=== PATIENT | male | born 1950 | race African-American/Black ===

== ENCOUNTER 2020-03-07 13:09 | Outpatient (REF) | payer MEDICARE, MEDICAID, SELFPAY ==
--- NOTE | 2020-03-07 | US_ITS ---
EXAMINATION: US SCROTUM CLINICAL INFORMATION: Scrotal swelling. COMPARISON: None TECHNIQUE: A sonogram of the scrotum was performed assessing willoughby-scale appearance and color Doppler flow. Spectral Doppler analysis of the arterial and venous flow were performed in the testes bilaterally. FINDINGS: RIGHT: Right testicle measures 3.6 x 2.6 x 2.1 cm, volume 10.3 mL. No focal testicular parenchymal lesions are visualized. Incidental findings of the right appendix testes is noted measuring 0.2 x 0.3 x 0.2 cm. A calcified lesion is seen likely a scrotal pole measuring 0.2 cm. Spectral Doppler analysis of the arterial and venous flow is normal in the right testis. Right epididymal head is normal in size. A small anechoic cyst in the epididymal tail versus a septation in a hydrocele. No right varicocele is seen. There is small right hydrocele. Right epididymal Doppler flow is normal. LEFT: Left testicle measures 3.2 x 2.0 x 2.5 cm, volume 9.6 mL. No focal testicular parenchymal lesions are visualized. Spectral Doppler analysis of the arterial and venous flow is normal in the left testis. Left epididymal head is normal in size. There are small anechoic cysts in the epididymis with largest measuring 0.5 x 0.5 x 0.5 cm. There is a small complex left hydrocele with septations. No left varicocele is seen. Left epididymal Doppler flow is normal. IMPRESSION: Bilateral hydroceles. No varicocele. Right epididymal tail cyst versus septated hydrocele. Right scrotal lucy and right appendix testes Left complex hydrocele and epididymal cyst x2
== END 2020-03-07 13:10 | disposition home or self-care (01) ==
LOC: HO.US 13:09
PROVIDERS: PCP Internal Medicine Geriatric Medicine; Visit Provider Internal Medicine Geriatric Medicine
DX: N50.89 Other specified disorders of the male genital organs (principal)
CPT/HCPCS: 76870

== ENCOUNTER → 2020-04-05 14:33 | Outpatient (BNVA) | payer MEDICARE, SELFPAY | PROVIDERS: PCP Internal Medicine Geriatric Medicine; Referring Provider Internal Medicine Geriatric Medicine; Visit Provider Urology | DX: Z76.89 Persons encountering health services in other specified circumstances (principal) | CPT/HCPCS: 99202 ==

== ENCOUNTER → 2020-12-21 11:46 | Outpatient (BNVA) | payer MEDICARE, SELFPAY | PROVIDERS: PCP Internal Medicine Geriatric Medicine; Referring Provider Internal Medicine Geriatric Medicine; Visit Provider Nurse Practitioner Family | DX: K92.1 Melena (principal) | CPT/HCPCS: 99202 ==

== ENCOUNTER 2021-01-04 13:24 | Outpatient (REF) | payer MEDICARE, SELFPAY ==
[2021-01-04 13:55] LABS: OBS1 POSITIVE (NEGATIVE)
[2021-01-04 13:56] LABS: OBS Int Ctl Valid YES; OBS2 NEGATIVE (NEGATIVE); OBS3 NEGATIVE (NEGATIVE)
== END 2021-01-04 13:25 | disposition home or self-care (01) ==
LOC: HO.LNP 13:24
PROVIDERS: Visit Provider Nurse Practitioner Family
DX: K92.1 Melena (principal)
CPT/HCPCS: 82270

== ENCOUNTER 2021-01-25 12:06 | Outpatient (REF) | payer MEDICARE, SELFPAY ==
[2021-01-25 14:23] LABS: Hematocrit 36.4 % (42-52); Hemoglobin 11.8 g/dl (14.0-18.0); Mean Corpuscular HGB Conc 32.4 g/dl (31.0-36.0); Mean Corpuscular Hemoglobin 29.1 pg (27.0-33.0); Mean Corpuscular Volume 89.7 fL (80-98); Mean Platelet Volume 9.8 fL (9.4-12.4); Platelet Count 190 X10*3/uL (160-400); Red Blood Count 4.06 X10*6/uL (4.60-5.80); Red Cell Distribution Width 13.8 % (11.0-16.0); White Blood Count 7.2 X10*3/uL (4.8-10.8)
[2021-01-25 14:45] LABS: Alanine Aminotransferase 38 U/L (0-40); Alkaline Phosphatase 121 U/L (39-117); Anion Gap 12 (12-20); Aspartate Amino Transferase 37 U/L (5-37); Bilirubin Total 0.8 mg/dL (0.0-1.0); Blood Urea Nitrogen 17 mg/dL (9-16); Calcium 9.5 mg/dL (8.4-10.2); Carbon Dioxide 29 mmol/L (22-29); Chloride 105 mmol/L (96-108); Estimated Glomerular Filt Rate > 60; Glucose Random 94 mg/dL (60-115); Potassium 4.4 mmol/L (3.3-5.1); Sodium 142 mmol/L (135-145); Total Protein 6.8 g/dL (6.5-8.0)
== END 2021-01-25 12:07 | disposition home or self-care (01) ==
LOC: CF 12:06
PROVIDERS: PCP Internal Medicine Geriatric Medicine; Referring Provider Internal Medicine Geriatric Medicine; Visit Provider Nurse Practitioner Family
DX: Z01.818 Encounter for other preprocedural examination (principal); K62.5 Hemorrhage of anus and rectum
CPT/HCPCS: 36415; 80053; 85027; 99212

== ENCOUNTER 2021-03-22 08:05 | Day surgery (SDC) | payer MEDICARE, SELFPAY ==
[2021-03-22 08:42] VITALS: BP 177/99; PULSE 59; RESP 16; TEMP 36.4; O2SAT 99; BMI 22.7
--- NOTE | 2021-03-22 08:58 | P.CONAN_ITS ---
[facility] Active Problems Active Problems: All Active Problems (Updated 03/16/21 @ 09:44 by Viridiana garcia, RN) Nocturia associated with benign prostatic hyperplasia (Acute) Bladder outlet obstruction (Acute) Past Medical History Medical History Cellulitis of right leg COPD (chronic obstructive pulmonary disease) History of CVA (cerebrovascular accident) History of opioid abuse HTN (hypertension) Hx of hepatitis C On beta bebeto at home Surgical History History of Problems with Anesthesia: No Social History Social History Patient Tobacco Use Status: Never used Tobacco Substance Use Type Other:: On suboxone Are you DNR?: No Advance Directives: No Advance Directives Information Provided: Yes Meds Allergies Allergy/AdvReac Type Severity Reaction Status Date / Time shrimp Allergy mild Verified 03/16/21 09:44 Home Medications Medication Instructions Recorded Confirmed Last Taken Type amlodipine 10 mg tablet 10 mg PO DAILY 04/05/20 03/16/21 Unknown History atorvastatin 40 mg tablet 40 mg PO DAILY 04/05/20 03/16/21 Unknown History buprenorphine 2 mg-naloxone 0.5 mg 2 mg SUBLINGUAL DAILY 04/05/20 03/22/21 03/22/21 04:00 History sublingual film albuterol sulfate 90 mcg/actuation 0 mcg INHALATION 12/21/20 Unknown History aerosol inhaler apixaban 5 mg tablet (Eliquis) 5 mg PO BID 12/21/20 03/22/21 03/08/21 History blood pressure test kit-large #1 ea 12/21/20 Unknown History melatonin 3 mg tablet (Melatin) 3 mg PO BEDTIME PRN 12/21/20 03/16/21 Unknown History metoprolol succinate 25 mg 25 mg PO DAILY 12/21/20 03/22/21 03/22/21 06:30 History tablet,extended release 24 hr tiotropium bromide 18 mcg capsule 1 cap INHALATION DAILY 12/21/20 03/16/21 Unknown History with inhalation device (Spiriva with HandiHaler) pantoprazole 40 mg tablet,delayed 1 tab PO DAILY 03/16/21 03/16/21 Unknown History release Exam Exam Date and Time: March 22, 2021 0858 Height,Weight and Vital Signs: Height 5 ft 9 in Weight 69.853 kg Last Vital Signs Temp 97.6 F 03/22/21 08:42 Pulse 59 03/22/21 08:42 Resp 16 03/22/21 08:42 BP 177/99 H 03/22/21 08:42 Pulse Ox 99 03/22/21 08:42 Airway Mallampati Class: II (Edentulous) TM Dist: >3cm Neck ROM: Full Denture: Upper and Lower Loose/Missing/Broken Teeth: Yes, Upper and Lower Heart: RRR Lungs: CTA Assessment and Plan Assessment Anesthesia Assessment: Anesthesia Plan Discussed and Chart Reviewed Final Anesthetic Review History of Problems with Anesthesia: No NPO: Yes ASA Class: III Final Preanesthetic Review: Meds/Allgs Chart Reviewed, Consent Obtained/Reviewed and Anes Risks/Benef Reviewed Patient Risk: Intermediate Procedure Risk: Low Anesthetic Plan Anesthetic Plan: MAC: Disposition: Standard PACU
[2021-03-22] MEDS: Lactated Ringers 1,000 ML 50 ML IVCONT (09:07)
--- NOTE | 2021-03-22 09:12 | P.HPSUR_ITS ---
Pre-Procedural Eval Section A Date of Service: 03/22/21 Section B Chief Complaint: Screening Relevant Family History (Specify if Yes): No Relevant Social History: None Present Medications: see Short Stay Collaborative assessment Medical History: Significant History (Cellulitis of right leg COPD (chronic obstructive pulmonary disease) History of CVA (cerebrovascular accident) History of opioid abuse HTN (hypertension) Hx of hepatitis C On beta bebeto at home) History of Previous Operations: Relevant previous surgery/procedure and date(s) (brain surgery) Allergies: Allergies Allergy/AdvReac Type Severity Reaction Status Date / Time shrimp Allergy mild Verified 03/16/21 09:44 Review of Systems Sugical H&P ROS: Negative: Constitution, Cardiovascular, Respiratory, Neurological, Psychiatric, Hem-Onc, Allergic/Immunologic, Gastrointestinal, Genitourinary, Musculoskeletal, Integumentary, Endocrine and Eyes/Ears/Nose/Throat Exam Surgical H&P Exam: Normal: HEENT, Normal: Heart, Normal: Lungs, Normal: Extre mities, Normal: Abdomen, Normal: Skin and Normal: Neurological Plan Diagnosis/Plan: Unchanged I have reviewed the history and physical and performed a pertinent physical examination on my patient. No changes have occurred unless specified.
--- NOTE | 2021-03-22 09:15 | P.BOP_ITS ---
Brief Operative Note Date of Service: 03/22/21 Pre-op diagnosis: colon screening Surgeon: Jordyn Cortez MD Was an Ship'S Carpenter used for this Procedure?: No Estimated blood loss (mL): 0
--- NOTE | 2021-03-22 09:15 | PM.OP ---
Brief Operative Note Date of Service: 03/22/21 Pre-op diagnosis: colon screening Surgeon: Jordyn Cortez MD Was an Grant Specialist used for this Procedure?: No Estimated blood loss (mL): 0
--- NOTE | 2021-03-22 09:38 | P.OP_ITS ---
Operative Note Operative Note Date of Service: 03/22/21 Narrative: Operative Information Procedure Description: Colonoscopy COLONOSCOPY Instrument: Olympus variable stiffness pediatric scope 190L Colonoscopy Monitoring: Vital signs and clinical assessment, continuous EKG monitoring, Pulse oximetry, Carbon Dioxide monitoring and blood pressure monitoring were done throughout the procedure. Colon withdrawal time was 9 minutes. Procedure: The patient was placed in the left lateral decubitis position and pre-procedure medications were administered. After a digital rectal examination of the ano-rectum, the video colonoscope was inserted into the rectum and advanced through the colon to the cecum/TI. The colonoscope was slowly withdrawn in a retrograde panoramic fashion and the colon mucosa was carefully examined including a retroflexed view of the rectum. Findings and interventions are described below. Procedure Difficulty:moderate, looping, pressure applied to get to cecum Findings: Terminal Ileum-normal Cecum:normal Ascending Colon: normal Transverse Colon -normal Descending Colon:normal Sigmoid Colon: normal Rectum: Retroflexion with small internal hemorrhoids, grade I, patchy erythema with few erosions noted, bx taken Anorectum - normal Colon preparation: Marlette Bowel Preparation Scale Right colon; 2 Transverse colon: 2 Left colon; 2 (0 = Unprepared colon segment with mucosa not seen due to solid stool that cannot be cleared. 1 = Portion of mucosa of the colon segment seen, but other areas of the colon segment not well seen due to staining, residual stool and/or opaque liquid. 2 = Minor amount of residual staining, small fragments of stool and/or opaque liquid, but mucosa of colon segment seen well. 3 = Entire mucosa of colon segment seen well with no residual staining, small fragments of stool or opaque liquid) Impression and Post Procedure Diagnosis: internal hemorrhoids mild proctitis Plan: High fiber diet leaflet Avoid straining at stool, epsom salts and sitz bath, anusol supps or cream Repeat Colonoscopy in 10 years or earlier if clinically indicated if symptomatic from proctitis then can treat with steroid or mesalamine supps Above findings were reviewed with the patient and relevant handouts were provided if indicated.
[2021-03-22 09:46] VITALS: BP 113/66; PULSE 60; RESP 16; TEMP 36.4; O2SAT 99
[2021-03-22 10:01] VITALS: BP 141/74; PULSE 55; RESP 17; TEMP 36.4; O2SAT 98
== END 2021-03-22 11:32 | disposition home or self-care (01) ==
PROVIDERS: PCP Internal Medicine Geriatric Medicine; Visit Provider Internal Medicine Gastroenterology
PROC: 0DJD8ZZ Inspection of Lower Intestinal Tract, Via Natural or Artificial Opening Endoscopic (ICD-10-PCS; CPT 45378; principal; 2021-03-22 09:20)
DX: Z12.11 Encounter for screening for malignant neoplasm of colon (principal); K64.0 First degree hemorrhoids; K62.89 Other specified diseases of anus and rectum; I10 Essential (primary) hypertension; J44.9 Chronic obstructive pulmonary disease, unspecified; I82.409 Acute embolism and thrombosis of unspecified deep veins of unspecified lower extremity; Z86.73 Personal history of transient ischemic attack (TIA), and cerebral infarction without residual deficits; Z79.01 Long term (current) use of anticoagulants; F11.20 Opioid dependence, uncomplicated; Z86.19 Personal history of other infectious and parasitic diseases; Z79.899 Other long term (current) drug therapy
CPT/HCPCS: 45380; 88305

== ENCOUNTER 2024-11-10 09:57 | Inpatient (IN) | payer MEDICARE, SELFPAY ==
[2024-11-10] VITALS (8 sets, daily range): BP systolic 116–141; BP diastolic 76–83; PULSE 83–100; RESP 12–100; TEMP 36.4–37; O2SAT 83–99; BMI 24.0; BMI 24.3; BMI 24.4
--- NOTE | ~2024-11-10 | US_ITS ---
EXAMINATION: US TRIPLEX LOWER EXTREMITY, BILATERAL CLINICAL INFORMATION: Pulmonary embolus COMPARISON: None available. TECHNIQUE: Color-flow triplex imaging with spectral analysis and compression Doppler were performed on the bilateral lower extremities. FINDINGS: Respiratory variation, normal compression and augmented flow are noted throughout the bilateral lower extremities. The visualized common femoral vein, superficial femoral vein, profunda femoral vein, popliteal vein and midcalf peroneal and posterior tibial venous segments show no evidence of deep venous thrombosis bilaterally. There is no Marcum's cyst. The left greater saphenous vein demonstrates noncompressible thrombus. US/US venous duplex LE BI IMPRESSION: 1. No evidence of deep venous thrombosis involving the bilateral lower extremities. 2. There is superficial thrombosis involving the LEFT greater saphenous vein. Electronically signed by: Brian Medina MD 11/10/2024 03:51 PM EDT
--- NOTE | ~2024-11-10 | CT_ITS ---
EXAMINATION: CT ANGIOGRAM CHEST CLINICAL INFORMATION: Elevated d-dimer. Pleuritic chest pain. History of DVT. COMPARISON: None available. TECHNIQUE: Multiple axial images were obtained through the chest after the administration of 65 mL of Omnipaque 350 intravenous contrast. Extensive vascular post-processing including two-dimensional and three-dimensional reformatted images were created and reviewed on an independent workstation. SmartPrep technique. This CT examination was performed using dose optimization techniques as appropriate, variously including the following: *Automated exposure control *Adjustment of mA and/or kV according to patient size (this includes techniques or standardized protocols for targeted exams where dose is matched to indication/reason for exam; i.e. extremities or head) *Use of iterative reconstruction technique DLP: 291 mGy centimeter. FINDINGS: Intraluminal filling defects extending from the distal right main pulmonary artery and to the subsegmental pulmonary branches to the right lung and subsegmental pulmonary branches to the left upper and left lower lung lobe. No aneurysm or dissection, thoracic aorta. Calcified plaque thoracic aortic wall and the origin of its main branches. The intervertebral septum is midline. Small volume, pericardial effusion Bilateral pleural effusions, moderate volume. No lymphadenopathy, mediastinum or perihilar. Calcified plaques in the coronary arteries. Centrilobular emphysematous changes both lungs. Linear attenuation abnormalities in the periphery of the lower lung lobes. No pneumothorax. No gross consolidation. 2 mm calcified pulmonary nodule, left lung base likely granuloma. Small volume hiatal hernia. Multilevel spondylosis without acute fracture or listhesis. S-shaped curvature of the thoracic spine. No lytic or blastic lesions.. CT/CT angio chest PE protocol IMPRESSION: Acute pulmonary artery emboli, bilaterally and subsegmental. Bilateral pleural effusions, moderate volume. Small volume pericardial effusion. Coronary artery disease and atherosclerosis disease. Scoliosis and multilevel spondylosis. COPD emphysematous type changes. Findings communicated to the emergency physician patient services assistant, Hue Fay thom at 1:38 PM on November 10/2025. Fleischner guidelines were followed. Electronically signed by: Manuel Reeves MD 11/10/2024 01:44 PM EDT
--- NOTE | ~2024-11-10 | XR_ITS ---
EXAMINATION: XR CHEST CLINICAL INFORMATION: CP, cough COMPARISON: 05/19/2019. TECHNIQUE: 2 views of the chest were obtained. FINDINGS: The cardiac, hilar, and mediastinal contours are normal. Aortic mural calcification and mild tortuosity. The lungs are diffusely hyperaerated suggesting COPD. There are tiny bilateral pleural effusions suspected, not previously present. There is no pneumothorax or pleural effusion. There is no focal osseous or soft tissue abnormality. XR/XR chest 2V IMPRESSION: 1. COPD. 2. Suspect tiny bilateral pleural effusions. 3. Lungs otherwise clear. Electronically signed by: Brian Medina MD 11/10/2024 10:43 AM EDT
--- NOTE | 2024-11-10 10:17 | ECG_ITS ---
Test Reason : chest pain Blood Pressure : */* mmHG Vent. Rate : 98 BPM Atrial Rate : 98 BPM P-R Int : 192 ms QRS Dur : 80 ms QT Int : 312 ms P-R-T Axes : 47 0 44 degrees QTcB Int : 398 ms Normal sinus rhythm Normal ECG No previous ECGs available Referred By: Generic ED Physician Electronically Signed By: BERNIE ESTRADA
[2024-11-10 10:39] LABS: MANUAL DIFF FLAG NO
[2024-11-10 10:41] LABS: Basophils Absolute Auto 0.1 X10*3/uL (0.0-0.2); Basophils Percent Auto 0.4 % (0-2); Eosinophils Absolute Auto 0.1 X10*3/uL (0.0-0.4); Eosinophils Percent Auto 0.6 % (0-4); Hematocrit 35.9 % (42.0-52.0); Hemoglobin 11.9 g/dl (14.0-18.0); Imm Gran Abs Auto 0.07 X10*3/uL (0.00-0.03); Imm Gran Pct Auto 0.6 % (0.0-0.4); Lymphocytes Absolute Auto 0.9 X10*3/uL (1.2-4.9); Lymphocytes Percent Auto 7.6 % (20-40); Mean Corpuscular HGB Conc 33.1 g/dl (31.0-36.0); Mean Corpuscular Hemoglobin 28.6 pg (27.0-33.0); Mean Corpuscular Volume 86.3 fL (80.0-98.0); Mean Platelet Volume 8.9 fL (9.4-12.4); Monocytes Absolute Auto 1.3 X10*3/uL (0.1-1.2); Monocytes Percent Auto 10.9 % (2-11); Neutrophils Absolute Auto 9.9 x10*3/uL (2.0-8.3); Neutrophils Percent Auto 79.9 % (45-73); Platelet Count 247 X10*3/uL (160-400); Red Blood Count 4.16 X10*6/uL (4.60-5.80); Red Cell Distribution Width 13.2 % (11.0-16.0); White Blood Count 12.3 X10*3/uL (4.8-10.8)
[2024-11-10 10:46] LABS: INTERNATIONAL NORM RATIO 1.2 (0.9-1.1); Prothrombin Time 13.4 SEC (10.9-12.4)
[2024-11-10 10:49] LABS: Partial Thromboplastin Time 28.9 SEC (26.0-36.8)
[2024-11-10 10:55] LABS: Alanine Aminotransferase 10 U/L (0-40); Albumin Level 3.7 g/dL (3.5-5.0); Alkaline Phosphatase 102 U/L (39-117); Anion Gap 11 (12-20); Aspartate Amino Transferase 25 U/L (5-37); Bilirubin Direct 0.4 mg/dL (0.0-0.5); Blood Urea Nitrogen 17 mg/dL (9-16); Calcium 9.4 mg/dL (8.4-10.2); Carbon Dioxide 29 mmol/L (22-29); Chloride 103 mmol/L (96-108); Creatinine Clr Calc Pharmacy 74.8; Estimated Glomerular Filt Rate > 60; Glucose Random 109 mg/dL (60-115); Lipase 11 U/L (8-78); Magnesium 1.7 mg/dL (1.6-2.6); Potassium 4.1 mmol/L (3.3-5.1); Sodium 139 mmol/L (135-145); Total Protein 6.5 g/dL (6.5-8.0)
[2024-11-10 11:00] LABS: B Type Natriuretic Peptide 31 pg/mL (<100)
[2024-11-10 11:02] LABS: Troponin-I High Sensitivity 4.8 ng/L (<3.5-35.0)
--- NOTE | 2024-11-10 11:11 | ED.SOB ---
HPI - SOB/Dyspnea General Chief Complaint: Dyspnea Stated Complaint: pain on left side, hurts to breathe Time Seen by Provider: 11/10/24 11:09 Source: patient and family (Daughter) Mode of arrival: ambulatory Limitations: no limitations History of Present Illness ED Provider: HUE GAY PA-C HPI Narrative: 74-year-old male with past medical history significant for asthma/COPD, hypertension, hypercholesterolemia, BPH, DVT (not on anticoagulation) presents to the ED today for evaluation of pleuritic chest pain x2 days. Patient reports a sharp pain in his left lung that occurs with deep inspiration. Endorses associated dry cough and shortness of breath. Denies any lower extremity pain. Denies hemoptysis. No blunt injury/ trauma/ falls. His daughter at bedside states that she recently just flew patient over from [place] at the end of September (3 weeks ago). She states that he was not getting appropriate medical care over there and was on the wait list to see specialists. This flight was approximately 3 hours. He was wearing compression stockings during the flight. His daughter states that he brought all of his medications with him from [place] however there was no anticoagulant included. States he was on apixaban for some time. Patient does not recall when or if this was discontinued. Denies fever, chills, sore throat, palpitations, N/V/D, abd pain. Related Data Home Medications ?Medication ?Instructions ?Recorded ?Confirmed amlodipine 10 mg tablet 10 mg PO DAILY 04/05/20 03/16/21 atorvastatin 40 mg tablet 40 mg PO DAILY 04/05/20 03/16/21 buprenorphine 2 mg-naloxone 0.5 mg 2 mg sublingual DAILY 04/05/20 03/22/21 sublingual film albuterol sulfate 90 mcg/actuation 0 mcg inhalation 12/21/20 aerosol inhaler apixaban 5 mg tablet (Eliquis) 5 mg PO BID 12/21/20 03/22/21 blood pressure test kit-large #1 ea 12/21/20 melatonin 3 mg tablet (Melatin) 3 mg PO BEDTIME PRN Sleep 12/21/20 03/16/21 metoprolol succinate 25 mg 25 mg PO DAILY 12/21/20 03/22/21 tablet,extended release 24 hr tiotropium bromide 18 mcg capsule 1 cap inhalation DAILY 12/21/20 03/16/21 with inhalation device (Spiriva with HandiHaler) pantoprazole 40 mg tablet,delayed 1 tab PO DAILY 03/16/21 03/16/21 release Previous Rx's ?Medication ?Instructions ?Recorded bisacodyl 5 mg tablet,delayed 10 mg (2 x 5 mg) PO ONCE 1 day #2 01/25/21 release (Dulcolax (bisacodyl)) tabs docusate sodium 100 mg capsule 100 mg PO BEDTIME #30 caps 01/25/21 polyethylene glycol 3350 17 238 g PO ONCE #238 grams 01/25/21 gram/dose oral powder (Miralax) Allergies Allergy/AdvReac Type Severity Reaction Status Date / Time shrimp Allergy mild Verified 11/10/24 10:16 Review of Systems Review of Systems: Constitutional: No fever, chills, fatigue, night sweats, weight changes ENT/Mouth: No ear pain, hearing loss, nasal congestion, sinus pain, rhinorrhea, sore throat Eyes: No eye pain, swelling, redness, vision changes, discharge Cardio: No chest pain, palpitations, AVINA, orthopnea, peripheral edema, + pleuritic chest pain Pulm: No sputum, wheezing, dyspnea, hemoptysis, +dry cough, +shortness of breath GI: No nausea, vomiting, hematemesis, abdominal pain, diarrhea, constipation, hematochezia, melena : No irregular bleeding, dysuria, frequency, urgency, hesitancy, hematuria, flank pain, urinary flow changes, urinary incontinence or retention MSK: No back pain, neck pain, joint pain, myalgias Skin: No lesions, rashes Neuro: No weakness, numbness, paresthesias, LOC, dizziness, headache Psych: No anxiety/panic, depression, SI/HI, AH/VH All other systems reviewed and are negative. [facility] Past Medical History Attestation statement: The following information was validated with the patient. Source: old records reviewed and nursing notes reviewed Medical History Hx of hepatitis C History of opioid abuse On beta bebeto at home History of CVA (cerebrovascular accident) COPD (chronic obstructive pulmonary disease) Cellulitis of right leg HTN (hypertension) Social History Social History (Reviewed 11/10/24 @ 11:52 by ANTHONY Fontanez Patient Tobacco Use Status: Never used Tobacco Smoked in Last 30 Days: No Use of substances other than those prescribed or required for medical reasons: No Advance Directives: No Advance Directives Information Provided: Yes Physical Exam Vital Signs: Vital Signs: Last Vital Signs Temp 98.6 F 11/10/24 11:56 Pulse 97 11/10/24 11:56 Resp 18 11/10/24 11:56 BP 128/79 11/10/24 11:56 Pulse Ox 83 L 11/10/24 13:38 O2 Del Method Room Air 11/10/24 11:56 BMI result Body Mass Index 24.3 Vital signs stable, satting 93% on room air, not tachycardic General: Well appearing, in no acute distress. Skin: Warm, dry, intact. No rashes or lesions. Head: Normocephalic, atraumatic. EENT: Hearing is intact b/l. Conjunctiva clear. PERRLA. EOM intact. Moist mucous membranes.? Neck: Supple without LAD Cardiac: Chest wall symmetric. RRR. No reproducible chest wall tenderness. No deformity. No crepitus. Lungs: Normal respiratory effort, no accessory muscle use, no tripoding, clutching left side of chest, appears uncomfortable with deep inspiration, lungs are CTA throughout without adventitious breath sounds. Abdomen: Soft, non-tender, non-distended. No rebound tenderness or guarding. Positive BS x4. Back: No midline spinous or paraspinal tenderness. No step off deformity. Ext: Upper and lower extremities atraumatic, without tenderness, deformity, swelling or erythema. No pitting edema. No calf tenderness. Neuro: AOx3. Normal speech. Ambulating with steady gait. Course Course Course Narrative: 1114 -- CBC showing leukocytosis to 12.3. Normocytic anemia, H and H appears stable when compared to priors. Chemistry without acute electrolyte abnormality requiring intervention. Renal function at baseline. Liver function WNL. Troponin WNL at 4.8. BNP WNL at 31. Chest x-ray showing findings consistent with COPD, tiny bilateral pleural effusions suspected, not previously seen on prior scans. negative covid, fu, rsv. EKG showing normal sinus rhythm, rate of 98 beats per minute, no acute ischemic changes or ST elevations. > viral swabs pending > ddimer, lactic, blood cultures ordered > ceftriaxone and IV tylenol ordered for coverage. patient does not meet SIRs criteria for sepsis at this time. 1159 -- ddimer elevated to 2090 -- concern for PE. CTA chest ordered. 1345 -- RN attempted ambulatory O2 trial with patient. Patient has sustained 95% on room air while ambulating however felt short of breath. Once he sat back down on the bed, O2 saturation dropped to 83%. Patient immediately placed on 2 L nasal cannula with improvement to mid 90s. > received message from radiologist, Dr. Reeves regarding findings from chest CTA. CTA showing acute pulmonary artery emboli, bilaterally and subsegmental with bilateral pleural effusions, small volume pericardial effusion. > discussed findings with my attending dr. dobson. Heparin protocol ordered. Patient has not been on his Eliquis for at least 3 weeks since returning from [place]. Will reach out to hospitalist. Venous duplex of bilateral lower extremities ordered for further evaluation. > discussed findings with patient and his daughter you are agreeable to admission Medications Administered Discontinued Medications Generic Name Dose Route Start Last Admin Trade Name Freq PRN Reason Stop Dose Admin Ceftriaxone Sodium 1 gm 11/10/24 11:24 11/10/24 11:56 Ceftriaxone Sodium 1 Gm Vial IVPUSH 11/10/24 11:25 1 gm ONCE ONE Administration Acetaminophen 1,000 mg in 100 mls @ 400 mls/hr 11/10/24 11:23 11/10/24 12:15 Ofirmev IV 11/10/24 11:37 Infused ONCE ONE Infusion Iohexol 100 ml 11/10/24 13:23 11/10/24 13:24 Iohexol 350 Mg/Ml 100 Ml Infus..Btl IV 11/10/24 13:24 65 ml ONCE ONE Administration Medical Decision Making Medical Decision Making MDM Narrative: 74-year-old male with past medical history significant for asthma/COPD, hypertension, hypercholesterolemia, BPH, DVT (not on anticoagulation) presents to the ED today for evaluation of pleuritic chest pain x2 days. Vital signs stable. He is not tachycardic, satting 93% on room air. Will obtain ambulatory O2. There is no noted respiratory distress however he appears uncomfortable, holding the left side of his chest. Lungs are CTA bilaterally without adventitious breath sounds. Appears uncomfortable with deep inspiration. No reproducible chest wall tenderness to palpation, no crepitus, no deformity. No pitting edema or calf tenderness bilaterally. Differential diagnosis includes anemia, electrolyte abnormality, bronchitis, pneumonia, COPD exacerbation, pleural effusion, PE, CHF, ACS, arrhythmia Plan for labs, EKG, chest x-ray, viral swabs, re-evaluation. Differential Diagnosis Differential Diagnoses: The differential diagnosis associated with the presentation includes As above Admission/Observation Consideration of admission/observation: Escalation of care including admission/observation considered Patient admitted to medicine for management of bilateral pulmonary emboli Consult Healthcare Provider Management of the patient was discussed with: Hospitalist (bouchra Parada) Lab Data MDM Lab Attestation statement: I reviewed the patient's lab results. As above 11/10/24 14:00 11/10/24 10:34 Labs: Lab Results 11/10/24 11/10/24 11/10/24 Range/Units 10:34 11:41 14:00 WBC 12.3 H 12.2 H (4.8-10.8) X10*3/uL RBC 4.16 L 3.94 L (4.60-5.80) X10*6/uL Hgb 11.9 L 11.4 L (14.0-18.0) g/dl Hct 35.9 L 33.4 L (42.0-52.0) % MCV 86.3 84.8 (80.0-98.0) fL MCH 28.6 28.9 (27.0-33.0) pg MCHC 33.1 34.1 (31.0-36.0) g/dl RDW 13.2 13.2 (11.0-16.0) % Plt Count 247 227 (160-400) X10*3/uL MPV 8.9 L 8.9 L (9.4-12.4) fL Immature Gran % (Auto) 0.6 H (0.0-0.4) % Neut % (Auto) 79.9 H (45-73) % Lymph % (Auto) 7.6 L (20-40) % [place] % (Auto) 10.9 (2-11) % Eos % (Auto) 0.6 (0-4) % Baso % (Auto) 0.4 (0-2) % Lymph # (Auto) 0.9 L (1.2-4.9) X10*3/uL [place] # (Auto) 1.3 H (0.1-1.2) X10*3/uL Eos # (Auto) 0.1 (0.0-0.4) X10*3/uL Baso # (Auto) 0.1 (0.0-0.2) X10*3/uL Abs Immat Gran (auto) 0.07 H (0.00-0.03) X10*3/uL Absolute Neuts (auto) 9.9 H (2.0-8.3) x10*3/uL Absolute Nucleated RBC 0.000 0.000 (0.0-0.012) X10*3/uL Nucleated RBC % (auto) 0.0 0.0 (0.0-0.2) /100WBC PT 13.4 H (10.9-12.4) SEC INR 1.2 H (0.9-1.1) APTT 28.9 (26.0-36.8) SEC D-Dimer High Sensitivty 2090 NG/ML Sodium 139 (135-145) mmol/L Potassium 4.1 (3.3-5.1) mmol/L Chloride 103 (96-108) mmol/L Carbon Dioxide 29 (22-29) mmol/L Anion Gap 11 L (12-20) BUN 17 H (9-16) mg/dL Creatinine 0.84 (0.5-1.4) mg/dL Estim Creat Clear Calc 74.8 Estimated GFR > 60 Random Glucose 109 (60-115) mg/dL Lactic Acid 1.0 (0.5-2.0) mmol/L Calcium 9.4 (8.4-10.2) mg/dL Magnesium 1.7 (1.6-2.6) mg/dL Total Bilirubin 1.0 (0.0-1.0) mg/dL Direct Bilirubin 0.4 (0.0-0.5) mg/dL AST 25 (5-37) U/L ALT 10 (0-40) U/L Alkaline Phosphatase 102 (39-117) U/L Troponin I High Sens 4.8 (<3.5-35.0) ng/L B-Natriuretic Peptide 31 (<100) pg/mL Total Protein 6.5 (6.5-8.0) g/dL Albumin 3.7 (3.5-5.0) g/dL Lipase 11 (8-78) U/L Influenza Type A (PCR) NEGATIVE (Negative) Influenza Type B (PCR) NEGATIVE (Negative) RSV RNA Qual (PCR) NEGATIVE (Negative) SARS-CoV-2 RNA (RT-PCR) NEGATIVE (Negative) Independent Interpretation I performed an independent interpretation of an: EKG and Plain X-Ray Interpretation: EKG showing normal sinus rhythm, rate of 98 beats per minute, QT 312, QTC 398, no acute ischemic changes or ST elevations Chest x-ray showing bilateral small pleural effusion cta chest showing bilateral pulmonary emboli Radiology Impression Discussion of test interpretation with radiology: I have reviewed the radiologist's reading. Radiologist Impression: Date of Service: 11/10/24 Procedure(s): XR chest 2V Accession Number(s): [id number] cc: Generic ED Physician; Physician,None ~ EXAMINATION: XR CHEST CLINICAL INFORMATION: CP, cough COMPARISON: 05/19/2019. TECHNIQUE: 2 views of the chest were obtained. FINDINGS: The cardiac, hilar, and mediastinal contours are normal. Aortic mural calcification and mild tortuosity. The lungs are diffusely hyperaerated suggesting COPD. There are tiny bilateral pleural effusions suspected, not previously present. There is no pneumothorax or pleural effusion. There is no focal osseous or soft tissue abnormality. XR/XR chest 2V IMPRESSION: 1. COPD. 2. Suspect tiny bilateral pleural effusions. 3. Lungs otherwise clear. Electronically signed by: Brian Medina MD 11/10/2024 10:43 AM EDT Date of Service: 11/10/24 Procedure(s): CT angio chest PE protocol Accession Number(s): [id number] cc: Physician,None ; Hue Gay~ Report Number: [id number]: Total DLP = 291.00 mGy-cm EXAMINATION: CT ANGIOGRAM CHEST CLINICAL INFORMATION: Elevated d-dimer. Pleuritic chest pain. History of DVT. COMPARISON: None available. TECHNIQUE: Multiple axial images were obtained through the chest after the administration of 65 mL of Omnipaque 350 intravenous contrast. Extensive vascular post-processing including two-dimensional and three-dimensional reformatted images were created and reviewed on an independent workstation. SmartPrep technique. This CT examination was performed using dose optimization techniques as appropriate, variously including the following: *Automated exposure control *Adjustment of mA and/or kV according to patient size (this includes techniques or standardized protocols for targeted exams where dose is matched to indication/reason for exam; i.e. extremities or head) *Use of iterative reconstruction technique DLP: 291 mGy centimeter. FINDINGS: Intraluminal filling defects extending from the distal right main pulmonary artery and to the subsegmental pulmonary branches to the right lung and subsegmental pulmonary branches to the left upper and left lower lung lobe. No aneurysm or dissection, thoracic aorta. Calcified plaque thoracic aortic wall and the origin of its main branches. The intervertebral septum is midline. Small volume, pericardial effusion Bilateral pleural effusions, moderate volume. No lymphadenopathy, mediastinum or perihilar. Calcified plaques in the coronary arteries. Centrilobular emphysematous changes both lungs. Linear attenuation abnormalities in the periphery of the lower lung lobes. No pneumothorax. No gross consolidation. 2 mm calcified pulmonary nodule, left lung base likely granuloma. Small volume hiatal hernia. Multilevel spondylosis without acute fracture or listhesis. S-shaped curvature of the thoracic spine. No lytic or blastic lesions.. CT/CT angio chest PE protocol IMPRESSION: Acute pulmonary artery emboli, bilaterally and subsegmental. Bilateral pleural effusions, moderate volume. Small volume pericardial effusion. Coronary artery disease and atherosclerosis disease. Scoliosis and multilevel spondylosis. COPD emphysematous type changes. Findings communicated to the emergency physician clinical project assistant, Hue Sanz [facility] at 1:38 PM on November 10/2025. Fleischner guidelines were followed. Electronically signed by: Manuel Reeves MD 11/10/2024 01:44 PM EDT Independent Historian Clinical information obtained from an independent historian. History obtained from or confirmed by: Other (daughter) External Record Review External record reviewed: Inpatient record Prescription Management I considered prescription management with: Other (Anticoagulation) Chronic Conditions Patient?s care impacted by: Hypertension and Other (COPD, DVT) Social Determinants Patient?s care significantly limited by Social Determinants of Health including: Other Social Determinant of Health Critical Care Time Critical Care Time Critical Care Time: Yes Total Critical Care Time: 45 Attestation: Critical care time in the amount of 45 minutes has been provided to the patient in terms of direct patient care, frequent reevaluation, consultation with hospitalist, review and interpretation of medical data and results, and management of potentially life-threatening conditions. This is all outside of any medical procedures. Discharge Plan Discharge Clinical Impression: Bilateral pulmonary embolism, Acute hypoxemic respiratory failure Patient Disposition: Admitted As Inpatient
[2024-11-10 11:19] LABS: Influenza A PCR NEGATIVE (Negative); Influenza B PCR NEGATIVE (Negative); Resp Syncy Virus RNA Qual PCR NEGATIVE (Negative); SARS COV2 PCR INHOUSE NEGATIVE (Negative)
--- OUTSIDE RECORDS SUMMARY | 2024-11-10 11:47 | XMS_ITS | Clinical Summary ---
Author Organization [employer] Address [address] [place] [address] Care Team Providers Care Biotechnologist Name Role Phone Unavailable Primary Care Provider Unavailabl e Encounters Date Type Department Care Team Description 11/02/2024 Telephone [facility] [address] [place] [id number] Harry Cooper MD New PT Appt from Last 3 Months Social History Tobacco Use Types Packs/Day Years Used Date Smoking Tobacco: Never Assessed Sex and Gender Information Value Date Recorded Sex Assigned at Male 03/19/2022 10:34 AM EDT Legal Sex Male 10:34 AM EDT Gender Identity Male 03/19/2022 10:34 AM EDT Sexual Orientation Straight 03/19/2022 10 :34 AM EDT Last Filed Vital Signs Vital Sign Reading Time Taken Comments Blood Pressure 151/90 11/08/2021 12:06 AM EDT Pulse 79 11/08/2021 12:06 AM EDT Temperature - - Respiratory Rate - - Oxygen Saturation - - Inhaled Oxygen Concentration - - Weight 68.4 kg (150 lb 12.8 oz) 022 12:06 AM EDT Height 172.7 cm (5' 8 ) 11/08/2021 12:0 6 AM EDT Body Mass Index 22.93 11/08/2021 12:06 AM EDT Plan of Treatment Health Maintenance Due Date Last Done Comments Depression Screening 1950 Alcohol/Substance Use Screening 1960 Tobacco Screening 1962 Zoster Vaccines (1 of 2) 01/20/1998 DTaP/Tdap/Td Vaccines (2 - T d or Tdap) 10/07/2018 10/07/2008 Pneumococcal Vaccine: 50+ Years (2 of 2 - PPSV23) 02/23/2021 02/24/2020 RSV Patients and Patients Aged 60 years or older (1 - 1-dose 75+ series) 01/20/2023 COVID-19 Vaccine (2023-2 5 season) 2024 03/07/2021, 08/10/2020, 07/20/2020 Influenza Vaccine (Season Ended) 2025 12/22/2021, 03/07/2021, 02/06/2020 Lipid Panel 12/19/2025 12/19/2020 Colonoscopy Discontinued 03/22/2021 Colorectal Cancer Screening Discontinued CT Colonography Discontinued FIT DNA/Cologuard Discontinued FIT Discontinued FOBT Discontinued HIB Vaccines Aged Out No longer eligi ble based on patient's age to complete this topic HPV Vaccines Aged Out No longer eligi ble based on patient's age to complete this topic Hepatitis A Vaccines Aged Out No long er eligible based on patient's age to complete this topic Hepatitis B Vaccines Aged Out No long er eligible based on patient's age to complete this topic IPV Vaccines Aged Out No longer eligi ble based on patient's age to complete this topic Meningococcal B Vaccine Aged Out No l onger eligible based on patient's age to complete this topic Meningococcal Vaccine Aged Out No raciel barbie eligible based on patient's age to complete this topic RSV under 20 months Aged Out No longe r eligible based on patient's age to complete this topic Rotavirus Vaccines Aged Out No longer eligible based on patient's age to complete this topic Sigmoidoscopy Discontinued Procedures Procedure Name Priority Date/Time Associated Diagnosis Comments COLONOSCOPY Routine 03/22/2021 LIPID PANEL, STANDARD Routine 12/19/2020 10:45 AM EDT from Last 3 Months or Most Recently Relevant to Health Maintenance Results * Hm Colonoscopy (03/22/2021) Colonoscopy Normal Normal 03/22/2021 Janis Adorno - 03/22/2021 12:55 PM EDT Recommended 10 year follow up us Historical Provider MD HEALTH MAINTENANCE Final Result * LIPID PANEL, STANDARD (12/19/2020 10:45 AM EDT) Chol/HDLC Ratio 1.9 <5.0 (calc) [facility] Cholesterol, Total 91 <200 mg/dL [facility] HDL Cholesterol 47 > OR = 40 mg/dL [facility] LDL Cholesterol 35 mg/dL (calc) [facility] Comment: Reference range: <100 Desirable range <100 mg/dL for primary prevention; <70 mg/dL for patients with CHD or diabetic patients with > or = 2 CHD risk factors. LDL-C is now calculated using the Jesús calculation, which is a validated novel method providing better accuracy than the Friedewald equation in the estimation of LDL-C. Dillon SS et al. SHEILA. 2013;310(19): 4677-4009 (http://education.[employer]/faq/TAO624) Non-HDL Cholesterol 44 <130 mg/dL (calc) [facility] Comment: For patients with diabetes plus 1 major ASCVD risk factor, treating to a non-HDL-C goal of <100 mg/dL (LDL-C of <70 mg/dL) is considered a therapeutic option. Triglycerides 33 <150 mg/dL [facility] 12/19/2020 10:4 5 AM EDT us Kerry MCHUGHP LAB BLOOD ORDERABLES Final Res ult [facility] [address] from Last 3 Months or Most Recently Relevant to Health Maintenance
[2024-11-10] MEDS: Acetaminophen 1,000 MG/100 ML PIGGYBACK 400 MG IV (11:55)
[2024-11-10 11:56] LABS: D Dimer High Sensitivity 2090 NG/ML
[2024-11-10] MEDS: cefTRIAXone sodium 1 GM VIAL IVPUSH (11:56)
[2024-11-10] MEDS: iohexoL 350 MG/ML 100 ML INFUS..BTL IV (13:24)
[2024-11-10 14:06] LABS: Hematocrit 33.4 % (42.0-52.0); Hemoglobin 11.4 g/dl (14.0-18.0); Mean Corpuscular HGB Conc 34.1 g/dl (31.0-36.0); Mean Corpuscular Hemoglobin 28.9 pg (27.0-33.0); Mean Corpuscular Volume 84.8 fL (80.0-98.0); Mean Platelet Volume 8.9 fL (9.4-12.4); Platelet Count 227 X10*3/uL (160-400); Red Blood Count 3.94 X10*6/uL (4.60-5.80); Red Cell Distribution Width 13.2 % (11.0-16.0); White Blood Count 12.2 X10*3/uL (4.8-10.8)
[2024-11-10 14:11] LABS: Venous Blood Gas Refer to POC result
[2024-11-10 14:12] LABS: VBG Base Excess 8.5 mmol/L; VBG HCO3 32 mmol/L (22-26); VBG pCO2 44 mmHg; VBG pH 7.48 (7.32-7.43); VBG pO2 57 mmHg
[2024-11-10 14:16] LABS: INTERNATIONAL NORM RATIO 1.3 (0.9-1.1); Prothrombin Time 14.4 SEC (10.9-12.4)
[2024-11-10 14:18] LABS: PTT Heparin Drip 26.9 SEC (53-77.9)
--- NOTE | 2024-11-10 14:19 | PC.NURSE ---
Ambulating O2 trial done by this RN- pt O2 sat remained >92% on RA while ambulating. When placed back into bed, pt O2 sat decreased to 83% on RA with a significant increase in SOB/WOB. Placed on 2L O2 NC with good recovery- O2 sats high 90s, SOB/WOB decreased, RR 18-22. Documented in worklist, Hue VILLALPANDO made aware.
[2024-11-10] MEDS: Heparin Sodium,Porcine 5,000 UNIT/ML VIAL 5900 UNIT IVPUSH (14:50)
[2024-11-10] MEDS: Heparin Sodium,Porcine/1/2NS 25,000 UNIT/250 ML IV.SOLN 10.33 UNIT IVCONT (14:51)
--- NOTE | 2024-11-10 15:12 | PHA.MEDREC ---
Pharmacy Consult ? Medication Reconciliation Pharmacy has completed the medication reconciliation. Spoke to patient through industrial trainer service to confirm med list. Patients daughter had all of patient rx bottle with her. daughter confirmed Amlodipine is 5 mg daily, HCTZ 25 mg QOD. Patient states he takes Suboxone 8/2 daily, however claims has Suboxone 8mg/2mg TID. Patient states he stopped Ferrous sulfate 325 mg for a few days because he had constipation.
--- NOTE | 2024-11-10 15:21 | PHA.MEDREC ---
Addendum entered by Sj Gonzalez [facility] 11/10/24 15:25: MED REC CHECKED BY [facility] Original Note: Pharmacy Consult ? Medication Reconciliation Pharmacy has completed the medication reconciliation. Spoke to patient through bilingual interpreter service to confirm med list. Patients daughter had all of patient rx bottle with her. daughter confirmed Amlodipine is 5 mg daily, HCTZ 25 mg QOD. Patient states he takes Suboxone 8/2 daily, however claims has Suboxone 8mg/2mg TID. Patient states he stopped Ferrous sulfate 325 mg for a few days because he had constipation. Daughter states patient was on Eliquis , however it has been a long time since he was on and there are no claim history.
--- NOTE | 2024-11-10 16:00 | P.HPHOSP_ITS ---
History of Present Illness Date of Service: 11/10/24 Attending physician on admission: [facility] Chief Complaint: chest pain Patient is a 74-year-old male with a past medical history significant for COPD/asthma overlap, history DVT no longer on Eliquis, HTN, HLD, substance use disorder on Suboxone, GERD, and BPH, who presented to the ED due to pleuritic chest pain for the past 2 days in the left lower chest with a cough. He reports the cough is dry denies any hemoptysis. He was saturating at 92% on room air but desaturated down to 83% requiring oxygen supplementation. Patient reports he has been using his home inhalers but they have not been helpful for his cough, which have not been helpful. He is unsure why he had a DVT in the past he reports that he was previously in [place] and moved here at the end of September as he was not getting appropriate care and was on the wait list to see a specialist there. The daughter reported that when the patient came to [facility] from [place] there was no anticoagulant included in his medications. Review of Systems 2 Constitutional: Constitutional: Denies body ache(s), Denies chills, Denies fatigue, Denies fever(s) and Denies headache(s) Eyes: Eyes: Denies change in vision and Denies loss of vision ENT: Denies headache(s), Denies nasal congestion and Denies sore throat Cardiovascular: Cardiovascular: Reports as per HPI Respiratory: Respiratory: Reports as per HPI and Denies wheezing Gastrointestinal: Gastrointestinal: Denies abdominal pain, Denies diarrhea, Denies nausea and Denies vomiting Genitourinary: Genitourinary: Denies dysuria Musculoskeletal: Musculoskeletal: Denies back pain and Denies myalgias Integumentary/Breasts: Skin/Breast: Denies rash Neurologic: Denies confusion, Denies headache(s) and Denies loss of vision Psychiatric: Psychiatric: Denies confusion Endocrine: Endocrine: Denies fatigue Hematologic/Lymphatic: Hematologic/Lymphatic: Denies easy bleeding and Denies easy bruising Allergic/Immunologic: Allergic/Immunologic: Denies wheezing [facility] Medical History Hx of hepatitis C History of opioid abuse On beta bebeto at home History of CVA (cerebrovascular accident) COPD (chronic obstructive pulmonary disease) Cellulitis of right leg HTN (hypertension) Functional capacity: independent ambulation Social History Household Members: Children Housing: House Patient Tobacco Use Status: Never used Tobacco Smoked in Last 30 Days: No e-Cigarette/Vaping Use: Former Use Patient Interested in Nicotine Replacement: No Patient Given Instructions on How to Stop Smoking: No Use of substances other than those prescribed or required for medical reasons: No Currently Displaying Signs/Symptoms of Drug Intoxication Withdrawal: No Have you been hit, kicked, punched, or otherwise hurt by someone within the past year? If so, by whom?: No Do you feel safe in your current relationship?: No Is there a partner from a previous relationship who is making you feel unsafe now?: No Are you made to feel afraid or neglected: No Advance Directives: No Advance Directives Information Provided: Yes Do you have a plan to hurt others: No Plan Recently lost weight without trying: No Eating poorly because of decreased appetite: No Nutrition Risks: No Nutritional Risk Poor oral hygiene: No Narrative: No smoking, alcohol or drug use Meds Allergies Allergy/AdvReac Type Severity Reaction Status Date / Time shrimp Allergy mild Verified 11/10/24 10:16 Active Medications: Current Medications Heparin Sodium (Porcine) (Heparin Sodium,Porcine 5,000 Unit/Ml Vial) 3,000 unit 40 unit/kg (3000 unit) IVPUSH PROTOCOL BOLUS PRN; Protocol PRN Reason: 40 unit/kg - Heparin Protocol Heparin Sodium (Porcine) (Heparin Sodium,Porcine 5,000 Unit/Ml Vial) 5,900 unit 80 unit/kg (5900 unit) IVPUSH PROTOCOL BOLUS PRN; Protocol PRN Reason: 80 unit/kg - Heparin Protocol Heparin Sodium/Sodium Chloride (Heparin Sodium,Porcine/1/2ns) 25,000 unit in 250 mls @ 0 mls/hr IVCONT .Q0M [facility]; Protocol Last Admin: 11/10/24 14:51 Dose: 14 units/kg/hr, 10.33 mls/hr Home Medications ?Medication ?Instructions ?Recorded ?Confirmed ?Last Taken ?Type atorvastatin 40 mg tablet 40 mg PO DAILY 04/05/2010/1911/10/24 History blood pressure test kit-large #1 ea 12/21/20 Unknown History pantoprazole 40 mg tablet,delayed 1 tab PO DAILY 03/1611/10/24 11/10/24 History release albuterol sulfate 90 mcg/actuation 1 puff inhalation Q 4-6H 11/10/24 11/10/24 11/10/24 History aerosol inhaler amitriptyline 10 mg tablet 10 mg PO BEDTIME 11/10/24 0 11/10/24 11/09/24 History amlodipine 5 mg tablet 5 mg PO DAILY 11/10/2411/1011/10/24 History aspirin 81 mg tablet 81 mg PO DAILY 11/10/2410/1911/09/24 History buprenorphine 8 mg-naloxone 2 mg 1 film sublingual TID 11/10/24 11/10/24 11/10/24 History sublingual film carvedilol 6.25 mg tablet 6.25 mg PO BID 11/10/2410/1911/10/24 History famotidine 20 mg tablet 20 mg PO DAILY 11/10/2410/1911/10/24 History ferrous sulfate 325 mg (65 mg 325 mg PO DAILY 11/10/24 11/10/24 11/05/24 History iron) tablet (FeroSul) furosemide 20 mg tablet 20 mg PO DAILY 11/10/2410/1911/10/24 History hydrochlorothiazide 25 mg tablet 25 mg PO Q48H 5 11/10/24 11/10/24 History tamsulosin 0.4 mg capsule 0.4 mg PO BEDTIME 11/10/24 0 11/10/24 11/09/24 History tiotropium bromide 18 mcg capsule 1 cap inhalation SANTHOSH LY 11/10/24 11/10/24 11/10/24 History with inhalation device (Spiriva with HandiHaler) Physical Exam 2 Vital Signs and Narrative: Vital Signs: Last Vital Signs Temp 98.6 F 11/10/24 11:56 Pulse 94 11/10/24 14:17 Resp 100 H 11/10/24 14:17 BP 135/83 11/10/24 14:17 Pulse Ox 94 11/10/24 14:17 O2 Del Method Room Air 11/10/24 14:17 BMI result Body Mass Index 24.3 General: AOx3, no acute distress Resp: Diminished due to pain with deep inspiration, no wheezing or crackles CVS: Tachy, normal rhythm GI: +BS, NT, no distention Skin: Warm, dry Neuro: Cranial nerves II-XII grossly intact bilaterally. Motor grossly intact bilaterally Extremities: No lower extremity edema Psych: Appropriate affect Const: General: No confusion Orientation/consciousness: No confusion Neuro: General: No confusion Results Labs 11/11/24 06:54 11/11/24 06:54 Labs: Laboratory Results - last 24 hr 11/10/24 11/10/24 11/10/24 10:34 11:41 14:00 MCV 86.3 84.8 MCH 28.6 28.9 MCHC 33.1 34.1 RDW 13.2 13.2 Plt Count 247 227 MPV 8.9 L 8.9 L Immature Gran % (Auto) 0.6 H Neut % (Auto) 79.9 H Lymph % (Auto) 7.6 L [place] % (Auto) 10.9 Eos % (Auto) 0.6 Baso % (Auto) 0.4 Lymph # (Auto) 0.9 L [place] # (Auto) 1.3 H Eos # (Auto) 0.1 Baso # (Auto) 0.1 Abs Immat Gran (auto) 0.07 H Absolute Neuts (auto) 9.9 H Absolute Nucleated RBC 0.000 0.000 Nucleated RBC % (auto) 0.0 0.0 PT 13.4 H 14.4 H INR 1.2 H 1.3 H APTT 28.9 aPTT Heparin Protocol 26.9 L D-Dimer High Sensitivty 2090 VBG pH VBG pCO2 VBG pO2 VBG HCO3 VBG O2 Saturation VBG Base Excess Anion Gap 11 L Estim Creat Clear Calc 74.8 Estimated GFR > 60 Random Glucose 109 Lactic Acid 1.0 Calcium 9.4 Magnesium 1.7 Total Bilirubin 1.0 Direct Bilirubin 0.4 AST 25 ALT 10 Alkaline Phosphatase 102 Troponin I High Sens 4.8 B-Natriuretic Peptide 31 Total Protein 6.5 Albumin 3.7 Lipase 11 Influenza Type A (PCR) NEGATIVE Influenza Type B (PCR) NEGATIVE RSV RNA Qual (PCR) NEGATIVE SARS-CoV-2 RNA (RT-PCR) NEGATIVE 11/10/24 14:08 MCV MCH MCHC RDW Plt Count MPV Immature Gran % (Auto) Neut % (Auto) Lymph % (Auto) [place] % (Auto) Eos % (Auto) Baso % (Auto) Lymph # (Auto) [place] # (Auto) Eos # (Auto) Baso # (Auto) Abs Immat Gran (auto) Absolute Neuts (auto) Absolute Nucleated RBC Nucleated RBC % (auto) PT INR APTT aPTT Heparin Protocol D-Dimer High Sensitivty VBG pH 7.48 H VBG pCO2 44 VBG pO2 57 VBG HCO3 32 H VBG O2 Saturation 86.0 VBG Base Excess 8.5 Anion Gap Estim Creat Clear Calc Estimated GFR Random Glucose Lactic Acid Calcium Magnesium Total Bilirubin Direct Bilirubin AST ALT Alkaline Phosphatase Troponin I High Sens B-Natriuretic Peptide Total Protein Albumin Lipase Influenza Type A (PCR) Influenza Type B (PCR) RSV RNA Qual (PCR) SARS-CoV-2 RNA (RT-PCR) Imaging Radiologist's Impressions: Impressions Chest X-Ray 11/10/24 10:30 IMPRESSION: 1. COPD. 2. Suspect tiny bilateral pleural effusions. 3. Lungs otherwise clear. Electronically signed by: Brian Medina MD 11/10/2024 10:43 AM EDT Chest CTA 11/10/24 12:52 IMPRESSION: Acute pulmonary artery emboli, bilaterally and subsegmental. Bilateral pleural effusions, moderate volume. Small volume pericardial effusion. Coronary artery disease and atherosclerosis disease. Scoliosis and multilevel spondylosis. COPD emphysematous type changes. Findings communicated to the emergency physician housekeeper/laundry assistant, Hue Melendez [employer] [facility] [employer] at 1:38 PM on November 10/2025. Fleischner guidelines were followed. Electronically signed by: Manuel Reeves MD 11/10/2024 01:44 PM EDT Venous Duplex 11/10/24 15:23 IMPRESSION: 1. No evidence of deep venous thrombosis involving the bilateral lower extremities. 2. There is superficial thrombosis involving the LEFT greater saphenous vein. Electronically signed by: Brian Medina MD 11/10/2024 03:51 PM EDT Assessment and Plan (1) Acute hypoxemic respiratory failure: Status: Acute (2) Bilateral pulmonary embolism: Status: Acute (3) Bilateral pleural effusion: Status: Acute Plan Patient is a 74-year-old male with a past medical history significant for COPD/asthma overlap, history DVT no longer on Eliquis, HTN, HLD, substance use disorder on Suboxone, GERD, and BPH, who presented to the ED due to pleuritic chest pain for the past 2 days in the left lower chest with a cough. Acute hypoxic respiratory failure secondary to bilateral pulmonary emboli with bilateral pleural effusions - WBC 12.2, reactive tachycardic and tachypneic secondary to PE, lactic acid normal, blood cultures x2 pending, no infection identified - chest x-ray with COPD, suspect tiny bilateral effusions - D-dimer 1999 - chest CTA with acute pulmonary artery emboli, bilaterally and subsegmental. Bilateral pleural effusions, moderate volume. Small volume pericardial effusion. - venous Doppler ultrasounds bilaterally with no evidence of DVT. Superficial thrombosis advancing the left greater saphenous vein. - patient started on heparin protocol - titrate oxygen as needed - vascular consult - NPO after midnight - we will need to address bilateral pulmonary emboli prior to pleural effusions, not a candidate for thoracentesis at this time COPD/asthma overlap without acute exacerbation - no wheezing on exam - continue home inhalers HTN - continue amlodipine, carvedilol, hydrochlorothiazide HLD - continue statin GERD - continue PPI and famotidine BPH - continue tamsulosin Full code VTE prophylaxis: Heparin Patient with acute hypoxic respiratory failure secondary to bilateral pulmonary emboli with bilateral pleural effusions, admission for at least 2 midnight stay for widening all anticoagulation and vascular consultation. Quality Stroke Does the patient have a stroke diagnosis?: No VTE Prior VTE?: Yes VTE Risk Level:: Medical - moderate - high VTE Device Contraindication: Treatment Not Indicated VTE Drug Contraindication: N/A - Med Ordered
[2024-11-10] MEDS: hydroCHLOROthiazide 25 MG TABLET PO (17:38)
--- NOTE | 2024-11-10 19:33 | PC.NURSE ---
Out of bed to bathroom, ambulates with steady gait. Heparin drip continues to infuse as ordered. Oxygen at 2LPM via nasal cannula. Bed assignment 485, pending transport to assist with transfer from ED to [facility]. Care ongoing by this RN.
[2024-11-10] MEDS: Amitriptyline HCl 10 MG TABLET PO (20:43)
[2024-11-10] MEDS: Tamsulosin HCL 0.4 MG CAPSULE PO (20:43)
[2024-11-10] MEDS: Docusate Sodium 100 MG CAPSULE PO (20:44)
[2024-11-10] MEDS: Buprenorphine/Naloxone 8/2 mg FILM 1 FILM SUBLINGUAL (20:44)
[2024-11-10] MEDS: carvediloL 6.25 MG TABLET PO (20:44)
[2024-11-11] VITALS (38 sets, daily range): BP systolic 88–142; BP diastolic 59–88; PULSE 75–107; RESP 14–22; TEMP 36.2–37.2; O2SAT 93–99
[2024-11-11] MEDS: Omeprazole 20 MG CAPSULE.DR PO (06:33)
[2024-11-11 07:00] LABS: MANUAL DIFF FLAG NO
[2024-11-11 07:03] LABS: Basophils Absolute Auto 0.1 X10*3/uL (0.0-0.2); Basophils Percent Auto 0.5 % (0-2); Eosinophils Absolute Auto 0.1 X10*3/uL (0.0-0.4); Eosinophils Percent Auto 0.9 % (0-4); Hematocrit 34.1 % (42.0-52.0); Hemoglobin 11.8 g/dl (14.0-18.0); Imm Gran Abs Auto 0.08 X10*3/uL (0.00-0.03); Imm Gran Pct Auto 0.7 % (0.0-0.4); Lymphocytes Absolute Auto 1.4 X10*3/uL (1.2-4.9); Lymphocytes Percent Auto 12.3 % (20-40); Mean Corpuscular HGB Conc 34.6 g/dl (31.0-36.0); Mean Corpuscular Hemoglobin 29.2 pg (27.0-33.0); Mean Corpuscular Volume 84.4 fL (80.0-98.0); Mean Platelet Volume 9.1 fL (9.4-12.4); Monocytes Absolute Auto 1.3 X10*3/uL (0.1-1.2); Monocytes Percent Auto 11.3 % (2-11); Neutrophils Absolute Auto 8.2 x10*3/uL (2.0-8.3); Neutrophils Percent Auto 74.3 % (45-73); Platelet Count 222 X10*3/uL (160-400); Red Blood Count 4.04 X10*6/uL (4.60-5.80); Red Cell Distribution Width 12.9 % (11.0-16.0); White Blood Count 11.1 X10*3/uL (4.8-10.8)
[2024-11-11 07:16] LABS: INTERNATIONAL NORM RATIO 1.2 (0.9-1.1); Prothrombin Time 14.3 SEC (10.9-12.4)
[2024-11-11 07:19] LABS: PTT Heparin Drip 44.1 SEC (53-77.9)
[2024-11-11 07:31] LABS: Anion Gap 12 (12-20); Blood Urea Nitrogen 12 mg/dL (9-16); Calcium 8.5 mg/dL (8.4-10.2); Carbon Dioxide 29 mmol/L (22-29); Chloride 100 mmol/L (96-108); Creatinine Clr Calc Pharmacy 89.7; Estimated Glomerular Filt Rate > 60; Glucose Random 85 mg/dL (60-115); Potassium 3.9 mmol/L (3.3-5.1); Sodium 137 mmol/L (135-145)
[2024-11-11] MEDS: Heparin Sodium,Porcine 5,000 UNIT/ML VIAL 3000 UNIT IVPUSH (07:34)
--- NOTE | 2024-11-11 07:39 | PM.CNGS ---
History of Present Illness Consult details Consult date: 11/11/24 Reason for consult: other (PE) Narrative: Pleasant 74-year-old gentleman with a prior history of DVT presented to the hospital with acute shortness of breath yesterday. He does have a prior history of a DVT several years prior. Apparently he was on anticoagulation and it was stopped in [place] for some reason. He does have a history of COPD and asthma. At the time of presentation in the hospital he was acutely short of breath and had sats down to 86%. He was subsequently admitted worked up and on CT angiogram was found to have bilateral pulmonary embolisms. He now presents to us for vascular evaluation. Review of Systems Review of Systems: Yes all other systems are reviewed and are negative Constitutional: Constitutional: Reports no additional constitutional complaints ENT: Reports Normal hearing present Cardiovascular: Cardiovascular: Denies chest pain, Denies chest pain at rest, Denies chest pain with activity and Denies pedal edema Respiratory: Respiratory: Denies cough Gastrointestinal: Gastrointestinal: Denies abdominal pain Musculoskeletal: Musculoskeletal: Denies abnormal gait, Denies muscle cramps and Denies radiating pain into limb Integumentary/Breasts: Skin/Breast: Denies skin ulcer and Denies wounds Neurologic: Reports Normal hearing present and Denies abnormal gait Psychiatric: Psychiatric: Reports no additional psychiatric complaints PMFSH Past Medical History Medical History Hx of hepatitis C History of opioid abuse On beta bebeto at home History of CVA (cerebrovascular accident) COPD (chronic obstructive pulmonary disease) Cellulitis of right leg HTN (hypertension) Social History Social History Household Members: Children Housing: House Patient Tobacco Use Status: Never used Tobacco Smoked in Last 30 Days: No e-Cigarette/Vaping Use: Former Use Patient Interested in Nicotine Replacement: No Patient Given Instructions on How to Stop Smoking: No Use of substances other than those prescribed or required for medical reasons: No Currently Displaying Signs/Symptoms of Drug Intoxication Withdrawal: No Have you been hit, kicked, punched, or otherwise hurt by someone within the past year? If so, by whom?: No Do you feel safe in your current relationship?: No Is there a partner from a previous relationship who is making you feel unsafe now?: No Are you made to feel afraid or neglected: No Advance Directives: No Advance Directives Information Provided: Yes Do you have a plan to hurt others: No Plan Recently lost weight without trying: No Eating poorly because of decreased appetite: No Nutrition Risks: No Nutritional Risk Poor oral hygiene: No Meds Allergies Allergy/AdvReac Type Severity Reaction Status Date / Time shrimp Allergy mild Verified 11/10/24 10:16 Active Medications: Current Medications Acetaminophen (Acetaminophen 325 Mg Tablet) 650 mg PO Q6H PRN PRN Reason: Pain, Mild 1-3,fever,headache Amitriptyline HCl (Amitriptyline Hcl 10 Mg Tablet) 10 mg PO BEDTIME JEANNINE Last Admin: 11/10/24 20:43 Dose: 10 mg Amlodipine Besylate (Amlodipine Besylate 5 Mg Tablet) 5 mg PO DAILY [facility]; Protocol Aspirin (Aspirin Enteric Coated 81 Mg Tablet.) 81 mg PO DAILY [facility] Atorvastatin Calcium (Atorvastatin Calcium 40 Mg Tablet) 40 mg PO DAILY [facility] Buprenorphine/Naloxone (Buprenorphine/Naloxone 8/2 Mg Film) 1 film SUBLINGUAL TID [facility] Last Admin: 11/10/24 20:44 Dose: 1 film Calcium Carbonate (Calcium Carbonate 750 Mg Tab.Chew) 750 mg PO Q4H PRN PRN Reason: Heartburn Carvedilol (Carvedilol 6.25 Mg Tablet) 6.25 mg PO BID [facility]; Protocol Last Admin: 11/10/24 20:44 Dose: 6.25 mg Docusate Sodium (Docusate Sodium 100 Mg Capsule) 100 mg PO BEDTIME JEANNINE Last Admin: 11/10/24 20:44 Dose: 100 mg Famotidine (Famotidine 20 Mg Tablet) 20 mg PO DAILY [facility] Ferrous Sulfate (Ferrous Sulfate 324 Mg Tablet.) 324 mg PO DAILY [facility] Furosemide (Furosemide 20 Mg Tablet) 20 mg PO DAILY [facility]; Protocol Heparin Sodium (Porcine) (Heparin Sodium,Porcine 5,000 Unit/Ml Vial) 3,000 unit 40 unit/kg (3000 unit) IVPUSH PROTOCOL BOLUS PRN; Protocol PRN Reason: 40 unit/kg - Heparin Protocol Last Admin: 11/11/24 07:34 Dose: 3,000 unit Heparin Sodium (Porcine) (Heparin Sodium,Porcine 5,000 Unit/Ml Vial) 5,900 unit 80 unit/kg (5900 unit) IVPUSH PROTOCOL BOLUS PRN; Protocol PRN Reason: 80 unit/kg - Heparin Protocol Hydrochlorothiazide (Hydrochlorothiazide 25 Mg Tablet) 25 mg PO Q48H [facility]; Protocol Last Admin: 11/10/24 17:38 Dose: 25 mg Heparin Sodium/Sodium Chloride (Heparin Sodium,Porcine/1/2ns) 25,000 unit in 250 mls @ 0 mls/hr IVCONT .Q0M [facility]; Protocol Last Titration: 11/11/24 07:35 Dose: 12 units/kg/hr, 8.86 mls/hr Magnesium Hydroxide (Milk Of Magnesia 30 Ml Oral.Susp) 30 ml PO DAILY PRN PRN Reason: Constipation Melatonin (Melatonin 3 Mg Tablet) 6 mg PO BEDTIME PRN PRN Reason: Insomnia Morphine Sulfate (Morphine Sulfate 4 Mg/Ml Cartridge) 2 mg IVPUSH Q4H PRN; Protocol PRN Reason: Pain, Severe (Pain Scale 7-10) Omeprazole (Omeprazole 20 Mg Capsule.Dr) 20 mg PO DAILY@0630 [facility] Last Admin: 11/11/24 06:33 Dose: 20 mg Ondansetron HCl (Ondansetron Hcl 4 Mg/2 Ml Vial) 4 mg IVPUSH Q8H PRN PRN Reason: Nausea and Vomiting Oxycodone HCl (Oxycodone Hcl Immed Release 5 Mg Tablet) 5 mg PO Q6H PRN PRN Reason: Pain, Moderate(Pain Scale 4-6) Sodium Chloride (0.9 % Sodium Chloride Flush 3 Ml Syringe) 3 ml IVFLUSH QSHIFT [facility] Last Admin: 11/11/24 01:43 Dose: Not Given Tamsulosin HCl (Tamsulosin Hcl 0.4 Mg Capsule) 0.4 mg PO BEDTIME [facility] Last Admin: 11/10/24 20:43 Dose: 0.4 mg Tiotropium [place] (Tiotropium [place] 2.5 Mcg 1 Puff/2.5 Mcg Mist.Inhal) 2 puff INHALE RDAILY [facility] Home Medications ?Medication ?Instructions ?Recorded ?Confirmed ?Last Taken ?Type atorvastatin 40 mg tablet 40 mg PO DAILY 04/05/20 11/10/24 11/10/24 History blood pressure test kit-large #1 ea 12/21/20 Unknown History pantoprazole 40 mg tablet,delayed 1 tab PO DAILY 03/16/21 11/10/24 11/10/24 History release albuterol sulfate 90 mcg/actuation 1 puff inhalation Q4-6H 11/10/24 11/10/24 11/10/24 History aerosol inhaler amitriptyline 10 mg tablet 10 mg PO BEDTIME 11/10/24 11/10/24 11/09/24 History amlodipine 5 mg tablet 5 mg PO DAILY 11/10/24 11/10/24 11/10/24 History aspirin 81 mg tablet 81 mg PO DAILY 11/10/24 11/10/24 11/09/24 History buprenorphine 8 mg-naloxone 2 mg 1 film sublingual TID 11/10/24 11/10/24 11/10/24 History sublingual film carvedilol 6.25 mg tablet 6.25 mg PO BID 11/10/24 11/10/24 11/10/24 History famotidine 20 mg tablet 20 mg PO DAILY 11/10/24 11/10/24 11/10/24 History ferrous sulfate 325 mg (65 mg 325 mg PO DAILY 11/10/24 11/10/24 11/05/24 History iron) tablet (FeroSul) furosemide 20 mg tablet 20 mg PO DAILY 11/10/24 11/10/24 11/10/24 History hydrochlorothiazide 25 mg tablet 25 mg PO Q48H 11/10/24 11/10/24 11/10/24 History tamsulosin 0.4 mg capsule 0.4 mg PO BEDTIME 11/10/24 11/10/24 11/09/24 History tiotropium bromide 18 mcg capsule 1 cap inhalation DAILY 11/10/24 11/10/24 11/10/24 History with inhalation device (Spiriva with HandiHaler) Physical Exam Vital Signs: Vital Signs: Last Vital Signs Temp 98.4 F 11/11/24 03:57 Pulse 83 11/11/24 03:57 Resp 18 11/11/24 03:57 BP 121/77 11/11/24 03:57 Pulse Ox 97 11/11/24 03:57 O2 Del Method Nasal Cannula 11/11/24 03:57 O2 Flow Rate 1 11/11/24 03:57 BMI result Body Mass Index 24.4 Const: General: cooperative, healthy appearing and comfortable Orientation/consciousness: oriented to person, oriented to place and oriented to time HEENT: Head: Yes normal to inspection Neck: Neck: Yes normal visual inspection Carotids: no bruits Chest: Chest palpation & inspection: normal inspection of the chest Resp: Effort & Inspection: normal respiratory effort and able to speak in complete sentences Auscultation: clear to auscultation bilaterally, no crackles, no rales, no rhonchi and no wheezes Cardio: Rate: regular rate Rhythm: regular rhythm Heart sounds: S1 normal heart sound present and S2 normal heart sound present Bruits: no carotid bruits Peripheral pulses: Peripheral pulses 2+ throughout GI: Inspection: Yes normal to inspection Skin: Wounds: no wounds Hair: normal Neuro: General: oriented to person, oriented to place and oriented to time Cranial nerves: Yes CN's II-XII intact bilaterally and Yes Normal hearing present Cognition (Neuro): normal cognition Motor exam (neuro): 5/5 motor strength present throughout Extrem: Other: venous exam: No significant superficial varicosities or spider telangiectasias, minimal edema General: No clubbing, No cyanosis and No edema Psych: Appearance: grossly normal Mental Status: mental status grossly normal Speech and movement: Normal speech and movement present Results Labs 11/11/24 06:54 11/11/24 06:54 Labs: Abnormal lab results 11/10/24 11/10/24 11/10/24 Range/Units 10:34 14:00 14:08 WBC 12.3 H 12.2 H (4.8-10.8) X10*3/uL RBC 4.16 L 3.94 L (4.60-5.80) X10*6/uL Hgb 11.9 L 11.4 L (14.0-18.0) g/dl Hct 35.9 L 33.4 L (42.0-52.0) % MPV 8.9 L 8.9 L (9.4-12.4) fL Immature Gran % (Auto) 0.6 H (0.0-0.4) % Neut % (Auto) 79.9 H (45-73) % Lymph % (Auto) 7.6 L (20-40) % [place] % (Auto) (2-11) % Lymph # (Auto) 0.9 L (1.2-4.9) X10*3/uL [place] # (Auto) 1.3 H (0.1-1.2) X10*3/uL Abs Immat Gran (auto) 0.07 H (0.00-0.03) X10*3/uL Absolute Neuts (auto) 9.9 H (2.0-8.3) x10*3/uL PT 13.4 H 14.4 H (10.9-12.4) SEC INR 1.2 H 1.3 H (0.9-1.1) aPTT Heparin Protocol 26.9 L (53-77.9) SEC VBG pH 7.48 H (7.32-7.43) VBG HCO3 32 H (22-26) mmol/L Anion Gap 11 L (12-20) BUN 17 H (9-16) mg/dL 11/10/24 11/11/24 Range/Units 20:57 06:54 WBC 11.1 H (4.8-10.8) X10*3/uL RBC 4.04 L (4.60-5.80) X10*6/uL Hgb 11.8 L (14.0-18.0) g/dl Hct 34.1 L (42.0-52.0) % MPV 9.1 L (9.4-12.4) fL Immature Gran % (Auto) 0.7 H (0.0-0.4) % Neut % (Auto) 74.3 H (45-73) % Lymph % (Auto) 12.3 L (20-40) % [place] % (Auto) 11.3 H (2-11) % Lymph # (Auto) (1.2-4.9) X10*3/uL [place] # (Auto) 1.3 H (0.1-1.2) X10*3/uL Abs Immat Gran (auto) 0.08 H (0.00-0.03) X10*3/uL Absolute Neuts (auto) (2.0-8.3) x10*3/uL PT 14.3 H (10.9-12.4) SEC INR 1.2 H (0.9-1.1) aPTT Heparin Protocol 146.0 H* D 44.1 L D (53-77.9) SEC VBG pH (7.32-7.43) VBG HCO3 (22-26) mmol/L Anion Gap (12-20) BUN (9-16) mg/dL Short CBC 11/10/24 11/10/24 11/11/24 Range/Units 10:34 14:00 06:54 WBC 12.3 H 12.2 H 11.1 H (4.8-10.8) X10*3/uL Hgb 11.9 L 11.4 L 11.8 L (14.0-18.0) g/dl Hct 35.9 L 33.4 L 34.1 L (42.0-52.0) % Plt Count 247 227 222 (160-400) X10*3/uL BMP 11/10/24 11/11/24 10:34 06:54 Sodium 139 137 Potassium 4.1 3.9 Chloride 103 100 Carbon Dioxide 29 29 BUN 17 H 12 Creatinine 0.84 0.70 Calcium 9.4 8.5 D Liver Function 11/10/24 Range/Units 10:34 Total Bilirubin 1.0 (0.0-1.0) mg/dL Direct Bilirubin 0.4 (0.0-0.5) mg/dL AST 25 (5-37) U/L ALT 10 (0-40) U/L Alkaline Phosphatase 102 (39-117) U/L Albumin 3.7 (3.5-5.0) g/dL All other labs normal. Imaging Additional studies: CT angiogram of the chest demonstrates thrombus from right main to segmental branches on the left side segmental and subsegmental branches. Assessment and Plan (1) Bilateral pulmonary embolism: Status: Acute Plan In short patient has bilateral pulmonary embolisms. He will require pulmonary embolectomy. Risks benefits complications were discussed in detail with the patient. He agreed and consented and would like to move forward. We will schedule for later this morning. Thank you for allowing us to assist in his care. If there are any questions or concerns please do not hesitate to contact us. Total time managing care of this patient today: 60 minutes. Procedures Date of Service Date of Service: 11/11/24
[2024-11-11] MEDS: Furosemide 20 MG TABLET PO (08:24)
[2024-11-11] MEDS: Buprenorphine/Naloxone 8/2 mg FILM 1 FILM SUBLINGUAL ×2 (08:25→21:48)
[2024-11-11] MEDS: Famotidine 20 MG TABLET PO (08:25)
[2024-11-11] MEDS: Aspirin Enteric Coated 81 MG TABLET.DR PO (08:25)
[2024-11-11] MEDS: carvediloL 6.25 MG TABLET PO (08:25)
[2024-11-11] MEDS: amLODIPine Besylate 5 MG TABLET PO (08:25)
[2024-11-11] MEDS: 0.9 % Sodium Chloride 1,000 ML 100 ML IVCONT (08:26)
[2024-11-11] MEDS: Atorvastatin Calcium 40 MG TABLET PO (08:26)
[2024-11-11] MEDS: Ferrous Sulfate 324 MG TABLET.DR PO (08:26)
--- NOTE | 2024-11-11 09:13 | HO.PM.IMPN ---
Subjective Subjective Date of Service: 11/11/24 Interval History: f/u on acute art pulmonary embolism associated with chest pain and hypoxia He reports feeling better this morning, no chest pain or sob at the moment and is hemodynamically stable other than slight tachcyardia Physical Exam Vital Signs: Vital Signs: Last Vital Signs Temp 97.4 F 11/11/24 07:43 Pulse 104 H 11/11/24 08:25 Resp 20 11/11/24 07:43 BP 122/78 11/11/24 08:25 Pulse Ox 99 11/11/24 07:43 O2 Del Method Nasal Cannula 11/11/24 07:43 O2 Flow Rate 1 11/11/24 07:43 BMI result Body Mass Index 24.4 Const: Other: General: AO X 3, no acute distress Resp: CTA bilateral CVS: S1,S2,RRR GI: +BS, NT, no distention Skin: No rash Neuro: motor grossly intact Psych: appropriate affect Objective Data Active Medications Acetaminophen (Acetaminophen 325 Mg Tablet) 650 mg PO Q6H PRN PRN Reason: Pain, Mild 1-3,fever,headache Amitriptyline HCl (Amitriptyline Hcl 10 Mg Tablet) 10 mg PO BEDTIME [facility] Last Admin: 11/10/24 20:43 Dose: 10 mg Documented By: KARLA Amlodipine Besylate (Amlodipine Besylate 5 Mg Tablet) 5 mg PO DAILY [facility]; Protocol Last Admin: 11/11/24 08:25 Dose: 5 mg Documented By: SUZETTE Aspirin (Aspirin Enteric Coated 81 Mg Tablet.Dr) 81 mg PO DAILY [facility] Last Admin: 11/11/24 08:25 Dose: 81 mg Documented By: SUZETTE Atorvastatin Calcium (Atorvastatin Calcium 40 Mg Tablet) 40 mg PO DAILY [facility] Last Admin: 11/11/24 08:26 Dose: 40 mg Documented By: SUZETTE Buprenorphine/Naloxone (Buprenorphine/Naloxone 8/2 Mg Film) 1 film SUBLINGUAL TID [facility] Last Admin: 11/11/24 08:25 Dose: 1 film Documented By: SUZETTE Calcium Carbonate (Calcium Carbonate 750 Mg Tab.Chew) 750 mg PO Q4H PRN PRN Reason: Heartburn Carvedilol (Carvedilol 6.25 Mg Tablet) 6.25 mg PO BID [facility]; Protocol Last Admin: 11/11/24 08:25 Dose: 6.25 mg Documented By: SUZETTE Docusate Sodium (Docusate Sodium 100 Mg Capsule) 100 mg PO BEDTIME JEANNINE Last Admin: 11/10/24 20:44 Dose: 100 mg Documented By: KARLA Famotidine (Famotidine 20 Mg Tablet) 20 mg PO DAILY [facility] Last Admin: 11/11/24 08:25 Dose: 20 mg Documented By: SUZETTE Ferrous Sulfate (Ferrous Sulfate 324 Mg Tablet.Dr) 324 mg PO DAILY JEANNINE Last Admin: 11/11/24 08:26 Dose: 324 mg Documented By: SUZETTE Furosemide (Furosemide 20 Mg Tablet) 20 mg PO DAILY [facility]; Protocol Last Admin: 11/11/24 08:24 Dose: 20 mg Documented By: SUZETTE Heparin Sodium (Porcine) (Heparin Sodium,Porcine 5,000 Unit/Ml Vial) 3,000 unit 40 unit/kg (3000 unit) IVPUSH PROTOCOL BOLUS PRN; Protocol PRN Reason: 40 unit/kg - Heparin Protocol Last Admin: 11/11/24 07:34 Dose: 3,000 unit Documented By: SUZETTE Heparin Sodium (Porcine) (Heparin Sodium,Porcine 5,000 Unit/Ml Vial) 5,900 unit 80 unit/kg (5900 unit) IVPUSH PROTOCOL BOLUS PRN; Protocol PRN Reason: 80 unit/kg - Heparin Protocol Hydrochlorothiazide (Hydrochlorothiazide 25 Mg Tablet) 25 mg PO Q48H [facility]ANNINE; Protocol Last Admin: 11/10/24 17:38 Dose: 25 mg Documented By: PALOMO Heparin Sodium/Sodium Chloride (Heparin Sodium,Porcine/1/2ns) 25,000 unit in 250 mls @ 0 mls/hr IVCONT .Q0M [facility]; Protocol Last Titration: 11/11/24 07:35 Dose: 12 units/kg/hr, 8.86 mls/hr Documented By: SUZETTE Co-signed By: KARLA Sodium Chloride (Ns) 1,000 mls @ 100 mls/hr IVCONT .Q10H [facility] Last Infusion: 11/11/24 08:36 Dose: 0 mls/hr Documented By: SUZETTE Magnesium Hydroxide (Milk Of Magnesia 30 Ml Oral.Susp) 30 ml PO DAILY PRN PRN Reason: Constipation Melatonin (Melatonin 3 Mg Tablet) 6 mg PO BEDTIME PRN PRN Reason: Insomnia Morphine Sulfate (Morphine Sulfate 4 Mg/Ml Cartridge) 2 mg IVPUSH Q4H PRN; Protocol PRN Reason: Pain, Severe (Pain Scale 7-10) Omeprazole (Omeprazole 20 Mg Capsule.Dr) 20 mg PO DAILY@0630 [facility] Last Admin: 11/11/24 06:33 Dose: 20 mg Documented By: KARLA Ondansetron HCl (Ondansetron Hcl 4 Mg/2 Ml Vial) 4 mg IVPUSH Q8H PRN PRN Reason: Nausea and Vomiting Oxycodone HCl (Oxycodone Hcl Immed Release 5 Mg Tablet) 5 mg PO Q6H PRN PRN Reason: Pain, Moderate(Pain Scale 4-6) Sodium Chloride (0.9 % Sodium Chloride Flush 3 Ml Syringe) 3 ml IVFLUSH QSHIFT [facility] Last Admin: 11/11/24 08:26 Dose: Not Given Documented By: SUZETTE Non-Admin Reason: IV Running Tamsulosin HCl (Tamsulosin Hcl 0.4 Mg Capsule) 0.4 mg PO BEDTIME [facility] Last Admin: 11/10/24 20:43 Dose: 0.4 mg Documented By: KARLA Tiotropium [place] (Tiotropium [place] 2.5 Mcg 1 Puff/2.5 Mcg Mist.Inhal) 2 puff INHALE RDAILY [facility] Labs 11/11/24 06:54 11/11/24 06:54 Labs: Laboratory Results - last 24 hr 11/10/24 11/10/24 11/10/24 10:34 11:41 14:00 MCV 86.3 84.8 MCH 28.6 28.9 MCHC 33.1 34.1 RDW 13.2 13.2 Plt Count 247 227 MPV 8.9 L 8.9 L Immature Gran % (Auto) 0.6 H Neut % (Auto) 79.9 H Lymph % (Auto) 7.6 L [place] % (Auto) 10.9 Eos % (Auto) 0.6 Baso % (Auto) 0.4 Lymph # (Auto) 0.9 L [place] # (Auto) 1.3 H Eos # (Auto) 0.1 Baso # (Auto) 0.1 Abs Immat Gran (auto) 0.07 H Absolute Neuts (auto) 9.9 H Absolute Nucleated RBC 0.000 0.000 Nucleated RBC % (auto) 0.0 0.0 PT 13.4 H 14.4 H INR 1.2 H 1.3 H APTT 28.9 aPTT Heparin Protocol 26.9 L D-Dimer High Sensitivty 2090 VBG pH VBG pCO2 VBG pO2 VBG HCO3 VBG O2 Saturation VBG Base Excess Anion Gap 11 L Estim Creat Clear Calc 74.8 Estimated GFR > 60 Random Glucose 109 Lactic Acid 1.0 Calcium 9.4 Magnesium 1.7 Total Bilirubin 1.0 Direct Bilirubin 0.4 AST 25 ALT 10 Alkaline Phosphatase 102 Troponin I High Sens 4.8 B-Natriuretic Peptide 31 Total Protein 6.5 Albumin 3.7 Lipase 11 Influenza Type A (PCR) NEGATIVE Influenza Type B (PCR) NEGATIVE RSV RNA Qual (PCR) NEGATIVE SARS-CoV-2 RNA (RT-PCR) NEGATIVE 11/10/24 11/10/24 11/10/24 14:08 20:57 23:37 MCV MCH MCHC RDW Plt Count MPV Immature Gran % (Auto) Neut % (Auto) Lymph % (Auto) [place] % (Auto) Eos % (Auto) Baso % (Auto) Lymph # (Auto) [place] # (Auto) Eos # (Auto) Baso # (Auto) Abs Immat Gran (auto) Absolute Neuts (auto) Absolute Nucleated RBC Nucleated RBC % (auto) PT INR APTT aPTT Heparin Protocol 146.0 H* D 57.0 D D-Dimer High Sensitivty VBG pH 7.48 H VBG pCO2 44 VBG pO2 57 VBG HCO3 32 H VBG O2 Saturation 86.0 VBG Base Excess 8.5 Anion Gap Estim Creat Clear Calc Estimated GFR Random Glucose Lactic Acid Calcium Magnesium Total Bilirubin Direct Bilirubin AST ALT Alkaline Phosphatase Troponin I High Sens B-Natriuretic Peptide Total Protein Albumin Lipase Influenza Type A (PCR) Influenza Type B (PCR) RSV RNA Qual (PCR) SARS-CoV-2 RNA (RT-PCR) 11/11/24 06:54 MCV 84.4 MCH 29.2 MCHC 34.6 RDW 12.9 Plt Count 222 MPV 9.1 L Immature Gran % (Auto) 0.7 H Neut % (Auto) 74.3 H Lymph % (Auto) 12.3 L [place] % (Auto) 11.3 H Eos % (Auto) 0.9 Baso % (Auto) 0.5 Lymph # (Auto) 1.4 [place] # (Auto) 1.3 H Eos # (Auto) 0.1 Baso # (Auto) 0.1 Abs Immat Gran (auto) 0.08 H Absolute Neuts (auto) 8.2 Absolute Nucleated RBC 0.000 Nucleated RBC % (auto) 0.0 PT 14.3 H INR 1.2 H APTT aPTT Heparin Protocol 44.1 L D D-Dimer High Sensitivty VBG pH VBG pCO2 VBG pO2 VBG HCO3 VBG O2 Saturation VBG Base Excess Anion Gap 12 Estim Creat Clear Calc 89.7 Estimated GFR > 60 Random Glucose 85 Lactic Acid Calcium 8.5 D Magnesium Total Bilirubin Direct Bilirubin AST ALT Alkaline Phosphatase Troponin I High Sens B-Natriuretic Peptide Total Protein Albumin Lipase Influenza Type A (PCR) Influenza Type B (PCR) RSV RNA Qual (PCR) SARS-CoV-2 RNA (RT-PCR) Assessment and Plan (1) Bilateral pulmonary embolism: Status: Acute Plan Patient is a 74-year-old male with a past medical history significant for COPD/asthma overlap, history DVT no longer on Eliquis, HTN, HLD, substance use disorder on Suboxone, GERD, and BPH, who presented to the ED due to pleuritic chest pain for the past 2 days in the left lower chest with a cough. Acute hypoxic respiratory failure secondary to bilateral pulmonary emboli with bilateral pleural effusions, he has history of VTE but no longer on anticoagulation continue IV heparin for embolectomy by vascular sugery today secondary work up can be pursuit on outpatient basis will get an echocardiogram O2 as needed COPD/asthma overlap without acute exacerbation no wheezing on exam continue home inhalers HTN,controlled continue amlodipine, carvedilol, hydrochlorothiazide HLD continue statin GERD continue PPI and famotidine BPH continue tamsulosin Full code VTE prophylaxis: Heparin Need for inpatient: IV heparin for PE Quality Stroke Does the patient have a stroke diagnosis?: No VTE Prior VTE?: Yes VTE Risk Level:: Medical - moderate - high VTE Device Contraindication: Treatment Not Indicated VTE Drug Contraindication: N/A - Med Ordered
--- NOTE | 2024-11-11 10:46 | PC.NURSE ---
hep gtt stopped per dr newton at 1611
[2024-11-11] MEDS: fentaNYL citrate/PF 100 MCG/2 ML VIAL 25 MCG IVPUSH ×3 (11:37→12:40)
[2024-11-11] MEDS: Midazolam HCl 2 MG/2 ML VIAL 0.5 MG IVPUSH ×3 (11:37→12:40)
[2024-11-11] MEDS: Heparin Sodium,Porcine 10,000 UNIT/10 ML VIAL 5000 UNIT IVPUSH (12:02)
[2024-11-11] MEDS: Heparin Sodium,Porcine 10,000 UNIT/10 ML VIAL 3000 UNIT IVPUSH (12:15)
[2024-11-11] MEDS: ondansetron HCL 4 MG/2 ML VIAL IVPUSH (12:44)
--- NOTE | 2024-11-11 13:35 | W.PM.OPN ---
Operative Note Operative Note Date of Service: 11/11/24 Narrative: Operative note by [facility] Preoperative diagnosis: DVT with PE Postoperative diagnosis: Same Procedure:1. Ultrasound-guided right common femoral vein access 2. Inferior vena cavogram 3. Selective right pulmonary artery angiogram 4. Selective left pulmonary artery angiogram 5. Mechanical thrombectomy of pulmonary embolism of bilateral pulmonary artery 6. Return of blood using flow Saver system 7. Radiologic supervision and interpretation. Surgeon:Gla York M.D. Business Consult: None Anesthesia: Local with moderate conscious sedation. Total intraservice moderate sedation time was 103 minutes. I monitored the patient's level of consciousness and physiologic status continuously throughout the procedure. Specimens: none Drains :none Estimated blood loss: Less than 50 ml Radiation dose: 548.1 mGy Implant: None Comorbid conditions: Acute respiratory failure with hypoxia, bilateral pleural effusion, bladder outlet obstruction, COPD, asthma, substance abuse disorder, Indications: Patient was noted to have submassive pulmonary embolism.. CT of the chest was reviewed and demonstrated right mainstem pulmonary embolism along with left-sided PE as well. Heparin drip was initiated immediately. Due to the clot burden the patient now presents for pulmonary embolectomy. The patient has signed the informed consent after reviewing risks, complications, benefits, and alternatives previously discussed with the patient. The patient was given the opportunity to ask any additional questions or voice any concerns. All questions were answered to the patient's satisfaction. Procedure in detail: Patient was brought to the angiography suite prior to which a time-out was called for patient identification and site verification. Bilateral groins were prepped and draped in the standard surgical fashion. Under ultrasound guidance right common femoral vein was punctured with micro puncture needle and wire. Subsequently a precision 5 [place] sheath was then placed. Bentson wire was advanced to the level of the vena cava. 4 [place] Flush catheter was brought up and parked at the level of the renal arteries. Vena cavogram was then undertaken. The patient was systemically anticoagulated with 8000 heparin and therapeutic ACT was achieved. We then advanced a Bentson wire all the way up into the inferior vena cava to the atrial junction. We then advanced a pigtail catheter through that from the right atrium to the right ventricle into the pulmonary artery. We then readvanced the Bentson wire through this. In order to confirm appropriate positioning and no trauma to cardiac tissue we advanced an insufflated 8 x 40 balloon. We met no resistance. At this time we did a selective image the right main pulmonary artery and subsequently the left main pulmonary artery. We then advanced the INTRI 24 [place] sheath. Over this we then placed TRIEVER 24 large-bore catheter. This was directed towards the left pulmonary artery. We then successfully aspirated moderate clot burden. Once the syringe was filled we placed this through the flow Saver blood filtering system and returned the blood back to the patient. Several aspirations were performed until we had no thrombus return. Once this was all done completion imaging was then undertaken. No residual thrombus was noted. In a similar fashion we then cannulated the right main pulmonary artery. We were then able to advance the large bore traverse system. Multiple pulls were made and we aspirated minimal clot burden on this side. Completion PA pressures were undertaken. Catheter wire and sheath were removed. Pursestring suture was placed 10 minutes of direct pressure was held. Patient tolerated the procedure well and was returned to recovery with stable vitals. Interpretation of films: 1. Ultrasound was used to evaluate access site of the femoral vein. The femoral vein was noted to be patent with no thrombus. Ultrasound was used for visualization of needle entry. Image was saved to PACS 2. Vena cavogram demonstrated normal caliber vena cava with no evidence of thrombus. 3. Pulmonary artery imaging demonstrated - mild clot on the left side minimal clot on the right side 4. Completion imaging demonstrated resolution of clot Conclusion: 1. Successful pulmonary embolectomy 2. Anticoagulation status: Continue heparin drip. Can restart formal oral anticoagulation tomorrow This note is constructed using voice recognition software. While every effort has been made to ensure accuracy, salesperson pets and pet supplies errors may have been included. Thank you for allowing me to participate in the care of your patient. Yours sincerely, Gal York MD, FACS, R.P.V.I.
[2024-11-11 15:13] LABS: PTT Heparin Drip > 200.0 SEC (53-77.9)
--- NOTE | 2024-11-11 15:22 | MHC.CM.PN ---
Pt having surgical procedure today, CM to complete assessment on 11/12/24
[2024-11-11] MEDS: Morphine Sulfate 4 MG/ML CARTRIDGE IVPUSH (15:37)
[2024-11-11 17:25] LABS: PTT Heparin Drip 93.4 SEC (53-77.9)
[2024-11-11 18:48] LABS: PTT Heparin Drip 44.9 SEC (53-77.9)
[2024-11-11] MEDS: Heparin Sodium,Porcine/1/2NS 25,000 UNIT/250 ML IV.SOLN 5.9 UNIT IVCONT (19:25)
[2024-11-11] MEDS: Docusate Sodium 100 MG CAPSULE PO (21:48)
[2024-11-11] MEDS: Lactulose 20 GM/30 ML SOLUTION PO (21:48)
[2024-11-11] MEDS: Amitriptyline HCl 10 MG TABLET PO (21:48)
[2024-11-12] VITALS (10 sets, daily range): BP systolic 100–132; BP diastolic 60–75; PULSE 85–105; RESP 16–18; TEMP 36–36.6; O2SAT 84–98
[2024-11-12 01:38] LABS: PTT Heparin Drip 36.7 SEC (53-77.9)
[2024-11-12] MEDS: Heparin Sodium,Porcine 5,000 UNIT/ML VIAL 5900 UNIT IVPUSH (02:10)
[2024-11-12] MEDS: Omeprazole 20 MG CAPSULE.DR PO (06:15)
[2024-11-12] MEDS: Tiotropium Bromide 2.5 mcg 1 PUFF/2.5 MCG MIST.INHAL 2 PUFF INHALE (07:59)
[2024-11-12] MEDS: Aspirin Enteric Coated 81 MG TABLET.DR PO (08:34)
[2024-11-12] MEDS: Furosemide 20 MG TABLET PO (08:34)
[2024-11-12] MEDS: Famotidine 20 MG TABLET PO (08:34)
[2024-11-12] MEDS: 0.9 % Sodium Chloride Flush 3 ML SYRINGE IVFLUSH ×3 (08:37→16:30)
[2024-11-12] MEDS: carvediloL 6.25 MG TABLET PO ×2 (08:37→20:38)
[2024-11-12] MEDS: Ferrous Sulfate 324 MG TABLET.DR PO (08:37)
[2024-11-12] MEDS: Buprenorphine/Naloxone 8/2 mg FILM 1 FILM SUBLINGUAL ×3 (08:37→20:38)
[2024-11-12] MEDS: amLODIPine Besylate 5 MG TABLET PO (08:37)
[2024-11-12] MEDS: Apixaban 5 MG TABLET 10 MG PO ×2 (08:37→20:38)
[2024-11-12] MEDS: Atorvastatin Calcium 40 MG TABLET PO (08:37)
--- NOTE | 2024-11-12 08:47 | HO.VASCPN ---
Subjective Subjective Date of Service: 11/12/24 Interval history: Aristides is doing well this morning. He states he is eating, drinking, and sleeping well. He denies shortness of breath, diff breathing, and CP. He states he feels much better since the procedure yesterday. He has no new concerns this morning. Physical Exam Vital Signs: Vital Signs: Last Vital Signs Temp 96.8 F 11/12/24 07:12 Pulse 85 11/12/24 08:03 Resp 16 11/12/24 08:03 BP 132/74 11/12/24 08:34 Pulse Ox 94 11/12/24 07:12 O2 Del Method Nasal Cannula 11/12/24 07:12 O2 Flow Rate 1 11/12/24 07:12 BMI result Body Mass Index 24.4 Const: General: healthy appearing and no acute distress Orientation/consciousness: patient oriented x3 HEENT: Head: Yes normal to inspection Ears: hearing grossly normal bilaterally Mouth: Normal oral and palatal mucosa present Resp: Effort & Inspection: normal respiratory effort and able to speak in complete sentences Auscultation: clear to auscultation bilaterally Cardio: Jugular venous distension: no JVD Rate: regular rate Rhythm: regular rhythm Heart sounds: S1 normal heart sound present and S2 normal heart sound present Bruits: no abdominal aortic bruits, no carotid bruits, no femoral bruits and no renal bruits Peripheral pulses: Peripheral pulses 2+ throughout GI: Inspection: Yes normal to inspection Palpation (GI): No Abdominal aortic bruit present : Other: Right groin: C/D/I. Suture in place. No bleeding or drainage noted on dressing. Dressing removed. Skin: General skin exam: no rashes or lesions noted Wounds: no wounds Hair: normal Neuro: General: patient oriented x3 Cranial nerves: Yes CN's II-XII intact bilaterally and Yes Normal hearing present Cognition (Neuro): normal cognition Gait exam (Neuro): Normal gait present Motor exam (neuro): 5/5 motor strength present throughout Sensory Exam: No Sensory deficit (Neuro) Extrem: General: Yes normal to inspection, Yes full ROM, Yes capillary refill normal and Yes normal gait Progress Note: A&P Assessment and plan (1) Bilateral pulmonary embolism: Status: Acute Assessment and Plan: Aristides is s/p embelectomy yesterday with Dr York due to bilateral pulmonary emboli. He has been doing much better since. He denies shortness of breath, diff breathing, and CP. He no longer requires any O2 assistance. We recommend discontinuing the IV Heparin and transistioning him to oral AC. We will have him follow up with us in 2w outpatient for follow up and suture removal. We will continue to monitor. If there are any questions or concerns, please do not hesitate to reach out to us. Time Spent With Patient Time: Total time managing care of this patient today ____ minutes. Procedures Date of Service Date of Service: 11/12/24 Quality Stroke Does the patient have a stroke diagnosis?: No VTE Prior VTE?: Yes VTE Risk Level:: Medical - moderate - high VTE Device Contraindication: Treatment Not Indicated VTE Drug Contraindication: N/A - Med Ordered
[2024-11-12 08:58] LABS: Basophils Absolute Auto 0.1 X10*3/uL (0.0-0.2); Basophils Percent Auto 0.4 % (0-2); Eosinophils Absolute Auto 0.1 X10*3/uL (0.0-0.4); Eosinophils Percent Auto 0.4 % (0-4); Hematocrit 34.3 % (42.0-52.0); Hemoglobin 12.1 g/dl (14.0-18.0); Imm Gran Abs Auto 0.09 X10*3/uL (0.00-0.03); Imm Gran Pct Auto 0.7 % (0.0-0.4); Lymphocytes Absolute Auto 1.5 X10*3/uL (1.2-4.9); Lymphocytes Percent Auto 11.1 % (20-40); MANUAL DIFF FLAG SCAN; Mean Corpuscular HGB Conc 35.3 g/dl (31.0-36.0); Mean Corpuscular Hemoglobin 29.6 pg (27.0-33.0); Mean Corpuscular Volume 83.9 fL (80.0-98.0); Mean Platelet Volume 9.8 fL (9.4-12.4); Monocytes Absolute Auto 1.6 X10*3/uL (0.1-1.2); Monocytes Percent Auto 11.5 % (2-11); Neutrophils Absolute Auto 10.4 x10*3/uL (2.0-8.3); Neutrophils Percent Auto 75.9 % (45-73); Platelet Count 248 X10*3/uL (160-400); Red Blood Count 4.09 X10*6/uL (4.60-5.80); Red Cell Distribution Width 13.2 % (11.0-16.0); SCAN SMEAR FLAG 1; White Blood Count 13.7 X10*3/uL (4.8-10.8)
[2024-11-12 09:13] LABS: Anion Gap 13 (12-20); Blood Urea Nitrogen 19 mg/dL (9-16); Calcium 8.5 mg/dL (8.4-10.2); Carbon Dioxide 27 mmol/L (22-29); Chloride 102 mmol/L (96-108); Creatinine Clr Calc Pharmacy 67.5; Estimated Glomerular Filt Rate > 60; Glucose Random 104 mg/dL (60-115); Potassium 3.7 mmol/L (3.3-5.1); Sodium 138 mmol/L (135-145)
[2024-11-12 09:16] LABS: SLIDE REVIEW VERIFIED
[2024-11-12 09:23] LABS: ACT 189 Celite s (79-173)
[2024-11-12 09:23] LABS: ACT 120 Celite s (79-173)
--- NOTE | 2024-11-12 09:29 | MHC.CM.PN ---
Addendum entered by Nany Perez 11/12/24 09:50: CM spoke with pt.'s dtr. to request a copy of pt.'s ID, she will fax it here today. She asked about pt. getting on Medicaid, referral to be submitted to financial counselors, and pt. is on a waiting list for a PCP at [facility], dtr. requested our assistance with pt. getting PCP thru [facility] [place], CM will follow up. Original Note: IMM11/12/24, Pt. lives with his dtr, she assists him with ADL's, he does not have outside home health services. At this time he does not have a PCP, he said his dtr is working on setting him up with one. He does not use DME. Dtr to transport home at [place]. DCP: home, self care, CM to follow for DC needs.
[2024-11-12] MEDS: Milk of Magnesia 30 ML ORAL.SUSP PO (11:55)
--- NOTE | 2024-11-12 13:46 | P.PNIM_ITS ---
Subjective Subjective Date of Service: 11/12/24 Interval History: f/u on acute art pulmonary embolism associated with chest pain and hypoxia He had embolectomy yesterday with retrieval of multiple clots has no chest pain or shortness of breath but is on O2 at 1L Physical Exam 2 Vital Signs: Vital Signs: Last Vital Signs Temp 96.9 F 11/12/24 11:09 Pulse 88 11/12/24 11:09 Resp 18 11/12/24 11:09 BP 115/74 11/12/24 11:09 Pulse Ox 96 11/12/24 11:09 O2 Del Method Nasal Cannula 11/12/24 11:09 O2 Flow Rate 1 11/12/24 11:09 BMI result Body Mass Index 24.4 Const: Other: General: AO X 3, no acute distress Resp: CTA bilateral CVS: S1,S2,RRR GI: +BS, NT, no distention Skin: No rash Neuro: motor grossly intact Psych: appropriate affect Objective Data Active Medications Acetaminophen (Acetaminophen 325 Mg Tablet) 650 mg PO Q6H PRN PRN Reason: Pain, Mild 1-3,fever,headache Amitriptyline HCl (Amitriptyline Hcl 10 Mg Tablet) 10 mg PO BEDTIME [facility] Last Admin: 11/11/24 21:48 Dose: 10 mg Documented By: KARLA Amlodipine Besylate (Amlodipine Besylate 5 Mg Tablet) 5 mg PO DAILY [facility]; Protocol Last Admin: 11/12/24 08:37 Dose: 5 mg Documented By: MARIYA Apixaban (Apixaban 5 Mg Tablet) 10 mg PO BID [facility] Last Admin: 11/12/24 08:37 Dose: 10 mg Documented By: MARIYA Aspirin (Aspirin Enteric Coated 81 Mg Tablet.Dr) 81 mg PO DAILY [facility] Last Admin: 11/12/24 08:34 Dose: 81 mg Documented By: MARIYA Atorvastatin Calcium (Atorvastatin Calcium 40 Mg Tablet) 40 mg PO DAILY [facility] Last Admin: 11/12/24 08:37 Dose: 40 mg Documented By: MARIYA Buprenorphine/Naloxone (Buprenorphine/Naloxone 8/2 Mg Film) 1 film SUBLINGUAL TID [facility] Last Admin: 11/12/24 08:37 Dose: 1 film Documented By: MARIYA Calcium Carbonate (Calcium Carbonate 750 Mg Tab.Chew) 750 mg PO Q4H PRN PRN Reason: Heartburn Carvedilol (Carvedilol 6.25 Mg Tablet) 6.25 mg PO BID [facility]; Protocol Last Admin: 11/12/24 08:37 Dose: 6.25 mg Documented By: MARIYA Docusate Sodium (Docusate Sodium 100 Mg Capsule) 100 mg PO BEDTIME [facility] Last Admin: 11/11/24 21:48 Dose: 100 mg Documented By: KARLA Famotidine (Famotidine 20 Mg Tablet) 20 mg PO DAILY [facility] Last Admin: 11/12/24 08:34 Dose: 20 mg Documented By: MARIYA Ferrous Sulfate (Ferrous Sulfate 324 Mg Tablet.) 324 mg PO DAILY [facility] Last Admin: 11/12/24 08:37 Dose: 324 mg Documented By: MARIYA Furosemide (Furosemide 20 Mg Tablet) 20 mg PO DAILY [facility]; Protocol Last Admin: 11/12/24 08:34 Dose: 20 mg Documented By: MARIYA Hydrochlorothiazide (Hydrochlorothiazide 25 Mg Tablet) 25 mg PO Q48H [facility]; Protocol Last Admin: 11/10/24 17:38 Dose: 25 mg Documented By: PALOMO Magnesium Hydroxide (Milk Of Magnesia 30 Ml Oral.Susp) 30 ml PO DAILY PRN PRN Reason: Constipation Last Admin: 11/12/24 11:55 Dose: 30 ml Documented By: CHUCHO Melatonin (Melatonin 3 Mg Tablet) 6 mg PO BEDTIME PRN PRN Reason: Insomnia Morphine Sulfate (Morphine Sulfate 4 Mg/Ml Cartridge) 2 mg IVPUSH Q4H PRN; Protocol PRN Reason: Pain, Severe (Pain Scale 7-10) Morphine Sulfate (Morphine Sulfate 4 Mg/Ml Cartridge) 4 mg IVPUSH Q2H PRN; Protocol PRN Reason: Pain, Severe (Pain Scale 7-10) Last Admin: 11/11/24 15:37 Dose: 4 mg Documented By: SUZETTE Omeprazole (Omeprazole 20 Mg Capsule.) 20 mg PO DAILY@0630 [facility] Last Admin: 11/12/24 06:15 Dose: 20 mg Documented By: KARLA Ondansetron HCl (Ondansetron Hcl 4 Mg/2 Ml Vial) 4 mg IVPUSH Q8H PRN PRN Reason: Nausea and Vomiting Oxycodone HCl (Oxycodone Hcl Immed Release 5 Mg Tablet) 5 mg PO Q6H PRN PRN Reason: Pain, Moderate(Pain Scale 4-6) Sodium Chloride (0.9 % Sodium Chloride Flush 3 Ml Syringe) 3 ml IVFLUSH QSHIFT [facility] Last Admin: 11/12/24 08:37 Dose: 3 ml Documented By: MARIYA Tamsulosin HCl (Tamsulosin Hcl 0.4 Mg Capsule) 0.4 mg PO BEDTIME [facility] Last Admin: 11/11/24 21:20 Dose: Not Given Documented By: KARLA Non-Admin Reason: bp 102/[address] Sol Tiotropium Joppa (Tiotropium [place] 2.5 Mcg 1 Puff/2.5 Mcg Mist.Inhal) 2 puff INHALE RDAILY [facility] Last Admin: 11/12/24 07:59 Dose: 2 puff Documented By: NAGI Labs 11/12/24 08:20 11/12/24 08:20 Labs: Laboratory Results - last 24 hr 11/11/24 11/11/24 11/11/24 11:42 12:08 14:12 MCV MCH MCHC RDW Plt Count MPV Immature Gran % (Auto) Neut % (Auto) Lymph % (Auto) [place] % (Auto) Eos % (Auto) Baso % (Auto) Lymph # (Auto) [place] # (Auto) Eos # (Auto) Baso # (Auto) Abs Immat Gran (auto) Absolute Neuts (auto) Absolute Nucleated RBC Nucleated RBC % (auto) Smear Tech's Comments aPTT Heparin Protocol > 200.0 H* D Activated Clotting Time 120 189 H Anion Gap Estim Creat Clear Calc Estimated GFR Random Glucose Calcium 11/11/24 11/11/24 11/12/24 16:43 18:26 01:15 MCV MCH MCHC RDW Plt Count MPV Immature Gran % (Auto) Neut % (Auto) Lymph % (Auto) [place] % (Auto) Eos % (Auto) Baso % (Auto) Lymph # (Auto) [place] # (Auto) Eos # (Auto) Baso # (Auto) Abs Immat Gran (auto) Absolute Neuts (auto) Absolute Nucleated RBC Nucleated RBC % (auto) Smear Tech's Comments aPTT Heparin Protocol 93.4 H D 44.9 L D 36.7 L Activated Clotting Time Anion Gap Estim Creat Clear Calc Estimated GFR Random Glucose Calcium 11/12/24 08:20 MCV 83.9 MCH 29.6 MCHC 35.3 RDW 13.2 Plt Count 248 MPV 9.8 Immature Gran % (Auto) 0.7 H Neut % (Auto) 75.9 H Lymph % (Auto) 11.1 L [place] % (Auto) 11.5 H Eos % (Auto) 0.4 Baso % (Auto) 0.4 Lymph # (Auto) 1.5 [place] # (Auto) 1.6 H Eos # (Auto) 0.1 Baso # (Auto) 0.1 Abs Immat Gran (auto) 0.09 H Absolute Neuts (auto) 10.4 H Absolute Nucleated RBC 0.000 Nucleated RBC % (auto) 0.0 Smear Tech's Comments VERIFIED aPTT Heparin Protocol Activated Clotting Time Anion Gap 13 Estim Creat Clear Calc 67.5 Estimated GFR > 60 Random Glucose 104 Calcium 8.5 Microbiology Microbiology Results: Microbiology 11/10/24 11:41 Blood Culture - Preliminary Blood - Venous No growth after 24 hours. 11/10/24 11:41 Blood Culture - Preliminary Blood - Venous No growth after 24 hours. Assessment and Plan (1) Bilateral pulmonary embolism: Status: Acute Plan Patient is a 74-year-old male with a past medical history significant for COPD/asthma overlap, history DVT no longer on Eliquis, HTN, HLD, substance use disorder on Suboxone, GERD, and BPH, who presented to the ED due to pleuritic chest pain for the past 2 days in the left lower chest with a cough. Acute hypoxic respiratory failure secondary to bilateral pulmonary emboli with bilateral pleural effusions, he has history of VTE but no longer on anticoagulation continue IV heparin, transitioned to eliquis this morning s/p embolectomy by vascular sugery 11/11 with large amount of clots retreieved secondary work up can be pursuit on outpatient basis will get an echocardiogram O2 as needed COPD/asthma overlap without acute exacerbation no wheezing on exam continue home inhalers could be contributing to low O2 sat HTN,controlled continue amlodipine, carvedilol, hydrochlorothiazide HLD continue statin GERD continue PPI and famotidine BPH continue tamsulosin Full code VTE prophylaxis: Heparin Need for inpatient: Eliquis Quality Stroke Does the patient have a stroke diagnosis?: No VTE Prior VTE?: Yes VTE Risk Level:: Medical - moderate - high VTE Device Contraindication: Treatment Not Indicated VTE Drug Contraindication: N/A - Med Ordered
[2024-11-12] MEDS: hydroCHLOROthiazide 25 MG TABLET PO (16:30)
[2024-11-12] MEDS: Tamsulosin HCL 0.4 MG CAPSULE PO (20:37)
[2024-11-12] MEDS: Docusate Sodium 100 MG CAPSULE PO (20:38)
[2024-11-12] MEDS: Amitriptyline HCl 10 MG TABLET PO (20:38)
[2024-11-12] MEDS: Acetaminophen 325 MG TABLET 650 MG PO (20:43)
[2024-11-13] VITALS: BP 93/61; PULSE 77; RESP 16; TEMP 36.8; O2SAT 97
[2024-11-13 03:57] VITALS: BP 108/59; PULSE 86; RESP 16; TEMP 36.8; O2SAT 99
[2024-11-13] MEDS: Omeprazole 20 MG CAPSULE.DR PO (06:10)
--- NOTE | 2024-11-13 07:00 | CA_ITS ---
Transthoracic Echocardiogram Patient (Last, First, Middle): Aristides Yin, Gender: Male Date of : 1950 Age: 74 Procedure Date: 11/13/2024 Procedure Type: Transthoracic Echocardiogram Location: [facility] [place] Height: 175.26 cm Weight: 74.84 kg BSA: 1.90 m2 Heart Rate: bpm BP: 107 / 75 mmHg Plate Preparer: Referring MD: Cedric Streeter MD Symptoms: pulmonary embolism Study Quality: Adequate ECG Rhythm: Sinus Conclusions: - The left ventricular systolic function is normal. The calculated ejection fraction is 59% by biplane method. - There is mild tricuspid valve regurgitation. - There is a small loculated pericardial effusion overlying the right ventricle. Findings Left Ventricle Normal left ventricular cavity size. There is mildly increased left ventricular wall thickness. The left ventricular systolic function is normal. The calculated ejection fraction is 59% by biplane method. There is no evidence of regional wall motion abnormalities. Diastolic function is normal for age. Right Ventricle Normal right ventricular cavity size and systolic function. Evidence of right ventricular hypertrophy. Atria Both atria are normal in size. Aortic Valve There is a normal trileaflet aortic valve. There is no aortic valve stenosis. There is no aortic valve regurgitation. Mitral Valve The mitral valve appears normal. There is no mitral valve regurgitation. There is no mitral valve stenosis. Pulmonic Valve The pulmonic valve is likely normal. Tricuspid Valve There is mild tricuspid valve regurgitation. There is no evidence of pulmonary hypertension. Great Vessels The asc aorta is normal in size. Venous The inferior vena cava is normal in size and collapses greater than 50% with inspiration. Pericardium/Pleural There is a small loculated pericardial effusion overlying the right ventricle. Prior Study Comparison No prior study available for comparison. Measurements 2D Linear Measurements IVSd: 1.23 0.6-0.9/0.6-1.0 cm LVIDd: 3.53 3.9-5.3/4.2-5.9 cm LVIDd Index: 1.86 2.4-3.2/2.2-3.1 cm/m2 LVIDs: 2.44 2.0-3.6 cm LVPWd: 1.27 0.7-1.1 cm Ao Root: 3.50 2.1-3.5 cm LA Diam: 3.60 2.7-3.8/3.0-4.0 cm LAIDs Index: 1.89 1.5-2.3 cm/m2 LV Mass: 182.28 67-162/88-224 g LV Mass Index: 95.94 43-95/49-115 g/m2 LVOT Diam: 2.20 3.0+(-)1.3 cm 2D Systolic Function EF 4C: 62.40 >55% EF 2C: 57.00 >55% EF BiP: 59.40 >55% Mitral Valve MV Pk E: 0.63 MV PK A: 1.03 MV Decel Time: 171.00 E/A: 0.60 E'Lateral: 8.59 E'Medial: 6.20 E/E' Med: 10.10 E/E' Lat: 7.30 PHT: 50.00 MVA PHT: 4.40 Decel [place]: 3.65 Aortic Valve AoV Pk Philip: 1.20 AoV Mn Philip: 0.83 AoV VTI: 0.27 AoV Pk Grad: 6.00 Aov Mn Grad: 3.00 [place] Cont.VTI: 3.03 LVOT LVOT Pk Philip: 0.98 LVOT Mn Philip: 0.68 LVOT VTI: 0.21 LVOT Pk Grad: 4.00 LVOT Mn Grad: 2.00 LVOT Diam: 2.20 LVOT Area: 3.80 Diastolic Function MV Pk E: 0.63 MV Pk A: 1.03 E/A: 0.60 E'Medial: 6.20 E/E' Med: 10.10 E' Laterial: 8.59 E/E' Lat: 7.30 Right Ventricle TAPSE (mm): 33.00 TVS' Philip: 11.00 Tricuspid Valve TR Pk Philip: 2.45 TR Pk Grad: 24.00 RA Press: 3.00 RVSP: 27.00 Great Vessels Aorta Ao Root-2D: 3.50 2.0-3.7 cm Ao Asc: 3.50 2.1-3.4 cm Pulmonary Valve PV Pk Philip: 1.05 Peak PV Grad: 4.00 Updated in Other Vendor System with Status of Final Serge Jesus MD electronically signed on 11/13/2024 11:49:12 AM with status of Final
[2024-11-13 07:09] LABS: MANUAL DIFF FLAG NO
[2024-11-13 07:11] LABS: Basophils Percent Auto 0.4 % (0-2); Eosinophils Absolute Auto 0.2 X10*3/uL (0.0-0.4); Eosinophils Percent Auto 1.9 % (0-4); Hematocrit 32.9 % (42.0-52.0); Hemoglobin 11.2 g/dl (14.0-18.0); Imm Gran Abs Auto 0.07 X10*3/uL (0.00-0.03); Imm Gran Pct Auto 0.8 % (0.0-0.4); Lymphocytes Absolute Auto 1.3 X10*3/uL (1.2-4.9); Lymphocytes Percent Auto 14.8 % (20-40); Mean Corpuscular Hemoglobin 28.9 pg (27.0-33.0); Mean Corpuscular Volume 84.8 fL (80.0-98.0); Mean Platelet Volume 9.1 fL (9.4-12.4); Monocytes Absolute Auto 1.1 X10*3/uL (0.1-1.2); Monocytes Percent Auto 12.4 % (2-11); Neutrophils Absolute Auto 6.3 x10*3/uL (2.0-8.3); Neutrophils Percent Auto 69.7 % (45-73); Platelet Count 238 X10*3/uL (160-400); Red Blood Count 3.88 X10*6/uL (4.60-5.80); White Blood Count 9.1 X10*3/uL (4.8-10.8)
[2024-11-13 07:25] LABS: Anion Gap 13 (12-20); Blood Urea Nitrogen 14 mg/dL (9-16); Calcium 9.2 mg/dL (8.4-10.2); Carbon Dioxide 33 mmol/L (22-29); Chloride 98 mmol/L (96-108); Estimated Glomerular Filt Rate > 60; Glucose Random 117 mg/dL (60-115); Potassium 4.6 mmol/L (3.3-5.1); Sodium 139 mmol/L (135-145)
[2024-11-13 07:39] VITALS: BP 115/73; PULSE 79; RESP 20; TEMP 36.5; O2SAT 94
[2024-11-13] MEDS: Tiotropium Bromide 2.5 mcg 1 PUFF/2.5 MCG MIST.INHAL 2 PUFF INHALE (08:26)
[2024-11-13 08:28] VITALS: PULSE 86; RESP 17; O2SAT 89
[2024-11-13] MEDS: Aspirin Enteric Coated 81 MG TABLET.DR PO (09:18)
[2024-11-13] MEDS: Apixaban 5 MG TABLET 10 MG PO (09:18)
[2024-11-13] MEDS: 0.9 % Sodium Chloride Flush 3 ML SYRINGE IVFLUSH (09:18)
[2024-11-13] MEDS: Furosemide 20 MG TABLET PO (09:18)
[2024-11-13] MEDS: carvediloL 6.25 MG TABLET PO (09:19)
[2024-11-13] MEDS: Buprenorphine/Naloxone 8/2 mg FILM 1 FILM SUBLINGUAL (09:19)
[2024-11-13] MEDS: Atorvastatin Calcium 40 MG TABLET PO (09:19)
[2024-11-13] MEDS: Ferrous Sulfate 324 MG TABLET.DR PO (09:19)
[2024-11-13] MEDS: amLODIPine Besylate 5 MG TABLET PO (09:19)
[2024-11-13] MEDS: Famotidine 20 MG TABLET PO (09:19)
--- NOTE | 2024-11-13 11:23 | PM.DS ---
DS: Providers Provider Date of Service: 11/13/24 Date of admission: 11/10/24 14:03 Date of discharge: 11/13/24 Primary care physician: None Physician Consults: 11/10/24 16:42 Consult to Vascular Surgery Routine Consulting Provider: [facility] Vascular Services Reason for consultation: bilateral PEs Has provider been notified: No DS: Diagnosis Discharge Diagnosis (1) Bilateral pulmonary embolism: Status: Acute DS: Summary Hospital Course Hospital Course: admission hpi Chief Complaint: chest pain Patient is a 74-year-old male with a past medical history significant for COPD/asthma overlap, history DVT no longer on Eliquis, HTN, HLD, substance use disorder on Suboxone, GERD, and BPH, who presented to the ED due to pleuritic chest pain for the past 2 days in the left lower chest with a cough. He reports the cough is dry denies any hemoptysis. He was saturating at 92% on room air but desaturated down to 83% requiring oxygen supplementation. Patient reports he has been using his home inhalers but they have not been helpful for his cough, which have not been helpful. He is unsure why he had a DVT in the past he reports that he was previously in [place] and moved here at the end of September as he was not getting appropriate care and was on the wait list to see a specialist there. The daughter reported that when the patient came to [facility] from [place] there was no anticoagulant included in his medications. hospital course: Patient is a 74-year-old male with a past medical history significant for COPD/asthma overlap, history of DVT no longer on Eliquis, HTN, HLD, substance use disorder on Suboxone, GERD, and BPH, who presented to the ED due to pleuritic chest pain for the past 2 days in the left lower chest with a cough, he was found to be hypoxic Acute hypoxic respiratory failure secondary to bilateral pulmonary emboli with bilateral pleural effusions, he has history of VTE but was no longer on anticoagulation, reason unclear. CTA of the chest revealed bilateral pulmonary embolism with bilateral pleural effusion. He was treated with heparin and consultation requested with vascular surgery. The following day on 11/11, he had embolectomy by vascular sugery with large amount of clots retrieved IV heparin was transitioned to Eliquis on 11/12 morning. Patient continue to be hypoxic and requiring at least 1 L of oxygen to maintain normal oxygen saturation, he has qualified for home O2 and will be send home with O2 and visiting nurse services, he is hemodynamically stable. COPD/asthma overlap without acute exacerbation no wheezing on exam continue home inhalers could be contributing to low O2 sat oxygen as aboe HTN,controlled continue amlodipine, carvedilol, hydrochlorothiazide HLD continue statin GERD continue PPI and famotidine BPH continue tamsulosin Dispo: home with VNA Time Attestation Discharge Coordination Time (in mins): 45 Quality: Safe Use of Opioids Does Pt have an Active Cancer Diagnosis on the Problem List?: No Quality: Stroke Does the patient have a stroke diagnosis?: No Physical Exam Vital Signs: Vital Signs: Last Vital Signs Temp 97.7 F 11/13/24 07:39 Pulse 86 11/13/24 08:28 Resp 17 11/13/24 08:28 BP 115/73 11/13/24 07:39 Pulse Ox 94 11/13/24 07:39 O2 Del Method Nasal Cannula 11/13/24 07:39 O2 Flow Rate 1 11/13/24 07:39 BMI result Body Mass Index 24.4 DS: Data Data Completed and Pending Labs on day of discharge: Laboratory Results - last 24 hr 11/13/24 06:56 WBC 9.1 RBC 3.88 L Hgb 11.2 L Hct 32.9 L MCV 84.8 MCH 28.9 MCHC 34.0 RDW 13.0 Plt Count 238 MPV 9.1 L Immature Gran % (Auto) 0.8 H Neut % (Auto) 69.7 Lymph % (Auto) 14.8 L Randall % (Auto) 12.4 H Eos % (Auto) 1.9 Baso % (Auto) 0.4 Lymph # (Auto) 1.3 Randall # (Auto) 1.1 Eos # (Auto) 0.2 Baso # (Auto) 0.0 Abs Immat Gran (auto) 0.07 H Absolute Neuts (auto) 6.3 Absolute Nucleated RBC 0.000 Nucleated RBC % (auto) 0.0 Sodium 139 Potassium 4.6 D Chloride 98 Carbon Dioxide 33 H Anion Gap 13 BUN 14 Creatinine 0.86 Estim Creat Clear Calc 73.0 Estimated GFR > 60 Random Glucose 117 H Calcium 9.2 D Preliminary micro results at discharge 11/10/24 11:41 Blood Culture - Preliminary Blood - Venous No growth after 48 hours. 11/10/24 11:41 Blood Culture - Preliminary Blood - Venous No growth after 48 hours. Discharge Plan Discharge Anticipated Discharge Date/Time: 11/13/24 11:28 Patient Disposition: Home Health Service Discharge Diagnosis: Acute hypoxic respiratory failure due to pulmonary embolism Referrals: Physician,None [Primary Care Provider, Medical] - 1 Week Discharge Medications: New Lori DVT-PE Treat 30D Start 5 mg (74 tabs) tablets,dose pack See Rx Instructions .ROUTE .COMPLEX Qty: 250 0RF Rx Instructions: Take 2 tabs (10 mg) twice daily for 6 days (Until November 19), and starting November 20, take 1 tab (5 mg) daily Continued pantoprazole 40 mg tablet,delayed release (DR/EC) 1 tab PO DAILY carvedilol 6.25 mg tablet 6.25 mg PO BID amlodipine 5 mg tablet 5 mg PO DAILY famotidine 20 mg tablet 20 mg PO DAILY tamsulosin 0.4 mg capsule 0.4 mg PO BEDTIME amitriptyline 10 mg tablet 10 mg PO BEDTIME ferrous sulfate [FeroSul] 325 mg (65 mg iron) tablet 325 mg PO DAILY hydrochlorothiazide 25 mg tablet 25 mg PO Q48H furosemide 20 mg tablet 20 mg PO DAILY albuterol sulfate 90 mcg/actuation HFA aerosol inhaler 1 puff inhalation Q4-6H tiotropium bromide [Spiriva with HandiHaler] 18 mcg capsule, w/inhalation device 1 cap inhalation DAILY buprenorphine-naloxone 8-2 mg film 1 film sublingual TID aspirin 81 mg Tablet 81 mg PO DAILY atorvastatin 40 mg tablet 40 mg PO DAILY (DME) blood pressure test kit-large Kit See Rx Instructions .ROUTE .MEDSUPPLY Qty: 1 Rx Instructions: As directed docusate sodium 100 mg capsule 100 mg PO BEDTIME Qty: 30 3RF Discharge Orders: Discharge Order (Routine); Ordered 11/13/24 Ordered By: Cedric Streeter Diet: Advance to usual diet Activity on Discharge: As tolerated Stand Alone Forms: Patient Portal Discharge page Print Language: Slovak Care Plan Goals: recovery from acute hypoxic respiratory failure due to pulmonary embolism Health Concerns: pulmonary embolism pleural effusion acute hypoxic respiratory failure Use Oxygen as directed Plan of Treatment: See above Assessment: See above
[2024-11-13 12:00] VITALS: BP 104/67; PULSE 80; RESP 20; TEMP 36.3; O2SAT 94
--- NOTE | 2024-11-13 12:05 | W.MHC.F2F ---
Service Date Service Date: 11/13/24 Encounter Date of encounter: 11/13/24 Reasons for Services Signs and symptoms assessed: shortness due to pulmonary embolism Reason for nursing home: medication management, medication treatment and teach disease management Homebound: Leaving the home is medically contraindicated at this time without the asist of a device and/or another person due th the listed conditions above and below. Reason homebound: shortness of breath with minimal effort Homebound supporting statement: Home bound due to shortness of breath at reast and exertion due to bilaterl pulmonary embolism needing blood thiners, home oxygen and therefore needs the assitance of another person Certification: Based on the above findings, I certify that this patient is confined to the home and needs intermittent nursing home care, physical therapy and/or speech therapy, or continues to need occupational therapy. The patient is under my care, and I have initiated the establishment of the plan of care. The patient will be followed by a physician who will periodically review the plan of care. Time Spent With Patient Time: Total time managing care of this patient today ____ minutes.
--- NOTE | 2024-11-13 12:41 | MHC.CM.PN ---
Pt has been medically cleared to [place], he will go home via family, plan is self care.
== END 2024-11-13 13:30 | disposition home health service (06) | DRG 163 ==
LOC: HO.ED 14:00 → HO.EDOVER 14:04 → HO.IMC 19:16
PROVIDERS: Emergency Medicine; Physician Assistant Medical; Student in an Organized Health Care Education/Training Program; Surgery Vascular Surgery; Admitting Provider Physician Assistant; Emergency Provider Emergency Medicine; Visit Provider Internal Medicine
PROC: 02CR3ZZ Extirpation of Matter from Left Pulmonary Artery, Percutaneous Approach (ICD-10-PCS; principal; 2024-11-11 10:30)
DX: I26.99 Other pulmonary embolism without acute cor pulmonale (principal); J96.01 Acute respiratory failure with hypoxia; F11.20 Opioid dependence, uncomplicated; J91.8 Pleural effusion in other conditions classified elsewhere; N40.0 Benign prostatic hyperplasia without lower urinary tract symptoms; J44.9 Chronic obstructive pulmonary disease, unspecified; K21.9 Gastro-esophageal reflux disease without esophagitis; I10 Essential (primary) hypertension; E78.5 Hyperlipidemia, unspecified; Z20.822 Contact with and (suspected) exposure to COVID-19; Z86.718 Personal history of other venous thrombosis and embolism; Z87.891 Personal history of nicotine dependence; Z79.899 Other long term (current) drug therapy
CPT/HCPCS: 0241U; 36415; 37184; 71046; 71275; 76937; 80048; 80076; 82803; 83605; 83690; 83735; 83880; 84484; 85025; 85027; 85347; 85379; 85610; 85730; 87040; 93005; 93306; 93970; 94640; 97161; 99152; 99153; 99285; C1725; C1757; C1769; C1887; C1894; J0131; J0696; J1644; J2003; J2250; J2270; J2405; J3010; Q9957; Q9967

== ENCOUNTER → 2024-11-10 10:17 | Outpatient (BNV) | payer MEDICARE, SELFPAY | PROVIDERS: Visit Provider Radiology Diagnostic Radiology | DX: I26.99 Other pulmonary embolism without acute cor pulmonale (principal); J90 Pleural effusion, not elsewhere classified; I31.39 Other pericardial effusion (noninflammatory); I25.10 Atherosclerotic heart disease of native coronary artery without angina pectoris; J43.9 Emphysema, unspecified; I82.812 Embolism and thrombosis of superficial veins of left lower extremity; J44.9 Chronic obstructive pulmonary disease, unspecified | CPT/HCPCS: 71046; 71275; 93970 ==

== ENCOUNTER → 2024-11-10 10:17 | Outpatient (BNV) | payer MEDICARE, SELFPAY | PROVIDERS: Admitting Provider Physician Assistant; Emergency Provider Emergency Medicine; Visit Provider Internal Medicine | DX: R07.1 Chest pain on breathing (principal) | CPT/HCPCS: 93010 ==

== ENCOUNTER 2024-11-10 14:03 | Outpatient (BNV) | payer MEDICARE, SELFPAY | END 2024-11-13 07:00 | PROVIDERS: Admitting Provider Physician Assistant; Emergency Provider Emergency Medicine; Visit Provider Internal Medicine | DX: I31.39 Other pericardial effusion (noninflammatory) (principal); I36.1 Nonrheumatic tricuspid (valve) insufficiency | CPT/HCPCS: 93306 ==

== ENCOUNTER → 2024-11-10 14:03 | Outpatient (BNV) | payer MEDICARE, SELFPAY | PROVIDERS: Admitting Provider Physician Assistant; Emergency Provider Emergency Medicine; Visit Provider Surgery Vascular Surgery | DX: I26.99 Other pulmonary embolism without acute cor pulmonale (principal) | CPT/HCPCS: 99232 ==

== ENCOUNTER → 2024-11-10 14:03 | Outpatient (BNV) | payer MEDICARE, SELFPAY | PROVIDERS: Admitting Provider Physician Assistant; Emergency Provider Emergency Medicine; Visit Provider Physician Assistant | DX: J96.01 Acute respiratory failure with hypoxia (principal); I26.99 Other pulmonary embolism without acute cor pulmonale; J90 Pleural effusion, not elsewhere classified | CPT/HCPCS: 99223; 99232 ==

== ENCOUNTER 2024-11-23 07:44 | Emergency (ER) | payer MEDICARE, SELFPAY ==
--- NOTE | ~2024-11-23 | US_ITS ---
EXAMINATION: US SCROTUM HISTORY: left testicular pain. COMPARISON: EXAMINATION: US SCROTUM HISTORY: left testicular pain. COMPARISON: Comparison is made with the prior examination dated 03/07/2020. FINDINGS: Real-time grayscale ultrasound imaging of the scrotum was performed. Color and spectral Doppler analysis was also performed. RIGHT TESTICLE: The right testis measures 3.4 x 2.2 x 2.1 cm and demonstrates heterogeneous echotexture. No discrete masses are seen. The right testis demonstrates normal arterial and venous color Doppler and spectral waveforms. RIGHT EPIDIDYMIS: Normal in size, shape, and vascularity. LEFT TESTICLE: The left testis measures 3.5 x 2.0 x 2.3 cm and demonstrates normal homogeneous echotexture. No masses are seen. The left testis demonstrates normal arterial and venous color Doppler and spectral waveforms. LEFT EPIDIDYMIS: Normal in size, shape, and vascularity. There is an epididymal head cyst measuring 6 mm in size. VARICOCELE: None. HYDROCELE: There is a large right hydrocele and a small to moderate left hydrocele. OTHER COMMENTS: None. US/US scrotum IMPRESSION: 1. Large right hydrocele and small left hydrocele. 2. Heterogeneous right testicular echotexture without a discrete mass. 3. 6 mm left epididymal head cyst. FINDINGS: Real-time grayscale ultrasound imaging of the scrotum was performed. RIGHT TESTICLE: The right testis measures cm and demonstrates normal homogeneous echotexture. No masses are seen. The right testis demonstrates normal color Doppler flow. RIGHT EPIDIDYMIS: Normal in size, shape, and vascularity. LEFT TESTICLE: The left testis measures cm and demonstrates normal homogeneous echotexture. No masses are seen. The left testis demonstrates normal color Doppler flow. LEFT EPIDIDYMIS: Normal in size, shape, and vascularity. VARICOCELE: None. HYDROCELE: No significant hydrocele is seen. OTHER COMMENTS: None. IMPRESSION: Unremarkable scrotal ultrasound. Electronically signed by: Deniz Arriaga MD 11/23/2024 10:46 AM EDT RP
--- NOTE | ~2024-11-23 | US_ITS ---
EXAMINATION: US TRIPLEX LOWER EXTREMITY, LEFT CLINICAL INFORMATION: History of DVT, pain and swelling. History of PE. COMPARISON: 11/10/2024. TECHNIQUE: Color-flow triplex imaging with spectral analysis and compression Doppler were performed on the left lower extremity. FINDINGS: Respiratory variation, normal compression and augmented flow are noted throughout the left lower extremity. The visualized common femoral vein, superficial femoral vein, profunda femoral vein, popliteal vein and midcalf peroneal venous segments show no evidence of deep venous thrombosis. There is noncompressible thrombus present within the anterior branch of the mid left posterior tibial vein. There is similar superficial thrombophlebitis within the left greater saphenous vein at the proximal thigh level. There is no Marcum's cyst. US/US venous duplex LE LT IMPRESSION: 1. POSITIVE deep venous thrombosis present in the anterior branch of the mid left posterior tibial vein. (Deep calf thrombosis). 2. Superficial thrombophlebitis within the left greater saphenous vein at the proximal thigh level again noted, similar to prior. Electronically signed by: Brian Medina MD 11/23/2024 10:42 AM EDT
--- NOTE | ~2024-11-23 | US_ITS ---
EXAMINATION: US SCROTUM HISTORY: left testicular pain. COMPARISON: EXAMINATION: US SCROTUM HISTORY: left testicular pain. COMPARISON: Comparison is made with the prior examination dated 03/07/2020. FINDINGS: Real-time grayscale ultrasound imaging of the scrotum was performed. Color and spectral Doppler analysis was also performed. RIGHT TESTICLE: The right testis measures 3.4 x 2.2 x 2.1 cm and demonstrates heterogeneous echotexture. No discrete masses are seen. The right testis demonstrates normal arterial and venous color Doppler and spectral waveforms. RIGHT EPIDIDYMIS: Normal in size, shape, and vascularity. LEFT TESTICLE: The left testis measures 3.5 x 2.0 x 2.3 cm and demonstrates normal homogeneous echotexture. No masses are seen. The left testis demonstrates normal arterial and venous color Doppler and spectral waveforms. LEFT EPIDIDYMIS: Normal in size, shape, and vascularity. There is an epididymal head cyst measuring 6 mm in size. VARICOCELE: None. HYDROCELE: There is a large right hydrocele and a small to moderate left hydrocele. OTHER COMMENTS: None. US/US scrotum doppler IMPRESSION: 1. Large right hydrocele and small left hydrocele. 2. Heterogeneous right testicular echotexture without a discrete mass. 3. 6 mm left epididymal head cyst. FINDINGS: Real-time grayscale ultrasound imaging of the scrotum was performed. RIGHT TESTICLE: The right testis measures cm and demonstrates normal homogeneous echotexture. No masses are seen. The right testis demonstrates normal color Doppler flow. RIGHT EPIDIDYMIS: Normal in size, shape, and vascularity. LEFT TESTICLE: The left testis measures cm and demonstrates normal homogeneous echotexture. No masses are seen. The left testis demonstrates normal color Doppler flow. LEFT EPIDIDYMIS: Normal in size, shape, and vascularity. VARICOCELE: None. HYDROCELE: No significant hydrocele is seen. OTHER COMMENTS: None. IMPRESSION: Unremarkable scrotal ultrasound. Electronically signed by: Deniz Arriaga MD 11/23/2024 10:46 AM EDT RP
[2024-11-23 07:52] VITALS: BP 116/72; PULSE 93; RESP 16; TEMP 36.4; O2SAT 95; BMI 24.2
--- NOTE | 2024-11-23 08:20 | PC.NURSE ---
pt is resting comfortably, suture sight has old ecchymossis around but no signs of infection. pt has strong and = peda pulses with no edema or swelling to l;ower ext. awaiting initial md eval.
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
--- OUTSIDE RECORDS SUMMARY | 2024-11-23 08:47 | XMS_ITS | Clinical Summary ---
Author Organization [employer] Address [address] [place] [address] [address] [place] [address] Care Team Providers Care Lighting Technician Name Role Phone Unavailable Primary Care Provider Unavailabl e Encounters Date Type Department Care Team Description 11/02/2024 Telephone [facility] [address] [place] [phone] Harry Cooper MD New PT Appt from [...] 11/08/2021 12:06 AM EDT Plan of Treatment Upcoming Encounters Date Type Department Care Team (Late st Contact Info) Description 11/30/2024 1:30 PM EDT Office Visit [facility] [address] [place] [phone] Carolee Siddiqui, RN [address] [place] [id number] 11/30/2024 2:00 PM EDT Office Visit [facility] [address] [place] [address] Alicia Smith MD [address] [place] [address] Health Maintenance Due Date Last Done Comments Depression Screening 1950 SDOH Screening 1950 Alcohol/Substance Use Screening 1960 Tobacco Screening 1960 Zoster Vaccines (1 of 2) 01/20/1998 DTaP/Tdap/Td Vaccines (2 - Td or Tdap) 10/07/2018 10/07/2008 RSV Patients and Patients Aged 60 years or older (1 - 1-dose 75+ series) 01/20/2023 COVID-19 Vaccine ( season) 2024 12/26/2021, 03/07/2021, 08/10/2020, Additional history exists Influenza Vaccine (#1) 2025 , 03/07/2021, 02/06/2020, Additional history exists Lipid Panel 12/19/2025 12/19/2020 Pneumococcal Vaccine: 50+ Years Completed 02/24/2020, 10/01/2017, 03/11/2015 Hepatitis C Screening Completed 12/19/2020, 019 Colonoscopy Discontinued 03/22/2021 Colorectal Cancer Screening Discontinued [...] Date/Time Associated Diagnosis Comments COLONOSCOPY Routine 03/22/2021 ZZZ HISTORICAL HEPATITIS C AB W/REFL TO HCV RNA, QN, PCR Routine 12/19/2020 10:45 AM EDT LIPID PANEL, STANDARD Routine 12/19/2020 10:45 AM EDT from Last 3 Months or Most Recently Relevant to Health Maintenance Results * Colonoscopy (03/22/2021) Pathologist [facility] Colonoscopy Normal Normal 03/22/2021 Narrative Janis Kebede - 03/22/2021 12:55 PM EDT Recommended 10 year follow up us Historical Provider MD HEALTH MAINTENANCE Final Result * (ABNORMAL) HEPATITIS C AB W/REFL TO HCV RNA, QN, PCR (12/19/2020 10:45 AM EDT) Pathologist [facility] HEPATITIS C ANTIBODY REACTIVE( A) NON-REACT [facility] INDEX 7.29(H) <1.00 [facility] Comment: Based on this result, the sample will be tested for HCV RNA by a Nucleic Acid Amplification Test (NAAT) to determine if the patient has a current active infection. 12/19/2020 10:4 5 AM EDT Kerry [place] HISTORICAL/NON ORDERABLE LABS Final Result [facility] [address] * LIPID PANEL, STANDARD (12/19/2020 10:45 AM EDT) Pathologist [facility] Chol/HDLC Ratio 1.9 <5.0 (calc) [facility] Cholesterol, Total 91 <200 mg/dL [facility] HDL Cholesterol 47 > OR = 40 mg/dL [facility] LDL Cholesterol 35 mg/dL (calc) [facility] Comment: Reference range: <100 Desirable range <100 mg/dL for primary prevention; <70 mg/dL for patients with CHD or diabetic patients with > or = 2 CHD risk factors. LDL-C is now calculated using the Jesús calculation, which is a validated novel method providing better accuracy than the Friedewald equation in the estimation of LDL-C. Dillon PIPER et al. SHEILA. 2013;310(19): 7755-5794 (http://education.[employer]ista.[employer]eric[employer] Management/faq/MWM807) Non-HDL Cholesterol 44 <130 mg/dL (calc) [facility] Comment: For patients with diabetes plus 1 major ASCVD risk factor, treating to a non-HDL-C goal of <100 mg/dL (LDL-C of <70 mg/dL) is considered a therapeutic option. Triglycerides 33 <150 mg/dL [facility] 12/19/2020 10:4 5 AM EDT us Kerry Basurto [facility] BLOOD ORDERABLES Final Res ult [facility] [address] from Last 3 Months or Most Recently Relevant to [place] [id number]
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
[2024-11-23 12:15] LABS: Appearance Urine Clear; Glucose Urine UA Negative (Negative); PH 7.0 (5.0-9.0); Specific Gravity - Urine <= 1.005 (1.005-1.025)
--- NOTE | 2024-11-23 13:04 | PC.NURSE ---
pt was being prepared for discharge- pt family member called to room, pt expectorated a half dollar size bloody clot mixed with phlegm. given pt is on bloos thinners, PA notified and came to bedside. pt sts that this is the first time this has happened. pt denies any other symptoms at this time. vss 102/72 95%RA 95bpm. pt to be observed at this time
[2024-11-23 13:12] VITALS: BP 102/72; PULSE 95; RESP 16; TEMP 36.8; O2SAT 95
[2024-11-23 14:21] VITALS: BP 102/72; PULSE 95; RESP 16; TEMP 36.8; O2SAT 95
== END 2024-11-23 14:22 | disposition home or self-care (01) ==
PROVIDERS: Physician Assistant; Emergency Provider Emergency Medicine
DX: I82.442 Acute embolism and thrombosis of left tibial vein (principal); R04.2 Hemoptysis; R60.0 Localized edema; R10.2 Pelvic and perineal pain; M79.605 Pain in left leg; Z48.02 Encounter for removal of sutures; Z79.01 Long term (current) use of anticoagulants; Z79.899 Other long term (current) drug therapy
CPT/HCPCS: 76870; 81003; 93971; 93975; 99283; 99284

== ENCOUNTER → 2024-11-23 09:37 | Outpatient (BNV) | payer MEDICARE, SELFPAY | PROVIDERS: Emergency Provider Emergency Medicine; Visit Provider Radiology Diagnostic Radiology | DX: N50.812 Left testicular pain (principal); I82.442 Acute embolism and thrombosis of left tibial vein | CPT/HCPCS: 76870; 93971 ==

== ENCOUNTER 2024-12-17 08:39 | Outpatient (REF) | payer MEDICARE, SELFPAY ==
--- OUTSIDE RECORDS SUMMARY | 2024-12-16 14:45 | XMS_ITS | Encounter Summary ---
Author Organization [employer] Address [address] [place] [address] [address] [place] [address] Care Team Providers Care Radio Program Checker Name Role Phone Desmond Golden CNP Primary Care Provider [phone] Reason for Referral * Consultation (Routine) - Pending Review Specialty Diagnoses / Procedures Referred By Fernandez sullivan Referred To Contact Physical Therapy Diagnoses Encounter to establish care Acute hypoxic respiratory failure (CMS/HCC) On home oxygen therapy Desmond Golden CNP [address] [place] [address] Phone: tel: fax: Referral ID Status Reason Start Date Expiration Date Visits Requested Visits Authorized [id number] Pending Review Specialty Services Required 12/16/2024 12/16/2025 1 1 * Consultation (Routine) - Pending Review Specialty Diagnoses / Procedures Referred By Fernandez sullivan Referred To Contact Vascular Surgery Diagnoses Deep vein thrombosis (DVT) of tibial vein of left lower extremity, unspecified chronicity (CMS/HCC) Desmond Golden CNP [address] [place] [address] Phone: tel: fax: Referral ID Status Reason Start Date Expiration Date Visits Requested Visits Authorized [id number] Pending Review Specialty Services Required 12/16/2024 12/16/2025 1 1 * Consultation (Routine) - Pending Review Specialty Diagnoses / Procedures Referred By Fernandez sullivan Referred To Contact Gastroenterology Diagnoses Gastroesophageal reflux disease without esophagitis Desmond Golden CNP [address] [place] [address] Phone: tel: fax: Referral ID Status Reason Start Date Expiration Date Visits Requested Visits Authorized [id number] Pending Review Specialty Services Required 12/16/2024 12/16/2025 1 1 * Consultation (STAT) - Pending Review Specialty Diagnoses / Procedures Referred By Fernandez sullivan Referred To Contact Pulmonary Disease Diagnoses Pleural effusion Acute hypoxic respiratory failure (CMS/HCC) Chronic obstructive pulmonary disease, unspecified COPD type (CMS/HCC) Pulmonary embolism, unspecified chronicity, unspecified pulmonary embolism type, unspecified whether acute cor pulmonale present ([facility]/HCC) Desmond Golden CNP [address] [place] [address] Phone: tel: fax: Referral ID Status Reason Start Date Expiration Date Visits Requested Visits Authorized [id number] Pending Review Specialty Services Required 12/16/2024 12/16/2025 1 1 Encounter Details Date Type Department Care Team (Late st Contact Info) Description 12/16/2024 2:45 PM EDT Office Visit [facility] [address] [place] [phone] Desmond Golden CNP [address] [place] [address] Encounter to establish care (Primary Dx); Gastroesophageal reflux disease without esophagitis; Pleural effusion; Acute hypoxic respiratory failure (CMS/HCC); Chronic obstructive pulmonary disease, unspecified COPD type (CMS/HCC); Pulmonary embolism, unspecified chronicity, unspecified pulmonary embolism type, unspecified whether acute cor pulmonale present (CMS/HCC); Deep vein thrombosis (DVT) of tibial vein of left lower extremity, unspecified chronicity (CMS/HCC); On home oxygen therapy Social History Tobacco Use Types Packs/Day Years Used Date Smoking Tobacco: Never Smokeless Tobacco: Never Tobacco Cessation:Counseling Given: Not Answered Depression Answer Date Recorded Patient Health Questionnaire-9 Score 6 12/16/2024 Patient Health Questionnaire-9 Score 6 12/16/2024 Last PHQ-9: Questionnaire Data Not on file 0 12/16/2024 Housing Stability Answer Date Recorded What is your housing situation today? I have dee lyle 12/16/[address] you li ve. Do you have problems with any of the following? None of the above 12/16/2024 Food Insecurity Answer Date Recorded Within the past 12 months, y ou worried that your food would run out before you got money to buy more: Never True 12/16/2024 Within the past 12 months,th e food you bought just didn't last and you didn't have enough money to get more: Never True Transportation Answer Date Recorded In the past 12 months, has l ack of transportation kept you from medical appts, meetings, work or from getting things needed for daily living? No 12/16/2024 Utilities Answer Date Recorded In the past 12 months, has t he electric, gas, oil or water company threatened to shut off services in your home? No 12/16/2024 Depression Answer Date Recorded Patient Health Questionnaire-2 Score 4 12/16/2024 Internet Access Answer Date Recorded Internet Access Q1 No 12/16/2024 Internet Access Q2 I do not want or need it 11/19 Sex and Gender Information Value Date Recorded Sex Assigned at Male 03/19/2022 10:34 AM EDT Legal Sex Male 10:34 AM EDT Gender Identity Male 03/19/2022 10:34 AM EDT Sexual Orientation Straight 03/19/2022 10 :34 AM EDT documented as of this encounter Last Filed Vital Signs Vital Sign Reading Time Taken Comments Blood Pressure 110/76 12/16/2024 2:39 PM EDT Pulse 78 12/16/2024 2:39 PM EDT Temperature 36.1 C (97 F) 12/16/2024 2:39 PM EDT Respiratory Rate 18 12/16/2024 2:39 PM EDT Oxygen Saturation 99% 12/16/2024 2:39 PM EDT Inhaled Oxygen Concentration - - Weight 75 kg (165 lb 6.4 oz) 12/16/2024 2:39 PM EDT Height 175.3 cm (5' 9 ) 12/16/2024 2:39 PM EDT Body Mass Index 24.43 12/16/2024 2:39 PM EDT documented in this encounter Functional Status * Over the past 2 weeks, how often have you been bothered by any of the following problems? Question Answer Date of Assessment Author Patient Health Questionnaire-2 Score 4 11/19 3:26 PM EDT Josi Ragsdale MA * Little interest or pleasure in doing things Answer Date of Assessment Author More than half the days 12/16/2024 3:26 PM EDT Josi Looney MA * Feeling down, depressed, or hopeless Answer Date of Assessment Author More than half the days 12/16/2024 3:26 PM EDT Josi Looney MA * Trouble falling or staying asleep, or sleeping too much Answer Date of Assessment Author Not at all 12/16/2024 3:26 PM EDT Leonard Ragsdale ra, [place] * Feeling tired or having little energy Answer Date of Assessment Author More than half the days 12/16/2024 3:26 PM EDT Josi Looney MA * Poor appetite or overeating Answer Date of Assessment Author Not at all 12/16/2024 3:26 PM EDT Leonard Ragsdale ra, [place] * Feeling bad about yourself - or that you are a failure or have let yourself or your family down Answer Date of Assessment Author Not at all 12/16/2024 3:26 PM EDT Leonard Ragsdale ra, [place] * Trouble concentrating on things, such as reading the newspaper or watching television Answer Date of Assessment Author Not at all 12/16/2024 3:26 PM EDT Leonard Ragsdale ra, [place] * Moving or speaking so slowly that other people could have noticed? Or the opposite - being so fidgety or restless that you have been moving around a lot more than usual. Answer Date of Assessment Author Not at all 12/16/2024 3:26 PM EDT Leonard Ragsdale ra, [place] * Thoughts that you would be better off or hurting yourself in some way Answer Date of Assessment Author Not at all 12/16/2024 3:26 PM EDT Leonard Ragsdale ra, [place] * Patient Health Questionnaire-9 Score Answer Date of Assessment Author 6 12/16/2024 3:26 PM EDT Leonard Ragsdale ra, [place] documented as of this encounter Plan of Treatment Upcoming Encounters Date Type Department Care Team (Late st Contact Info) Description 12/22/2024 10:00 AM EDT Office Visit [address] [address] Yves Day MD [address] [place] [id number] 12/29/2024 10:45 AM EDT Clinical Support [address] [address] Nany Segundo RN Scheduled Orders Name Type Priority Associated Diagnoses Orde r Schedule CBC auto differential Lab Routine Encounter to establish care Expected: 12/16/2024 (Approximate), Expires: 12/16/2025 Comprehensive Metabolic Panel Lab Routine Encounter to establish care Expected: 12/16/2024 (Approximate), Expires: 12/16/2025 TSH W/Reflex to FT4 Lab Routine Encounter to establish care Expected: 12/16/2024 (Approximate), Expires: 12/16/2025 Hemoglobin A1c Lab Routine Encounter to establish care Expected: 12/16/2024 (Approximate), Expires: 12/16/2025 Lipid Panel, Standard Lab Routine Encounter to establish care Expected: 12/16/2024 (Approximate), Expires: 12/16/2025 Albumin, Random Urine W/Creatinine Lab Routine Encounter to establish care Expected: 12/16/2024 (Approximate), Expires: 12/16/2025 Scheduled Referrals Name Type Priority Associated Diagnoses Order Schedule Referral to Pulmonology Outpatient Referral STAT Pleural effusion Acute hypoxic respiratory failure (CMS/HCC) Chronic obstructive pulmonary disease, unspecified COPD type (CMS/HCC) Pulmonary embolism, unspecified chronicity, unspecified pulmonary embolism type, unspecified whether acute cor pulmonale present (CMS/HCC) Expected: 12/16/2024 (Approximate), Expires: 12/16/2025 Referral to Gastroenterology Outpatient Referral Routine Gastroesophageal reflux disease without esophagitis Expected: 12/16/2024 (Approximate), Expires: 12/16/2025 Referral to Vascular Surgery Outpatient Referral Routine Deep vein thrombosis (DVT) of tibial vein of left lower extremity, unspecified chronicity (CMS/HCC) Expected: 12/16/2024 (Approximate), Expires: 12/16/2025 Referral to Physical Therapy Outpatient Referral Routine Encounter to establish care Acute hypoxic respiratory failure (CMS/HCC) On home oxygen therapy Expected: 12/16/2024 (Approximate), Expires: 12/16/2025 documented as of this encounter Visit Diagnoses Diagnosis Encounter to establish care- Primary Gastroesophageal reflux disease without esophagitis Esophageal reflux Pleural effusion Unspecified pleural effusion Acute hypoxic respiratory failure (CMS/HCC) Chronic obstructive pulmonary disease, unspecified COPD type (CMS/HCC) Pulmonary embolism, unspecified chronicity, unspecified pulmonary embolism type, unspecified whether acute cor pulmonale present (CMS/HCC) Deep vein thrombosis (DVT) of tibial vein of left lower extremity, unspecified chronicity (CMS/HCC) On home oxygen therapy Dependence on supplemental oxygen documented in this encounter Additional Health Concerns Assessment Noted Time PHQ-9 Depression Total Score: 6 12/17/19 25 3:26 PM EDT documented as of this encounter Care Teams Radio Program Checker Relationship Specialty Start Date End Date Desmond Golden CNP [address] [place] [id number] PCP - General Family Medicine 12/16/24 documented as of this encounter
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
[2024-12-17 11:06] LABS: MANUAL DIFF FLAG NO
[2024-12-17 11:29] LABS: Hemoglobin A1C 111.4232 umol/L; Total Hemoglobin (HGBA1C) 3128.0549 umol/L
[2024-12-17 11:31] LABS: Hematocrit 36.4 % (42.0-52.0); Hemoglobin 12.0 g/dl (14.0-18.0); Imm Gran Abs Auto 0.01 X10*3/uL (0.00-0.03); Imm Gran Pct Auto 0.2 % (0.0-0.4); Lymphocytes Absolute Auto 1.4 X10*3/uL (1.2-4.9); Mean Corpuscular HGB Conc 33.0 g/dl (31.0-36.0); Mean Corpuscular Hemoglobin 29.1 pg (27.0-33.0); Mean Corpuscular Volume 88.1 fL (80.0-98.0); NRBC Abs Auto 0.000 X10*3/uL (0.0-0.012); NRBC Pct Auto 0.0 /100WBC (0.0-0.2); Platelet Count 196 X10*3/uL (160-400); Red Blood Count 4.13 X10*6/uL (4.60-5.80); White Blood Count 5.5 X10*3/uL (4.8-10.8)
[2024-12-17 11:50] LABS: Alanine Aminotransferase 20 U/L (0-40); Albumin Level 4.0 g/dL (3.5-5.0); Alkaline Phosphatase 126 U/L (39-117); Anion Gap 14 (12-20); Aspartate Amino Transferase 33 U/L (5-37); Blood Urea Nitrogen 17 mg/dL (9-16); Calcium 9.0 mg/dL (8.4-10.2); Carbon Dioxide 29 mmol/L (22-29); Chloride 105 mmol/L (96-108); Cholesterol 101 mg/dL (<200); Estimated Glomerular Filt Rate > 60; HDL Cholesterol 43 mg/dL (>40); HIV Num 1 0.05 S/CO (0.00-0.99); Potassium 3.6 mmol/L (3.3-5.1); Sodium 144 mmol/L (135-145); Syphilis Screen Nonreactive (Nonreactive); Total Protein 6.6 g/dL (6.5-8.0); Triglycerides 52 mg/dL (<150); ~HepC Num1 3.19 S/CO (0.00-0.79); ~Hepatitis C Antibody Reactive (Nonreactive)
[2024-12-18 03:45] LABS: ~Hepatitis A Antibody IgG 8.58 S/CO (0.00-0.99)
[2024-12-19 21:49] LABS: TS Negative Control Passed; TS Panel A 1; TS Panel B 2; TS Positive Control Passed; TSpotTB Negative (Negative)
[2024-12-22 15:38] LABS: HCV Log PCR <1.18 NOT DETECTED Log IU/mL (NOT DETECTED); HepC Viral Load <15 NOT DETECTED IU/mL (NOT DETECTED)
== END 2024-12-17 08:40 | disposition home or self-care (01) ==
LOC: HO.HHCL 08:39
PROVIDERS: Referring Provider Emergency Medicine
DX: F11.20 Opioid dependence, uncomplicated (principal); Z76.89 Persons encountering health services in other specified circumstances; Z13.1 Encounter for screening for diabetes mellitus; Z13.6 Encounter for screening for cardiovascular disorders
CPT/HCPCS: 36415; 80053; 80061; 80076; 82043; 82248; 82570; 83036; 84443; 85025; 86481; 86708; 86780; 86803; 87389; 87522

== ENCOUNTER 2024-12-22 13:20 | Outpatient (AMB) | payer MEDICARE, SELFPAY ==
[2024-12-22 13:22] VITALS: BP 90/58; PULSE 85; O2SAT 95; BMI 24.4
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
--- OUTSIDE RECORDS SUMMARY | 2024-12-22 13:59 | XMS_ITS | Encounter Summary ---
Author Organization [employer] Address [address] [facility] [address] [place] [address] Care Team Providers Care Photostat Operator Name Role Phone Desmond Golden SHORTY Primary Care Provider [phone] [phone] Encounter Details Date Type Department Care Team (Latest Contact Info) Description 12/22/2024 Travel Social History Tobacco Use Types Packs/Day Years Used Date Smoking Tobacco: Never Smokeless Tobacco: Never Depression Answer Date Recorded Patient Health Questionnaire-9 [...] AM EDT documented as of this encounter Plan of Treatment Upcoming Encounters Date Type Department Care Team (Late st Contact Info) Description 01/05/2025 9:30 AM EDT Clinical Support [facility] [address] [place] [id number] Nany Segundo RN documented as of this encounter Visit Diagnoses Not on filedocumented in this encounter Additional Health Concerns Assessment Noted Time PHQ-9 Depression Total Score: 6 12/17/19 25 3:26 PM EDT documented as of this encounter Care Teams Photostat Operator Relationship Specialty Start Date End Date Desmond Golden CNP [address] [place] [address] PCP - General Family Medicine 12/16/24 documented as of this encounter
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
== END 2024-12-22 14:06 | disposition home or self-care (01) ==
PROVIDERS: Visit Provider Hospitalist
DX: I26.99 Other pulmonary embolism without acute cor pulmonale (principal); J90 Pleural effusion, not elsewhere classified; I31.39 Other pericardial effusion (noninflammatory); J43.2 Centrilobular emphysema
CPT/HCPCS: 99204

== ENCOUNTER → 2024-12-22 13:20 | Outpatient (BNVA) | payer MEDICARE, SELFPAY | PROVIDERS: Visit Provider Hospitalist | DX: I26.99 Other pulmonary embolism without acute cor pulmonale (principal); J90 Pleural effusion, not elsewhere classified; I31.39 Other pericardial effusion (noninflammatory); J43.2 Centrilobular emphysema; Z87.891 Personal history of nicotine dependence | CPT/HCPCS: 99202 ==

== ENCOUNTER 2024-12-29 10:56 | Outpatient (AMB) | payer OTHER, SELFPAY ==
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
[2024-12-29 11:01] VITALS: BMI 24.4
--- OUTSIDE RECORDS SUMMARY | 2024-12-29 12:04 | XMS_ITS | Clinical Summary ---
Author Organization [facility] Address [address] [place] [address] Care Team Providers Care Launch Commander [employer] Name Role Phone Unavailable Primary Care Provider [...] 09/2008 COLONOSCOPY 02/14/2015 PROCEDURE: HISTORICAL COLONOSCOPY; COMMENT: [facility] [place]; Dr. Pablo Grider; negative/poor preparation. Repeat 5 years. COLONOSCOPY 12/05/2016 PROCEDURE: HISTORICAL COLONOSCOPY; [place] [facility]; solitary 3 mm tubular adenoma from the transverse colon. Solitary small angiodysplasia in the transverse colon. UPPER GASTROINTESTINAL ENDOSCOPY 12/05/2016 PROCEDURE: [place] UPPER GI ENDOSCOPY PERFORMED; COMMENT: [facility]; duodenal biopsies normal; chronic gastritis with [...] y of colonoscopy; COMMENT: Screening colonoscopy 02/14/2015, [facility], Dr. Pablo Grider, negative examination with suboptimal prep. Repeat 5 years. Helicobacter pylori infection 12/25/2016 DX :Helicobacter pylori infection; COMMENT: Upper GI endoscopy and biopsy 12/05/2016@[facility]. Family History Medical History Relation Name [...] Documents on File Type Date Recorded Patient Prop Worker Expl anation Health Care Decision (hx) 07/09/2014 AD STOKES DIRECTIVE Health Care Decision (hx) 07/09/2014 AD STOKES DIRECTIVE Health Care Decision (hx) 07/09/2014 AD STOKES DIRECTIVE
--- OUTSIDE RECORDS SUMMARY | 2024-12-29 12:04 | XMS_ITS | Encounter Summary ---
Author Organization [email or web address] Address [address] [place] [address] 7 [place] [address] Care Team Providers Care Incoming Inspector Name Role Phone Desmond Golden CNP Primary Care Provider [phone] Reason for Visit * Reason Onset Date Comments Referral 12/28/2024 Encounter Details Date Type Department Care Team (Late st Contact Info) Description 12/28/2024 Telephone [facility] [address] [place], [place] [id number] Desmond Golden CNP [address] [place] [address] Referral Social History Tobacco Use Types Packs/Day Years [...] AM EDT documented as of this encounter Miscellaneous Notes * Telephone Encounter - Keenan Rodriguez - 12/28/2024 3:02 PM EDT TC from daughter reports pt was seen on 12/16 by OLGA Golden . Reports pt was to get a pediatristreferral due to nail on right foot( third toe) documented in this encounter Plan of Treatment Upcoming Encounters Date Type Department Care Team (Late st Contact Info) Description 01/05/2025 9:30 AM EDT Clinical Support [facility] [address] [place] [address] Nany Segundo RN documented as of this encounter Visit Diagnoses Not on filedocumented in this encounter Additional Health Concerns Assessment Noted Time PHQ-9 Depression Total Score: 6 12/17/19 25 3:26 PM EDT documented as of this encounter Care Teams Incoming Inspector Relationship Specialty Start Date End Date Desmond Golden CNP [address] [place] [address] PCP - General Family Medicine 12/16/24 documented as of this encounter
== END 2024-12-29 11:46 | disposition home or self-care (01) ==
LOC: HO.HVS 10:57
PROVIDERS: Visit Provider Surgery Vascular Surgery
DX: I26.99 Other pulmonary embolism without acute cor pulmonale (principal)
CPT/HCPCS: 99213

== ENCOUNTER → 2024-12-29 10:56 | Outpatient (BNVA) | payer MEDICARE, SELFPAY | PROVIDERS: Visit Provider Surgery Vascular Surgery | DX: I26.99 Other pulmonary embolism without acute cor pulmonale (principal) | CPT/HCPCS: 99212 ==

== ENCOUNTER 2025-02-11 08:00 | Outpatient (REF) | payer MEDICARE, SELFPAY ==
--- NOTE | ~2025-02-11 | CT_ITS ---
EXAMINATION: CT ANGIOGRAM CHEST CLINICAL INFORMATION: Other pulmonary embolism without acute cor pulmonale. Thrombectomy 11/11/2024. COMPARISON: 11/10/2024. TECHNIQUE: Multiple axial images were obtained through the chest after the administration of 50 mL of Omnipaque 350 intravenous contrast. Extensive vascular post-processing including two-dimensional and three-dimensional reformatted images were created and reviewed on an independent workstation. This CT examination was performed using dose optimization techniques as appropriate, variously including the following: *Automated exposure control *Adjustment of mA and/or kV according to patient size (this includes techniques or standardized protocols for targeted exams where dose is matched to indication/reason for exam; i.e. extremities or head) *Use of iterative reconstruction technique FINDINGS: VASCULAR: Study quality is diagnostic. There is no evidence of pulmonary embolism. Previously seen pulmonary emboli have resolved. The main pulmonary artery is mildly prominent, unchanged. No right heart strain. No reflux of contrast into the SVC. The aorta is mildly uncoiled, mildly atheromatous, however there is no aneurysm or acute aortic syndrome. Great vessels branch normally. There are patent with mild calcification at the origins. The heart size is normal. There are moderate coronary calcifications. There is no pericardial effusion. LUNGS: Mild to moderate centrilobular emphysema is present. There are trace bilateral layering pleural effusions with associated minimal passive atelectasis. Mild reticular scarring is present in the left greater than right lower lobes, similar to the prior exam. Mild thickening of the small airways is noted. No significant mucous plugging is present. No consolidations or abnormal groundglass opacities. There is no pneumothorax. MEDIASTINUM: No lymphadenopathy or mass in the mediastinum. Partially imaged thyroid is normal. Central airways are patent. Esophagus is unremarkable. AXILLA/CHEST WALL: No abnormal lymphadenopathy or mass. There is mild bilateral male gynecomastia. UPPER ABDOMEN: Imaged upper abdominal contents appear grossly normal. OSSEOUS STRUCTURES: No suspicious lytic or blastic bone lesions are present. Moderate degenerative changes of the thoracic spine. No fractures or compression deformities. CT/CT angio chest PE protocol IMPRESSION: 1. No evidence of pulmonary embolism. Moderate prominence of the main pulmonary artery may suggest increased pulmonary pressures. 2. No evidence of aortic aneurysm or acute aortic syndrome. 3. Mild to moderate centrilobular emphysema. Trace pleural effusions with associated minimal passive atelectasis. 4. Small airway thickening, consistent with probable chronic bronchitis although improved from the prior examination. 5. Minor scarring/atelectasis in the left lower lobe. Electronically signed by: Brian Medina MD 02/11/2025 10:44 AM EDT
[2025-02-11 08:16] LABS: MANUAL DIFF FLAG NO
[2025-02-11 08:46] LABS: Hematocrit 36.8 % (42.0-52.0); Hemoglobin 12.3 g/dl (14.0-18.0); Imm Gran Abs Auto 0.01 X10*3/uL (0.00-0.03); Imm Gran Pct Auto 0.1 % (0.0-0.4); Lymphocytes Absolute Auto 1.4 X10*3/uL (1.2-4.9); Mean Corpuscular HGB Conc 33.4 g/dl (31.0-36.0); Mean Corpuscular Hemoglobin 28.6 pg (27.0-33.0); Mean Corpuscular Volume 85.6 fL (80.0-98.0); NRBC Abs Auto 0.000 X10*3/uL (0.0-0.012); NRBC Pct Auto 0.0 /100WBC (0.0-0.2); Platelet Count 183 X10*3/uL (160-400); Red Blood Count 4.30 X10*6/uL (4.60-5.80); White Blood Count 7.3 X10*3/uL (4.8-10.8)
[2025-02-11 09:32] LABS: Anion Gap 11 (12-20); Blood Urea Nitrogen 17 mg/dL (9-16); Calcium 9.4 mg/dL (8.4-10.2); Carbon Dioxide 31 mmol/L (22-29); Chloride 107 mmol/L (96-108); Estimated Glomerular Filt Rate > 60; Potassium 3.7 mmol/L (3.3-5.1); Sodium 145 mmol/L (135-145)
[2025-02-11] MEDS: iohexoL 350 MG/ML 100 ML INFUS..BTL IV (10:28)
[2025-02-11 15:39] LABS: Creatinine POC 0.8 mg/dL (0.5-1.4); GFR POC > 60
== END 2025-02-11 08:01 | disposition home or self-care (01) ==
LOC: HO.CT 08:00
PROVIDERS: Visit Provider Hospitalist
DX: I26.99 Other pulmonary embolism without acute cor pulmonale (principal)
CPT/HCPCS: 36415; 71275; 80048; 82565; 85025; Q9967

== ENCOUNTER → 2025-02-11 08:16 | Outpatient (BNV) | payer MEDICARE, SELFPAY | PROVIDERS: Visit Provider Radiology Diagnostic Radiology | DX: J43.2 Centrilobular emphysema (principal) | CPT/HCPCS: 71275 ==

== ENCOUNTER 2025-02-24 07:41 | Outpatient (REF) | payer MEDICARE, SELFPAY ==
--- OUTSIDE RECORDS SUMMARY | 2025-02-24 07:43 | XMS_ITS | Encounter Summary ---
Author Organization [employer] Address [address] [facility] [address] [place] [address] Care Team Providers Care Software Quality Analyst Name Role Phone Desmond Golden CNP Primary Care Provider [phone] [phone] Reason for Visit * Reason Onset Date Comments Prior Auth Prescription 01/01/2025 Encounter Details Date Type Department Care Team (Late st Contact Info) Description 01/01/2025 Telephone [facility] [address] [place] [address] Desmond Golden CNP [address] [place] [address] Prior Auth Prescription Social History Tobacco Use Types Packs/Day Years [...] encounter Miscellaneous Notes * Telephone Encounter - Sheryl Gerardo RN - 01/01/2025 1:02 PM EDT Request for nebulizer solution responded to by PCP on separate encounter (Med Refill encounter 01/01/25). Pt to follow up PRN. * Telephone Encounter - Diana Mendez - 01/01/2025 11:40 AM EDT Med Spiriva handihaler is covered by insurance. Per conv with [facility] pharmacy/Ed, rx filled 12/16/24 and no PA is needed. Director Service called pt, s/w daughter Mckenna who confirmed pt received spiriva on 12/16 and stated pt still needs albuterol nebulizer solution prescribed in [place]. Director Service advised pt to contact pcp office to request rx. Mckenna verbalized understanding and agreed to call pcp office. Sending to team nurses for assistance with pt req for rx nebulizer solution. Thank you * Telephone Encounter - Rea Quintana - 01/01/2025 11:14 AM EDT Tc from pt needing a PA for tiotropium (Spiriva HandiHaler) 18 MCG inhalation capsule Contact pt at [phone] documented in this encounter Plan of Treatment Upcoming Encounters Date Type Department Care Team (Late st Contact Info) Description 03/16/2025 10:15 AM EDT Office Visit [facility] [address] [place] [address] Yves Day MD [address] [place] [address] documented as of this encounter Visit Diagnoses Not on filedocumented in this encounter Additional Health Concerns Assessment Noted Time PHQ-9 Depression Total Score: 6 12/17/19 25 3:26 PM EDT documented as of this encounter Care Teams Software Quality Analyst Relationship Specialty Start Date End Date Desmond Golden CNP PCP - General Family Medicine 12/16/24 documented as of this encounter
--- OUTSIDE RECORDS SUMMARY | 2025-02-24 07:43 | XMS_ITS | Clinical Summary ---
Author Organization [employer] Address [address] [facility] [address] [place] [address] Care Team Providers [employer] Name Role Phone Desmond Golden SHORTY Primary Care Provider [phone] Allergies Active Allergy Reactions Criticality Noted Date Comments Shellfish Allergy 02/17/2025 Other Reaction(s): throat closes & heart races Shrimp (Diagnostic) 04/12/2009 Other Reaction(s): Hives/Urticaria, THROAT CLOSES Shrimp Extract 06/11/2018 Medications docusate sodium (Colace) 100 MG capsule 1 or 2 capsules PO at bedtime prn constipation (stool softener). 60 capsule 3 12/09/19 25 Active albuterol 108 (90 Base) MCG/ACT inhalerIndicat ions:Encounter to establish care Inhale 2 puffs every 4 (four) hours. 18 g 12/17/19 25 Active amitriptyline (Elavil) 10 MG tabletIndicati ons:Encounter to establish care Take 1 tablet (10 mg) by mouth at bedtime. 30 tablet 12/17/19 25 Active atorvastatin (Lipitor) 40 MG tabletIndicati ons:Encounter to establish care Take 1 tablet (40 mg) by mouth Once per day. 30 tablet 12/17/19 25 Active carvedilol (Coreg) 6.25 MG tabletIndicati ons:Encounter to establish care Take 1 tablet (6.25 mg) by mouth 2 times daily. 30 tablet 12/17/19 25 Active Eliquis 5 MG tabletIndicati ons:Encounter to establish care Take 1 tablet (5 mg) by mouth every 12 (twelve) hours. 60 tablet 12/17/19 25 Active furosemide (Lasix) 20 MG tabletIndicati ons:Encounter to establish care Take 1 tablet (20 mg) by mouth Once per day. 30 tablet 12/17/19 25 Active hydroCHLOROthi azide (HYDRODiuril) 25 MG tabletIndicati ons:Encounter to establish care Take 1 tablet (25 mg) by mouth every other day. 30 tablet 12/17/19 25 Active tiotropium (Spiriva HandiHaler) 18 MCG inhalation capsuleIndicat ions:Encounter to establish care Place 1 capsule (18 mcg) into inhaler and inhale in the morning. 30 capsule 12/17/19 25 Active meclizine (Antivert) 25 MG tablet Take 25 mg by mouth if needed in the morning, at noon, and at bedtime. 07/20/19 17 Active aspirin 81 MG EC tablet Take 81 mg by mouth. 10/02/19 18 Active ferrous sulfate ER 50 MG ER tablet Take 1 tablet by mouth Once per day. 12/12/19 17 Active hydrOXYzine HCl (Atarax) 25 MG tablet take 1 Tablet by oral route up to 3 times a day as needed for itchiness 03/28/20 21 Active metoprolol succinate XL (Toprol-XL) 25 MG 24 hr tablet Take 25 mg by mouth Once per day. 10/17/19 19 Active pantoprazole (ProtoNix) 40 MG EC tabletIndicati ons:Gastroesop hageal reflux disease without esophagitis Take 1 tablet (40 mg) by mouth before breakfast. 30 tablet 12/17/19 25 Active amLODIPine (Norvasc) 5 MG tabletIndicati ons:Encounter to establish care TAKE 1 TABLET BY MOUTH EVERY DAY 30 tablet 11 12/18/19 25 Active famotidine (Pepcid) 10 MG tablet Take 20 mg by mouth Once per day. Active cetirizine (ZyrTEC) 10 MG tablet Take 1 tablet by mouth at bed time. 03/28/20 21 Active tamsulosin (Flomax) 0.4 MG 24 hr capsule TAKE 1 CAPSULE BY MOUTH EVERY DAY 30 capsule 3 01/16/20 25 Active Buprenorphine HCl-Naloxone HCl (Suboxone) 8-2 MG SL filmIndication s:Opioid dependence in remission (CMS/HCC) ([facility]) Place 1 Film under the tongue Once per day for 28 days. 28 Film 01/30/20 25 10/10/ 2025 Active sennosides (Senokot) 8.6 MG tablet 1 or 2 tablet PO at bedtime prn constipation (stimulates bowels). 60 tablet 3 02/03/20 25 Active polyethylene glycol, PEG, 3350 (MiraLax) 17 GM/SCOOP powder 1 scoop (17 gms) in 8 ounces of liquid daily x 3days, the q 2-3 days prn constipation. 527 g 2 02/03/20 25 Active albuterol (2.5 MG/3ML) 0.083% nebulizer solutionIndica tions:Chronic obstructive pulmonary disease, unspecified COPD type (CMS/HCC) ([facility]) TAKE 3 ML BY NEBULIZATION EVERY 4 HOURS NEEDED FOR WHEEZING 75 mL 02/16/20 25 Active triamcinolone (Kenalog) 0.1 % creamIndicatio ns:Venous stasis dermatitis Apply topically if needed in the morning and at bedtime (pain and swelling). 30 g 2 02/18/20 25 Active acetaminophen (Tylenol Extra Strength) 500 MG tabletIndicati ons:Chronic migraine w/o aura w/o status migrainosus, not intractable Take 1 tablet (500 mg) by mouth every 6 (six) hours if needed for headaches for up to 10 days. 30 tablet 02/18/20 25 2024 Active Diclofenac Sodium 1 % gelIndications :Other chronic pain Apply to affected areas twice daily for pain relief. 50 g 02/18/20 25 Active Misc. Devices (Pulse Oximeter) miscIndication s:Chronic obstructive pulmonary disease, unspecified COPD type (CMS/HCC) ([facility]),Pleural effusion,On home oxygen therapy Use device to check oxygen saturation daily. 1 each 02/18/20 25 Active albuterol (2.5 MG/3ML) 0.083% nebulizer solutionIndica tions:Chronic obstructive pulmonary disease, unspecified COPD type (CMS/HCC) ([facility]) Take 3 mL (2.5 mg) by nebulization every 4 (four) hours if needed for wheezing. 75 mL 01/02/20 25 2024 Discontinued(R eorder (will not trigger notification to Pharmacy)) Buprenorphine HCl-Naloxone HCl (Suboxone) 8-2 MG SL filmIndication s:Opioid dependence in remission (CMS/HCC) ([facility]) Place 1 Film under the tongue Once per day for 14 days. 14 Film 01/16/20 25 2024 Discontinued(R eorder (will not trigger notification to Pharmacy)) triamcinolone (Kenalog) 0.1 % creamIndicatio ns:Venous stasis dermatitis Apply topically if needed in the morning and at bedtime (pain and swelling). 30 g 2 02/18/20 25 2024 Discontinued Active Problems Problem Noted Date Diagnosed Date Heroin dependence ([facility]) 02/17/2025 Overview (02/17/2025): last use 1 year ago- on methadone maintenance Gastroesophageal reflux disease without esophagi tis 12/17/2024 Assessment & Plan (12/17/2024 5:43 PM EDT): Pt on protonix 40mg and famotidine 20 mg, sx are well controlled Pt to establish with GI for routine colonoscopy. Last colonoscopy from 2020- normal. Advised pt avoid trigger foods (e.g., spicy foods, chocolate, caffeine, alcohol, peppermint) Eat smaller meals and avoid lying down within 2-3 hours of eating Deep vein thrombosis (DVT) o f tibial vein of left lower extremity 12/17/2024 Assessment & Plan (12/17/2024 5:45 PM EDT): Continue on elliquis Pt to f/u with Dr. [facility] Pt to follow up with Dr. Awais Lock, workup for hypercoagulability? On home oxygen therapy 12/17/2024 Assessment & Plan (12/17/2024 5:47 PM EDT): Pt to follow up with pulm Pt referred to PT Provided counseling about oxygen safety in home Allergies 12/17/2024 Assessment & Plan (12/17/2024 5:47 PM EDT): No allergic reactions sx today Pt subjective hx of anew allergic reactions to foods and hygiene products Referral to allergy placed for patch testing History of migraine 12/16/2024 History of phlebitis 12/16/2024 Overview (12/16/2024): left leg Migraine without aura, not refractory 12/16/2024 Spinal stenosis 12/16/2024 Swelling of scrotum 12/16/2024 History of substance use 11/30/2024 Pulmonary embolism 11/30/2024 Assessment & Plan (12/17/2024 5:44 PM EDT): Pt is s/p thrombectomy 10/2024 Continue on elliquis Continue on home 02 as directed F/u with pulm, pt to see Dr. Parada Pleural effusion 11/30/2024 Chronic obstructive lung disease 11/30/2024 Assessment & Plan (12/17/2024 5:39 PM EDT): Pt vitals stable including 02 sat, no respiratory distress, sob, pulmonary exam within normal limits Pt on Spiriva and albuterol prn Pt also on supplemental 02 at home @ 2L s/p PE Pt referred to pulm today Disease due to severe acute respiratory syndrome coronavirus 2 (SARS-CoV-2) 09/28/2021 Overview (12/16/2024): Problem added by Discern Expert Opioid dependence in remission ([facility]) 019 Hypertensive disorder 06/11/2018 Illiteracy 06/11/2018 Helicobacter pylori infection 12/25/2016 Overview (12/16/2024): Upper GI endoscopy and biopsy 12/05/2016@[facility]. History of colonoscopy 02/23/2015 Overview (12/16/2024): Screening colonoscopy 02/14/2015, [facility], Dr. Pablo Grider, negative examination with suboptimal prep. 12/05/2016: Colonoscopy@[facility]; small tubular adenoma of the transverse colon. 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 06/26 Drug withdrawal ([facility]/HCC) 06/26/2005 Hepatitis C carrier ([facility]/HCC) 06/26/2005 Assessment & Plan (12/17/2024 5:37 PM EDT): Hep C testing ordered by [facility] program Will await HCV RNA results Tobacco use disorder 06/26/2005 Resolved Problems Problem Noted Date Diagnosed Date Resolved Date Acute hypoxic respiratory failure (CMS/HCC) 11/30/2024 12/17/2024 Encounters Date Type Department Care Team Description 02/17/2025 9:45 AM EDT Office Visit [facility] [address] [place] [address] Desmond Golden CNP Transaminitis (Primary Dx); Encounter to establish care; Deep vein thrombosis (DVT) of tibial vein of left lower extremity, unspecified chronicity ([facility]); Venous stasis dermatitis; Seborrheic keratosis; Chronic migraine w/o aura w/o status migrainosus, not intractable; Other chronic pain; Chronic obstructive pulmonary disease, unspecified COPD type (CMS/HCC) ([facility]); Pleural effusion; On home oxygen therapy; Encounter for immunization 02/17/2025 Travel 02/17/2025 Telephone [facility] [address] [place] [address] Desmond Golden CNP chat prep 02/16/2025 9:30 AM EDT Clinical Support [facility] [address], [place] [phone] Nany Segundo RN Opioid dependence in remission (CMS/HCC) (Primary Dx) 02/16/2025 Travel 02/15/2025 Refill [facility] [address] [place] [address] Desmond Golden CNP Chronic obstructive pulmonary disease, unspecified COPD type (CMS/HCC) 02/11/2025 Orders Only GENERIC EXTERNAL DATA DEPARTMENT Provider, Generic External Data 02/10/[address] [address] Nany Segundo RN Opioid dependence in remission ([facility]/HCC) 02/02/2025 10:45 AM EDT Clinical Support [address] [address] Nany Segundo RN Opioid type dependence, continuous ([facility]/HCC) (Primary Dx) 02/02/[address] [address] Yves Day MD 02/02/[address] [address] Yves Day MD 02/02/2025 Travel 01/26/[address] [address] Nany Segundo RN Opioid dependence in remission ([facility]/HCC) 01/26/[address] [address] Nany Segundo RN 01/19/2025 9:30 AM EDT Clinical Support [address] [address] Nany Segundo RN Uncomplicated opioid dependence ([facility]) (Primary Dx) 01/19/2025 Travel 01/15/2025 Refill [facility] [address] [place] [address] Desmond Golden CNP 01/13/2025 Refill [facility] [address] [place] [address] Nany Segundo RN Opioid dependence in remission ([facility]/HCC) 01/05/2025 9:30 AM EDT Clinical Support [address] [address] Nany Segundo RN Uncomplicated opioid dependence ([facility]/HCC) (Primary Dx) 01/05/2025 Travel 01/01/[address] [address] Desmond Golden CNP Prior Auth Prescription 01/01/[address] [address] Desmond Golden CNP Med Refill 01/01/[address] [address] Nany Segundo, BETITO Opioid dependence in remission ([facility]/HCC) 12/30/2024 Orders Only [address] [address] Desmond Golden CNP Chronic obstructive pulmonary disease, unspecified COPD type ([facility]/HCC) (Primary Dx) 12/30/2024 Orders Only [address] [address] Desmond Golden CNP Deformity of toe of left foot (Primary Dx) 12/29/2024 Refill [facility] [address] [place] [address] Nany Segundo RN Opioid dependence in remission ([facility]/HCC) 12/28/[address] [address] Desmond Golden CNP Referral 12/22/2024 10:00 AM EDT Office Visit [address] [address] Yves Day MD Opioid dependence in remission ([facility]) (Primary Dx); Uncomplicated opioid dependence ([facility]/HCC) 12/22/2024 Travel 12/17/2024 Orders Only [address] [address] Yves Day MD 12/17/[address] [address] Nany Segundo RN Uncomplicated opioid dependence ([facility]) 12/16/2024 2:45 PM EDT Office Visit [address] [address] Desmond Golden CNP Encounter to establish care (Primary Dx); Gastroesophageal reflux disease without esophagitis; Pleural effusion; Acute hypoxic respiratory failure (CMS/[facility]); Chronic obstructive pulmonary disease, unspecified COPD type (CMS/HCC); Pulmonary embolism, unspecified chronicity, unspecified pulmonary embolism type, unspecified whether acute cor pulmonale present ([facility]/HCC); Deep vein thrombosis (DVT) of tibial vein of left lower extremity, unspecified chronicity (CMS/HCC); On home oxygen therapy; Allergy, initial encounter; Hepatitis C carrier (CMS/HCC) 12/16/[address] [address] Desmond Golden CNP Encounter to establish care 12/16/2024 Travel 12/15/2024 11:00 AM EDT Clinical Support [address] [address] Nany Segundo RN Uncomplicated opioid dependence ([facility]/HCC) (Primary Dx) 12/15/2024 Patient Outreach [address] [address] Devendra Oliveros [facility] 12/15/2024 Patient Outreach [address] [address] Devendra Oliveros [facility] 12/15/2024 Patient Outreach [address] [address] Devendra Oliveros [facility] 12/15/[address] [address] Nany Segundo RN Uncomplicated opioid dependence ([facility]/HCC) (Primary Dx) 12/15/2024 Patient Outreach [address] [address] Devendra Oliveros [facility] 12/15/2024 Travel 12/09/2024 Patient Outreach [facility] [address], [place] [phone] Desmond Golden CNP Pre-visit Planning (SDOH unable to complete. ) 12/08/2024 11:00 AM EDT Office Visit [address] [address] Yves Day MD Uncomplicated opioid dependence ([facility]/HCC) (Primary Dx); Opioid use disorder in remission 12/08/2024 Patient Outreach [address] [address] Edwin Eleno 12/08/2024 Travel 11/30/2024 2:00 PM EDT Office Visit [facility] [address] [place] [address] Alicia Smith MD Uncomplicated opioid dependence (CMS/HCC) (Primary Dx) 11/30/2024 1:30 PM EDT Office Visit [facility] [address] [place] [address] Carolee Siddiqui RN History of substance use 11/30/2024 Travel from Last 3 Months Immunizations Immunization Administration Dates Next Due Influenza High-dose Quadriva lent Preservative Free 03/07/2021,02/06/2020 Influenza injectable quadriv alent preservative free 12/22/2021 Influenza, High Dose Seasona l, Preservative Free 02/17/2025,02/01/2017,01/26/2016 Influenza, IIV3, injectable 03/11/2015,0 07/10/2014,02/17/2013,04/15,02/05/2011,03/08/2010,02/14/2009 Influenza, seasonal, injecta ble, preservative free 03/11/2015,02/17/2013,04/15/2012,02/05,03/08/2010,02/14/2009 Influenza, trivalent, adjuvanted 02/24/2018 Pfizer Covid-19 Vaccine 12+ 08/10/2020, Pneumococcal Conjugate PCV 13 02/24/2020, 018 Pneumococcal Polysaccharide PPSV23 03/11/2015, Tdap 02/17/2025,10/07/2008 Social History Tobacco Use Types Packs/Day Years [...] Sign Reading Time Taken Comments Blood Pressure 112/82 02/17/2025 9:39 AM EDT Pulse 84 02/17/2025 9:39 AM EDT Temperature 36.2 C (97.2 F) 02/17/2025 9:39 AM EDT Respiratory Rate 12 02/17/2025 9:39 AM EDT Oxygen Saturation 99% 12/16/2024 2:39 PM EDT Inhaled Oxygen Concentration - - Weight 75.8 kg (167 lb) 02/17/2025 9:39 AM EDT Height 175.3 cm (5' 9 ) 02/17/2025 9:39 AM EDT Body Mass Index 24.66 02/17/2025 9:39 AM EDT Plan of Treatment Upcoming Encounters Date Type Department Care Team (Late st Contact Info) Description 03/16/2025 10:15 AM EDT Office Visit [facility] [address], [place] [phone] Yves Day MD [address] [place] [address] Health Maintenance Due Date Last Done Comments Hepatitis A Vaccines (1 of 2 - Risk 2-dose series) 01/20/1967 Zoster Vaccines (1 of 2) 01/20/1998 Hepatitis B Vaccines (1 of 3 - Risk 3-dose series) 2008 Alcohol/Substance Use Screening 12/16/2025 12/16/2024 Depression Screening 12/16/2025 12/16/2024, 12/17/19 25 SDOH Screening 12/16/2025 12/16/2024 Tobacco Screening 12/16/2025 12/16/2024 RSV Patients and Patients Aged 60 years or older (1 - 1-dose 75+ series) 02/10/2026 Postponed from 01/20/2023 (Supply/Drug Shortage) COVID-19 Vaccine ( season) 2026 12/26/2021, 03/07/2021, 08/10/2020, Additional history exists Postponed from 01/18/2025 (Patient Refused) Lipid Panel 12/17/2029 12/17/2024, 12/19/2020 DTaP/Tdap/Td Vaccines (3 - Td or Tdap) 02/17/2035 02/17/2025, 10/07/2008 Pneumococcal Vaccine: 50+ Years Completed 02/24/2020, 10/01/2017, 03/11/2015, Additional history exists Colonoscopy Discontinued 03/22/2021 Colorectal Cancer Screening Discontinued Influenza Vaccine Completed 02/17/2025, , 03/07/2021, Additional history exists CT Colonography Discontinued FIT DNA/Cologuard Discontinued FIT [...] Procedure Name Priority Date/Time Associated Diagnosis Comments CTA CHEST PE PROTOCAL Routine 02/11/2025 10:04 AM EDT POCT CREATININE GFR Routine 02/11/2025 9 :24 AM EDT BASIC METABOLIC PANEL Routine 02/11/2025 8:13 AM EDT CBC WITH AUTO DIFFERENTIAL Routine 02/11/2025 8:13 AM EDT POCT ANDRES-14 URINE DRUG SCREEN Routine 02/02/2025 9:46 AM EDT Opioid type dependence, continuous (CMS/HCC) POCT ANDRES-14 URINE DRUG SCREEN Routine 01/05/2025 9:20 AM EDT Uncomplicated opioid dependence (CMS/HCC) POCT ANDRES-14 URINE DRUG SCREEN Routine 12/22/2024 10:08 AM EDT Opioid dependence in remission (CMS/HCC) HEPATITIS C VIRAL RNA, QUANTITATIVE, REAL-TIME PCR Routine 12/17/2024 8:54 AM EDT T-SPOT(R).TB Routine 12/17/2024 8:54 AM EDT HEPATITIS A ANTIBODY, TOTAL Routine 12/17/2024 8:54 AM EDT HIV 1/2 ANTIGEN/ANTIBODY, FOURTH GENERATION W/RFL Routine 12/17/2024 8:54 AM EDT HEPATITIS C AB W/REFL TO HCV RNA, QN, PCR Routine 12/17/2024 8:54 AM EDT SYPHILIS SCREEN Routine 12/17/2024 8:54 AM EDT HEPATIC FUNCTION PANEL Routine 8:54 AM EDT ALBUMIN, RANDOM URINE W/CREATININE Routine 12/17/2024 8:54 AM EDT Encounter to establish care LIPID PANEL, STANDARD Routine 12/17/2024 8:54 AM EDT Encounter to establish care HEMOGLOBIN A1C Routine 12/17/2024 8:54 AM EDT Encounter to establish care TSH W/REFLEX TO FT4 Routine 12/17/2024 8 :54 AM EDT Encounter to establish care COMPREHENSIVE METABOLIC PANEL Routine 12/17/2024 8:54 AM EDT Encounter to establish care CBC WITH AUTO DIFFERENTIAL Routine 12/17/2024 8:54 AM EDT Encounter to establish care POCT ANDRES-14 URINE DRUG SCREEN Routine 12/15/2024 10:17 AM EDT Uncomplicated opioid dependence (CMS/HCC) POCT ANDRES-14 URINE DRUG SCREEN Routine 12/08/2024 11:44 AM EDT Uncomplicated opioid dependence (CMS/HCC) POCT ANDRES-14 URINE DRUG SCREEN Routine 11/30/2024 2:21 PM EDT Uncomplicated opioid dependence (CMS/HCC) HM COLONOSCOPY Routine 03/22/2021 from Last 3 Months or Most Recently Relevant to Health Maintenance Results * CTA Chest PE Protocal (02/11/2025 10:04 AM EDT) Anatomical Region Laterality Modality Body, Chest Computed Tomogra phy 02/11/2025 10:0 4 AM EDT Narrative 02/11/2025 10:46 AM EDT [address] [address] [address] Scan Report Signed Patient: Aristides Yin MR#: [id number] : 1950 Acct:[id number] Age/Sex: 75 / M ADM Date: 02/11/25 Loc: .CT Attending Dr: Anupam Parada MD Ordering Physician: Anupam Parada MD Date of Service: 02/11/25 Procedure(s): CT angio chest PE protocol Accession Number(s): [id number] cc: Anupam Parada MD; Desmond Golden [employer] Report Number: [id number]: Total DLP = 96.00 mGy-cm Reason for Exam: I26.99 - Other pulmonary embolism without acute cor pulmonale EXAMINATION: CT ANGIOGRAM CHEST CLINICAL INFORMATION: Other pulmonary embolism without acute cor pulmonale. Thrombectomy 11/11/2024. COMPARISON: 11/10/2024. TECHNIQUE: Multiple axial images were obtained through the chest after the administration of 50 mL of Omnipaque 350 intravenous contrast. Extensive vascular post-processing including two-dimensional and three-dimensional reformatted images were created and reviewed on an independent workstation. This CT examination was performed using dose optimization techniques as appropriate, variously including the following: *Automated exposure control *Adjustment of mA and/or kV according to patient size (this includes techniques or standardized protocols for targeted exams where dose is matched to indication/reason for exam; i.e. extremities or head) *Use of iterative reconstruction technique FINDINGS: VASCULAR: Study quality is diagnostic. There is no evidence of pulmonary embolism. Previously seen pulmonary emboli have resolved. The main pulmonary artery is mildly prominent, unchanged. No right heart strain. No reflux of contrast into the SVC. The aorta is mildly uncoiled, mildly atheromatous, however there is no aneurysm or acute aortic syndrome. Great vessels branch normally. There are patent with mild calcification at the origins. The heart size is normal. There are moderate coronary calcifications. There is no pericardial effusion. LUNGS: Mild to moderate centrilobular emphysema is present. There are trace bilateral layering pleural effusions with associated minimal passive atelectasis. Mild reticular scarring is present in the left greater than right lower lobes, similar to the prior exam. Mild thickening of the small airways is noted. No significant mucous plugging is present. No consolidations or abnormal groundglass opacities. There is no pneumothorax. MEDIASTINUM: No lymphadenopathy or mass in the mediastinum. Partially imaged thyroid is normal. Central airways are patent. Esophagus is unremarkable. AXILLA/CHEST WALL: No abnormal lymphadenopathy or mass. There is mild bilateral male gynecomastia. UPPER ABDOMEN: Imaged upper abdominal contents appear grossly normal. OSSEOUS STRUCTURES: No suspicious lytic or blastic bone lesions are present. Moderate degenerative changes of the thoracic spine. No fractures or compression deformities. CT/CT angio chest PE protocol IMPRESSION: 1. No evidence of pulmonary embolism. Moderate prominence of the main pulmonary artery may suggest increased pulmonary pressures. 2. No evidence of aortic aneurysm or acute aortic syndrome. 3. Mild to moderate centrilobular emphysema. Trace pleural effusions with associated minimal passive atelectasis. 4. Small airway thickening, consistent with probable chronic bronchitis although improved from the prior examination. 5. Minor scarring/atelectasis in the left lower lobe. 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: Procedure Note Donotuseinterpreter, Image - 02/11/[address] [place] [address] [address] Scan Report Signed Patient: Frances Yin#: [id number] : 8Acct:[id number] Age/Sex: 75 / MADM Date: 02/11/25 Loc: HO.CT Attending Dr: Anupam Parada MD Ordering Physician: Anupam Parada MD Date of Service: 02/11/25 Procedure(s): CT angio chest PE protocol Accession Number(s): [id number] cc: Anupam Parada MD; Desmond Golden [employer] Report Number: [id number]: Total DLP = 96.00 mGy-cm Reason for Exam: I26.99 - Other pulmonary embolism without acute corpulmonale EXAMINATION: CT ANGIOGRAM CHEST CLINICAL INFORMATION: Other pulmonary embolism without acute cor pulmonale. Thrombectomy 11/11/2024. COMPARISON: 11/10/2024. TECHNIQUE: Multiple axial images were obtained through the chest after the administration of 50 mL of Omnipaque 350 intravenous contrast. Extensive vascular post-processing including two-dimensional and three-dimensional reformatted images were created and reviewed on an independent workstation. This CT examination was performed using dose optimization techniques as appropriate, variously including the following: *Automated exposure control *Adjustment of mA and/or kV according to patient size (this includes techniques or standardized protocols for targeted exams where dose is matched to indication/reason for exam; i.e. extremities or head) *Use of iterative reconstruction technique FINDINGS: VASCULAR: Study quality is diagnostic. There is no evidence of pulmonary embolism. Previously seen pulmonary emboli have resolved. The main pulmonary artery is mildly prominent, unchanged. No right heart strain. No reflux of contrast into the SVC. The aorta is mildly uncoiled, mildly atheromatous, however there is no aneurysm or acute aortic syndrome. Great vessels branch normally. There are patent with mild calcification at the origins. The heart size is normal. There are moderate coronary calcifications. There is no pericardial effusion. LUNGS: Mild to moderate centrilobular emphysema is present. There are trace bilateral layering pleural effusions with associated minimal passive atelectasis. Mild reticular scarring is present in the left greater than right lower lobes, similar to the prior exam. Mild thickening of the small airways is noted. No significant mucous plugging is present. No consolidations or abnormal groundglass opacities. There is no pneumothorax. MEDIASTINUM: No lymphadenopathy or mass in the mediastinum. Partially imaged thyroid is normal. Central airways are patent. Esophagus is unremarkable. AXILLA/CHEST WALL: No abnormal lymphadenopathy or mass. There is mild bilateral male gynecomastia. UPPER ABDOMEN: Imaged upper abdominal contents appear grossly normal. OSSEOUS STRUCTURES: No suspicious lytic or blastic bone lesions are present. Moderate degenerative changes of the thoracic spine. No fractures or compression deformities. CT/CT angio chest PE protocol IMPRESSION: 1. No evidence of pulmonary embolism. Moderate prominence of the main pulmonary artery may suggest increased pulmonary pressures. 2. No evidence of aortic aneurysm or acute aortic syndrome. 3. Mild to moderate centrilobular emphysema. Trace pleural effusions with associated minimal passive atelectasis. 4. Small airway thickening, consistent with probable chronic bronchitis although improved from the prior examination. 5. Minor scarring/atelectasis in the left lower lobe. 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: [facility] External Provider IMG CT PROCEDURES Final Result * POCT Creatinine GFR (02/11/2025 9:24 AM EDT) POCT Creatinine 0.8 0.5 - 1.4 mg/dL [facility] GFR POC >60 [facility] Comment:Chronic Kidney Disea se: Estimated GFR < 60 mL/min/1.40e5Yhtamu Kidney Disease: Estimated GFR < 15 mL/min/1.73m2 02/11/2025 9:24 AM EDT 02/11/2025 3:32 PM EDT Narrative [facility] - 02/11/2025 3:39 PM EDT [id number] Generic External Data Provider LAB POINT OF CARE TEST DOCKED DEVICE ORDERABLES Final Result [facility] [address] [place] [address] [phone] * (ABNORMAL) CBC auto differential (02/11/2025 8:13 AM EDT) Only the most recent of2 resultswithin the time period is included. White Blood Count 7.3 4.8 - 10.8 X10*3/uL [facility] Red Blood Count 4.30(L) 4.60 - 5.80 X10*6/uL [facility] Hemoglobin 12.3(L) 14.0 - 18.0 g/dl [facility] Hematocrit 36.8(L) 42.0 - 52.0 % [facility] Mean Corpuscular Volume 85.6 80.0 - 98.0 fL [facility] Mean Corpuscular Hemoglobin 28.6 27.0 - 33.0 pg [facility] Mean Corpuscular HGB Conc 33.4 31.0 - 36.0 g/dl [facility] Red Cell Distribution Width 13.2 11.0 - 16.0 % [facility] Platelet Count 183 160 - 400 X10*3/uL [facility] Mean Platelet Volume 10.2 9.4 - 12.4 fL [facility] Neutrophils Percent Auto 69.3 45 - 73 % [facility] Imm Gran Pct Auto 0.1 0.0 - 0.4 % [facility] Lymphocytes Percent Auto 18.7(L) 20 - 40 % [facility] Monocytes Percent Auto 8.9 2 - 11 % [facility] Eosinophils Percent Auto 2.3 0 - 4 % [facility] Basophils Percent Auto 0.7 0 - 2 % [facility] NRBC Pct Auto 0.0 0.0 - 0.2 /100WBC [facility] Neutrophils Absolute Auto 5.0 2.0 - 8.3 x10*3/uL [facility] Imm Gran Abs Auto 0.01 0.00 - 0.03 X10*3/uL [facility] Lymphocytes Absolute Auto 1.4 1.2 - 4.9 X10*3/uL [facility] Monocytes Absolute Auto 0.7 0.1 - 1.2 X10*3/uL [facility] Eosinophils Absolute Auto 0.2 0.0 - 0.4 X10*3/uL [facility] Basophils Absolute Auto 0.1 0.0 - 0.2 X10*3/uL [facility] NRBC Abs Auto 0.000 0.0 - 0.012 X10*3/uL [facility] 02/11/2025 8:13 AM EDT 02/11/2025 8:13 AM EDT us Generic External Data Provider LAB BLOOD ORDERAB LES Final Result Performing Organization Address City/[facility] de Phone Number [facility] [address] [place] [phone] * (ABNORMAL) Basic Metabolic Panel (02/11/2025 8:13 AM EDT) Sodium 145 135 - 145 mmol/L [facility] Potassium 3.7 3.3 - 5.1 mmol/L [facility] Chloride 107 96 - 108 mmol/L [facility] Carbon Dioxide 31(H) 22 - 29 mmol/L [facility] Anion Gap 11(L) 12 - 20 [facility] Urea Nitrogen (BUN) 17(H) 9 - 16 mg/dL [facility] Creatinine, Serum 0.93 0.5 - 1.4 mg/dL [facility] Estimated Glomerular Filt Rate >60 [facility] Comment:Chronic Kidney Disea se: Estimated GFR < 60 mL/min/1.96p5Lkuoiy Kidney Disease: Estimated GFR < 15 mL/min/1.73m2 Glucose 98 60 - 115 mg/dL [facility] Calcium 9.4 8.4 - 10.2 mg/dL [facility] 02/11/2025 8:13 AM EDT 02/11/2025 8:13 AM EDT Generic External Data Provider LAB BLOOD ORDERAB LES Final Result Performing Organization Address [facility] de Phone Number [facility] [address] [place] [phone] * (ABNORMAL) POCT ANDRES-14 Urine Drug Screen (02/02/2025 9:46 AM EDT) Only the most recent of6 resultswithin the time period is included. THC Negative Negative Cocaine Screen, Urine Negative Negative Opiate Screen, Urine Negative Negative Methamphetamine Screen Urine Negative Negative Amphetamine Screen, Urine Negative Negative Benzodiazepines Screen, Urine Negative Negative Barbiturate Screen, Urine Negative Negative Methadone Screen, Urine Negative Negative Buprenophine Screen, Urine Positive(A) Negative TCA, Urine Negative Negative MDMA Urine Negative Negative ng/mL Oxycodone Screen, Urine Negative Negative Phencyclidine (PCP), Urine Negative Negative Fentanyl, Urine Negative Negative Urine Urine specimen obtained by clean catch procedure / Unknown 02/02/2025 9:46 AM EDT us Yves Day MD POINT OF CARE TEST ENTER/EDIT ORDERABLES Final Result * Syphilis Screen (12/17/2024 8:54 AM EDT) Syphilis Screen Nonreactive Nonreactive [facility] 12/17/2024 8:54 AM EDT 12/17/2024 10:54 AM EDT us Yves Day MD LAB BLOOD ORDERABLES Final Res ult Performing Organization Address City/State/[facility] Co de Phone Number [facility] [address] [place] [phone] * T-SPOT??.TB (12/17/2024 8:54 AM EDT) T Spot TB Negative Negative [facility] Comment:A negative test resu lt does not exclude the possibilityof exposure to or infection with Mycobacteriumtuberculosis (M. tuberculosis). Patients with recentexposure to TB infected individuals exhibiting anegative T-SPOT.TB result should be considered forretesting within 6 weeks or if other relevant clinicalsymptoms indicate. Results from T-SPOT.TB testing mustbe used in conjunction with each individual'sepidemiological history, current medical status,and results of other diagnostic evaluations.The T-SPOT.TB test is qualitative and results arereported as positive, borderline, or negative, giventhat the test controls perform as expected. In linewith the Centers for Disease Control and Prevention's2010 recommendation to report quantitative measurementsalongside the qualitative result, the laboratoryprovides spot counts for informational purposes only.The T-SPOT.TB test should not be interpreted as aquantitative test. TS PANEL A 1 [facility] TS PANEL B 2 [facility] Negative Control Passed [facility] Positive Control Passed [facility] Comment:For additional infor mation, please refer tohttp://Healthiest [email or web address]/faq/ZFW905(This link is being provided for informational/educational purposes only.)THIS TEST WAS PERFORMED AT:[id number] [place] [address]NJLOBLPDONTRELL BOYKIN MD,PHD 12/17/2024 8:54 AM EDT 12/17/2024 10:54 AM EDT Yves Day MD LAB BLOOD ORDERABLES Final Res ult Performing Organization Address [facility] [place]/[facility]/ZIP Co de Phone Number [facility] [address] [place] [phone] * TSH W/Reflex to FT4 (12/17/2024 8:54 AM EDT) Pathologist [facility] TSH reflex Free T4 1.96 0.32 - 4.0 uIU/mL [facility] Blood Venous blood specimen / Unknown 12/17/2024 8:54 AM EDT 12/17/2024 10:54 AM EDT Desmond Golden CNP LAB BLOOD ORDERABLES Kaye l Result Performing Organization Address [facility] [place]/[facility] Co de Phone Number [facility] [address] [place] [phone] * Hepatitis C Viral RNA, Quantitative, Real-Time PCR (12/17/2024 8:54 AM EDT) Pathologist [facility] Hepatitis C Viral Load <15 NOT DETECTED NOT DETECTED IU/mL [facility] HCV Log PCR <1.18 NOT DETECTED NOT DETECTED Log IU/mL [facility] Comment:For additional infor mation, please refer tohttp://Healthiest [email or web address]/faq/KKT41t7(This link is being provided for informational/educational purposes only.)THIS TEST WAS PERFORMED AT:[facility] [id number] [place] [phone] PHAM MD 12/17/2024 8:54 AM EDT 12/18/2024 3:11 PM EDT [facility] LAB BLOOD ORDERABLES Kaye l Result Performing Organization Address [facility] [place]/[facility]/ZIP Co de Phone Number [facility] [address] [place] [phone] * Albumin, Random Urine W/Creatinine (12/17/2024 8:54 AM EDT) Creatinine, Urine 138.27 mg/dL [facility] Microalbumin Urine <5.0 mg/L [facility] Microalbum Creatinine Ratio Ur TNP <30 ug/mg cr [facility] Comment:Unable to calculate albumin/creatinine ratio due to lowmicroalbumin or creatinine result. Urine (Urine, Random) 12/17/2024 8:54 AM EDT 12/17/2024 10:57 AM EDT Result [facility] LAB URINE ORDERABLES Kaye l Result Performing Organization Address [facility] Phone Number [facility] [address] [place] [phone] * (ABNORMAL) Hepatitis C Antibody with Reflex to HCV, RNA, Quantitative, Real- Time PCR (12/17/2024 8:54 AM EDT) Hepatitis C Antibody Reactive( A) Nonreactive [facility] Comment:Presumptive evidence of antibodies to HCV. 12/17/2024 8:54 AM EDT 12/17/2024 10:54 AM EDT Yves Day MD LAB BLOOD ORDERABLES Final Res ult Performing Organization Address [facility] [place]/[facility] Co de Phone Number [facility] [address] [place] [phone] * Hepatitis A Antibody, Total (12/17/2024 8:54 AM EDT) Hepatitis A Antibody IgG REACTIVE Nonreactive [facility] Comment:The presence of IgG anti-HAV implies past HAV infection(recent or distant) or vaccination against HAV. 12/17/2024 8:54 AM EDT 12/17/2024 10:54 AM EDT Yves Day MD LAB BLOOD ORDERABLES Final Res ult Performing Organization Address [facility] [place]/[facility]/ZIP Co de Phone Number [facility] [address] [place] [phone] * HIV-1/2 Antigen and Antibodies, Fourth Generation, with Reflexes (12/17/2024 8:54 AM EDT) HIV AB/AG Nonreactive Nonreactive [facility] Comment:HIV-1 p24 Ag and/or HIV-1/HIV-2 Ab not detected.A test result that is nonreactive does not exclude thepossibility of exposure to or infection with HIV-1 and/orHIV-2. Nonreactive results in this assay for individualswith prior exposure to HIV-1 and/or HIV-2 may be due toantigen and antibody levels that are below the limit ofdetection of this assay.The [email or web address] HIV Ag/Ab Combo assay result andsupplemental assay results should be interpreted inconjunction with the patient's clinical presentation,history and other laboratory results. If the results areinconsistent with clinical evidence, additional testing issuggested to confirm the result. 12/17/2024 8:54 AM EDT 12/17/2024 10:54 AM EDT Yves Day MD LAB BLOOD ORDERABLES Final Res ult Performing Organization Address [facility] [place]/[facility]/ZIP Co de Phone Number [facility] [address] [place] [phone] * Hemoglobin A1c (12/17/2024 8:54 AM EDT) Hemoglobin A1c 5.4 <6.0 % [facility] Comment:Hemoglobin A1C Refer ence Range Adults: 4.8 - 6.0 % Non diabetic: < 6.0 % Goal: < 7.0 %Additional Action Suggested: > 8.0 %Note: Hemoglobin A1c results are invalid for patients with abnormal amounts of HbF. Blood transfusions may impact the HbA1c concentration in the patient sample. Estimated Average Glucose 108 mg/dL [facility] Comment:eAG = Estimated ave rage glucose which is %A1C expressed asaverage glucose, using the formula of the [id number] Glucose study (ADAG), Diabetes Care, Vol.31,#8,Dec. 2007 Blood Venous blood specimen / Unknown 12/17/2024 8:54 AM EDT 12/17/2024 10:54 AM EDT Desmond Golden CNP LAB BLOOD ORDERABLES Kaye l Result [facility] [address] [place] [phone] * Hepatic Function Panel (12/17/2024 8:54 AM EDT) Bilirubin, Direct 0.2 0.0 - 0.5 mg/dL [facility] 12/17/2024 8:54 AM EDT 12/17/2024 10:54 AM EDT Yves Day MD LAB BLOOD ORDERABLES Final Res ult [facility] [address] [place] [phone] * Lipid Panel, Standard (12/17/2024 8:54 AM EDT) Triglycerides 52 <150 mg/dL [facility] Comment:Desirable Triglyceri de: less than 150 mg/dLBorderline High Triglyceride 150-199 mg/dLHigh Triglyceride: 200-499 mg/dLVery High Triglyceride: greater than or equal to 5OO mg/dL Cholesterol 101 <200 mg/dL [facility] Comment:Desirable Cholestero l: less than 200 mg/dLBorderline High Cholesterol: 200-239 mg/dLHigh Cholesterol: greater than 239 mg/dL LDL Cholesterol Calculated 48 <100 mg/dL [facility] Comment:Desirable LDL: less than 100 mg/dLNear Optimal/Above Optimal LDL: 110- 129 mg/dLBorderline High LDL: 130-159 mg/dLHigh LDL: 160-189 mg/dLVery High LDL: greater than or equal to 190 mg/dL HDL Cholesterol 43 >40 mg/dL [facility] Comment:Desirable HDL: great er than 40 mg/dL Note: This HDL assay may give artificially low results in patients with liver disease. Blood Venous blood specimen / Unknown 12/17/2024 8:54 AM EDT 12/17/2024 10:54 AM EDT [facility] LAB BLOOD ORDERABLES Kaye l Result [facility] [address] [place] [phone] * (ABNORMAL) Comprehensive Metabolic Panel (12/17/2024 8:54 AM EDT) Sodium 144 135 - 145 mmol/L [facility] Potassium 3.6 3.3 - 5.1 mmol/L [facility] Comment:Slight Hemolysis.Int erpret result with caution. Chloride 105 96 - 108 mmol/L [facility] Carbon Dioxide 29 22 - 29 mmol/L [facility] Anion Gap 14 12 - 20 [facility] Urea Nitrogen (BUN) 17(H) 9 - 16 mg/dL [facility] Creatinine, Serum 1.12 0.5 - 1.4 mg/dL [facility] Estimated Glomerular Filt Rate >60 [facility] Comment:Chronic Kidney Disea se: Estimated GFR < 60 mL/min/1.17m5Yvtyrp Kidney Disease: Estimated GFR < 15 mL/min/1.73m2 Glucose 91 60 - 115 mg/dL [facility] Calcium 9.0 8.4 - 10.2 mg/dL [facility] Bilirubin, Total 0.7 0.0 - 1.0 mg/dL [facility] Aspartate Amino Transferase 33 5 - 37 U/L [facility] Comment:Slight Hemolysis.Int erpret result with caution. Alanine Aminotransferase 20 0 - 40 U/L [facility] Total Protein 6.6 6.5 - 8.0 g/dL [facility] Albumin Level 4.0 3.5 - 5.0 g/dL [facility] Alkaline Phosphatase 126(H) 39 - 117 U/L [facility] Blood Venous blood specimen / Unknown 12/17/2024 8:54 AM EDT 12/17/2024 10:54 AM EDT [facility] LAB BLOOD ORDERABLES Kaye l Result [facility] [address] [place] [phone] * Colonoscopy (03/22/2021) Colonoscopy Normal Normal 03/22/2021 Narrative Janis Kebede - 03/22/2021 12:55 PM EDT Recommended 10 year follow up Historical Provider HEALTH MAINTENANCE Final Result from Last 3 Months or Most Recently Relevant to Health Maintenance Insurance MEDICARE ADVANTAGE Care Teams Global Cmo Relationship Specialty Start Date End Date Desmond Golden CNP PCP - General Family Medicine 12/16/24
--- OUTSIDE RECORDS SUMMARY | 2025-02-24 07:43 | XMS_ITS | Encounter Summary ---
Author Organization [employer] Address [address] [place] [address] [address] [place] [address] Care Team Providers Care Warehouse Distribution Manager Name Role Phone Name, Angel SANCHEZ Primary Care Provider [phone] Desmond Golden CNP Primary Care Provider [phone] Encounter Details Date Type Department Care Team (Late st Contact Info) Description 09/28/2022 Abstract [facility] [address] [place] [address] [phone] Name, MD Angel [address] [place] [phone] Social History Tobacco Use Types Packs/Day Years [...] Description 03/16/2025 10:15 AM EDT Office Visit [facility] [address] [place] [address] [phone] Yves Day MD [address] [place] [address] [phone] documented as of this encounter Procedures Procedure Name Priority Date/Time Associated Diagnosis Comments COLONOSCOPY Routine 03/22/2021 documented in this encounter Results * Colonoscopy (03/22/2021) Colonoscopy Normal Normal 03/22/2021 Narrative Janis Kebede - 03/22/2021 12:55 PM EDT Recommended 10 year follow up us Historical Provider HEALTH MAINTENANCE Final Result documented in this encounter Visit Diagnoses Not on filedocumented in this encounter Care Teams Warehouse Distribution Manager Relationship Specialty Start Date End Date Name, MD Angel [address] [place] [address] PCP - General Family Medicine 06/11/18 11/19/23 Desmond Golden CNP [address] [place] [address] PCP - General Family Medicine 12/16/24 documented as of this encounter
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
--- NOTE | 2025-02-24 08:01 | PFT_ITS ---
Flows: FEV1: 59 % of predicted at 1.64 L FVC: 100 % of predicted at 3.71 L FEV1/FVC: 44 % Bronchodilator response: Absent Volumes: Total lung capacity: 90 % of predicted at 5.96 L Residual volume: 98 % of predicted at 2.49 L Slow vital capacity: 89 % of predicted at 3.47 L Expiratory reserve volume: 150 % of predicted at 1.67 L Diffusion capacity: Severely decreased Impression: Moderate obstructive ventilatory defect with no bronchodilator response. Decreased diffusion capacity suggests emphysema. MTDD
[2025-02-24 08:49] VITALS: PULSE 82; O2SAT 96
== END 2025-02-24 07:42 | disposition home or self-care (01) ==
LOC: HO.RESP 07:41
PROVIDERS: Visit Provider Hospitalist
DX: I26.99 Other pulmonary embolism without acute cor pulmonale (principal)
CPT/HCPCS: 94010; 94640; 94727; 94729

== ENCOUNTER → 2025-02-24 08:01 | Outpatient (BNV) | payer MEDICARE, SELFPAY | PROVIDERS: Visit Provider Internal Medicine Pulmonary Disease | DX: J98.4 Other disorders of lung (principal) | CPT/HCPCS: 94060; 94727; 94729 ==

== ENCOUNTER 2025-03-05 09:36 | Outpatient (AMB) | payer MEDICARE, SELFPAY ==
[2025-03-05 09:38] VITALS: BP 126/80; PULSE 80; O2SAT 95; BMI 25.4
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
--- OUTSIDE RECORDS SUMMARY | 2025-03-05 10:56 | XMS_ITS | Encounter Summary ---
Author Organization [employer] Address [address] [place] [address] Care Team Providers Care Billing Machine Operator Name Role Phone Demsond Golden CNP Primary Care Provider [phone] Reason for Visit * Reason Onset Date Comments Prior Auth Prescription 01/01/2025 Encounter Details Date Type Department Care Team (Late st Contact Info) Description 01/01/2025 Telephone [facility] [address] [place] [address] Desmond Golden CNP [address] [place] [address] Prior Auth Prescription Social History Tobacco Use [...] is covered by insurance. Per conv with [facility] pharmacy/Ed, rx filled 12/16/24 and no PA is needed. Sand Operator called pt, s/w daughter Mckenna who confirmed pt received spiriva on 12/16 and stated pt still needs albuterol nebulizer solution prescribed in [place]. Sand Operator advised pt to contact pcp office to request rx. Mckenna verbalized understanding and agreed to call pcp office. Sending to team nurses for assistance with pt req for rx nebulizer solution. Thank you * Telephone Encounter - Rea Quintana - 01/01/2025 11:14 AM EDT Tc from pt needing a PA for tiotropium (Spiriva HandiHaler) 18 MCG inhalation capsule Contact pt at [phone] documented in this encounter Plan of Treatment Upcoming Encounters Date Type Department Care Team (Late st Contact Info) Description 03/16/2025 10:15 AM EDT Office Visit [facility] [address] [place] [address] Yves Day MD [address] [place] [address] documented as of this encounter Visit Diagnoses Not on filedocumented in this encounter Additional Health Concerns Assessment Noted Time PHQ-9 Depression Total Score: 6 12/17/19 25 3:26 PM EDT documented as of this encounter Care Teams Billing Machine Operator Relationship Specialty Start Date End Date Desmond Golden CNP PCP - General Family Medicine 12/16/24 documented as of this encounter
--- OUTSIDE RECORDS SUMMARY | 2025-03-05 10:56 | XMS_ITS | Encounter Summary ---
Author Organization [employer] Address [address] [place] [address] [address] [place] [address] Care Team Providers Care Agricultural Research Director Name Role Phone Name, Angel SANCHEZ Primary Care Provider Desmond Golden CNP Primary Care Provider [phone] Encounter Details Date Type Department Care Team (Late st Contact Info) Description 09/28/2022 Abstract [facility] [address] [place] [address] [phone] Name, MD Angel [address] [place] [phone] Social History Tobacco Use Types Packs/Day Years [...] Description 03/16/2025 10:15 AM EDT Office Visit [facility] [address] [place] [address] [phone] Yves Day MD [address] [place] [address] [phone] documented as of this encounter Procedures Procedure Name Priority Date/Time Associated Diagnosis Comments COLONOSCOPY Routine 03/22/2021 documented in this encounter Results * Colonoscopy (03/22/2021) Colonoscopy Normal Normal 03/22/2021 Narrative Janis Kebede - 03/22/2021 12:55 PM EDT Recommended 10 year follow up us Historical Provider HEALTH MAINTENANCE Final Result documented in this encounter Visit Diagnoses Not on filedocumented in this encounter Care Teams Agricultural Research Director Relationship Specialty Start Date End Date Name, MD Angel [address] [place] [address] PCP - General Family Medicine 06/11/18 11/19/23 Desmond Golden CNP [address] [place] [address] PCP - General Family Medicine 12/16/24 documented as of this encounter
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
--- OUTSIDE RECORDS SUMMARY | 2025-03-05 10:56 | XMS_ITS | Clinical Summary ---
Author Organization [employer] Address [address] [facility] [address] [place] [address] Care Team Providers Care Meter Inspector Name Role Phone Desmond Golden SHORTY Primary Care Provider [phone] Allergies Active Allergy Reactions Criticality Noted Date [...] TABLET BY MOUTH EVERY DAY 30 tablet 12/18/19 25 Active famotidine (Pepcid) 10 MG tablet Take 20 mg by mouth Once per day. Active cetirizine (ZyrTEC) 10 MG tablet Take 1 tablet by mouth at bed time. 03/28/20 21 Active tamsulosin (Flomax) 0.4 MG 24 hr capsule TAKE 1 CAPSULE BY MOUTH EVERY DAY 30 capsule 3 01/16/20 25 Active sennosides (Senokot) 8.6 MG tablet 1 [...] obstructive pulmonary disease, unspecified COPD type (CMS/HCC) ([facility]) TAKE 3 ML BY NEBULIZATION EVERY 4 HOURS NEEDED FOR WHEEZING 75 mL 02/16/20 25 Active triamcinolone (Kenalog) 0.1 % creamIndicatio ns:Venous stasis dermatitis Apply topically if needed in the morning and at bedtime (pain and swelling). 30 g 2 02/18/20 25 Active Diclofenac Sodium 1 % gelIndications :Other chronic pain Apply to affected areas twice daily for pain relief. 50 g 02/18/20 25 Active Misc. Devices (Pulse Oximeter) miscIndication s:Chronic obstructive pulmonary disease, unspecified COPD type (CMS/HCC) ([facility]),Pleural effusion,On home oxygen therapy Use device to check oxygen saturation daily. 1 each 02/18/20 25 Active Buprenorphine HCl-Naloxone HCl (Suboxone) 8-2 MG SL filmIndication s:Opioid dependence in remission (CMS/HCC) (HCC) Place 1 Film under the tongue Once per day for 28 days. 28 Film 03/02/20 25 2024 Active albuterol (2.5 MG/3ML) 0.083% nebulizer solutionIndica tions:Chronic obstructive pulmonary disease, unspecified COPD type (CMS/HCC) ([facility]) Take 3 mL (2.5 mg) by nebulization every 4 (four) hours if needed for wheezing. 75 mL 01/02/20 25 2024 Discontinued(R eorder (will not trigger notification to Pharmacy)) Buprenorphine HCl-Naloxone HCl (Suboxone) 8-2 MG SL filmIndication s:Opioid dependence in remission (CMS/HCC) ([facility]) Place 1 Film under the tongue Once per day for 28 days. 28 Film 01/30/20 25 2024 Discontinued(R eorder (will not trigger notification to Pharmacy)) triamcinolone (Kenalog) 0.1 % creamIndicatio ns:Venous stasis dermatitis Apply topically if needed in the morning and at bedtime (pain and swelling). 30 g 2 02/18/20 25 2024 Discontinued acetaminophen (Tylenol Extra Strength) 500 MG tabletIndicati ons:Chronic migraine w/o aura w/o status migrainosus, not intractable Take 1 tablet (500 mg) by mouth every 6 (six) hours if needed for headaches for up to 10 days. 30 tablet 02/18/20 25 2024 Active Problems Problem Noted Date Diagnosed Date Heroin dependence ([facility]) 02/17/2025 Overview (02/17/2025): last use 1 year [...] by Discern Expert Opioid dependence in remission ([facility]) 019 Hypertensive disorder 06/11/2018 Illiteracy 06/11/2018 Helicobacter pylori infection 12/25/2016 Overview (12/16/2024): Upper GI endoscopy and biopsy 12/05/2016@[facility]. History of colonoscopy 02/23/2015 Overview (12/16/2024): Screening colonoscopy 02/14/2015, [facility], Dr. Pablo Grider, negative examination with suboptimal prep. 12/05/2016: Colonoscopy@[facility]; small tubular adenoma of the transverse colon. [...] of skull and face 06/26 Drug withdrawal ([facility]/HCC) 06/26/2005 Hepatitis C carrier ([facility]) 06/26/2005 Assessment & Plan (12/17/2024 5:37 PM EDT): Hep C testing ordered by [facility] program Will await HCV RNA results Tobacco use disorder 06/26/2005 Resolved Problems Problem Noted Date Diagnosed Date Resolved Date Acute hypoxic respiratory failure ([facility]/HCC) 11/30/2024 12/17/2024 Encounters Date Type Department Care Team Description 03/01/2025 Refill [facility] [address] [place], [place] [phone] Nany Segundo RN Opioid dependence in remission ([facility]/HCC) (HCC) 02/17/2025 9:45 AM EDT Office Visit [facility] [address] [place] [address] Desmond Golden CNP Transaminitis (Primary Dx); Encounter to establish care; Deep vein thrombosis (DVT) of tibial vein of left lower extremity, unspecified chronicity ([facility]); Venous stasis dermatitis; Seborrheic keratosis; Chronic migraine w/o aura w/o status migrainosus, not intractable; Other chronic pain; Chronic obstructive pulmonary disease, unspecified COPD type ([facility]) ([facility]); Pleural effusion; On home oxygen therapy; Encounter for immunization 02/17/2025 Travel 02/17/2025 Telephone [facility] [address] [place] [address] Desmond Golden CNP chat prep 02/16/2025 9:30 AM EDT Clinical Support [facility] [address] [place] [address] Nany Segundo RN Opioid dependence in remission ([facility]) (Primary Dx) 02/16/2025 Travel 02/15/2025 Refill [facility] [address] [place] [address] Desmond Golden CNP Chronic obstructive pulmonary disease, unspecified COPD type ([facility]/HCC) 02/11/2025 Orders Only GENERIC EXTERNAL DATA DEPARTMENT Provider, Generic External Data 02/10/2025 Refill [facility] [address] [place] [address] Nany Segundo RN Opioid dependence in remission ([facility]/HCC) 02/02/2025 10:45 AM EDT Clinical Support [facility] [address] [place] [phone] Nany Segundo RN Opioid type dependence, continuous ([facility]/HCC) (Primary Dx) 02/02/2025 Telephone [facility] [address] [place] [phone] Yves Day MD 02/02/2025 Telephone [facility] [address] [place] [phone] Yves Day MD 02/02/2025 Travel 01/26/2025 Refill [facility] [address] [place] [phone] Nany Segundo RN Opioid dependence in remission ([facility]/HCC) 01/26/2025 Refill [facility] [address] [place] [phone] Nany Segundo RN 01/19/2025 9:30 AM EDT Clinical Support [address] [address] Nany Segundo RN Uncomplicated opioid dependence ([facility]/HCC) (Primary Dx) 01/19/2025 Travel 01/15/2025 Refill [facility] [address] [place] [address] Desmond Golden CNP 01/13/2025 Refill [facility] [address] [place] [address] Nany Segundo RN Opioid dependence in remission ([facility]/HCC) 01/05/2025 9:30 AM EDT Clinical Support [facility] [address] [place] [phone] Nany Segundo RN Uncomplicated opioid dependence ([facility]) (Primary Dx) 01/05/2025 Travel 01/01/2025 Telephone [facility] [address] [place] [address] Desmond Golden CNP Prior Auth Prescription 01/01/2025 Telephone [facility] [address] [place] [address] Desmond Golden CNP Med Refill 01/01/2025 Refill [facility] [address] [place] [address] Nany Segundo RN Opioid dependence in remission ([facility]/HCC) 12/30/2024 Orders Only [facility] [address] [place] [phone] Desmond Golden CNP Chronic obstructive pulmonary disease, unspecified COPD type ([facility]) (Primary Dx) 12/30/2024 Orders Only [facility] [address] [place] [phone] Desmond Golden CNP Deformity of toe of left foot (Primary Dx) 12/29/2024 Refill [facility] [address] [place] [address] Nany Segundo RN Opioid dependence in remission ([facility]) 12/28/2024 Telephone [facility] [address] [place] [address] Desmond Golden CNP Referral 12/22/2024 10:00 AM EDT Office Visit [address] [address] Yves Day MD Opioid dependence in remission ([facility]) (Primary Dx); Uncomplicated opioid dependence ([facility]/HCC) 12/22/2024 Travel 12/17/2024 Orders Only [facility] [address] [place] [address] Yves Day MD 12/17/2024 Refill [facility] [address] [place] [phone] Nany Segundo RN Uncomplicated opioid dependence ([facility]) 12/16/2024 2:45 PM EDT Office Visit [address] [address] Desmond Golden CNP Encounter to establish care (Primary Dx); Gastroesophageal reflux disease without esophagitis; Pleural effusion; Acute hypoxic respiratory failure ([facility]); Chronic obstructive pulmonary disease, unspecified COPD type ([facility]); Pulmonary embolism, unspecified chronicity, unspecified pulmonary embolism type, unspecified whether acute cor pulmonale present ([facility]); Deep vein thrombosis (DVT) of tibial vein of left lower extremity, unspecified chronicity ([facility]); On home oxygen therapy; Allergy, initial encounter; Hepatitis C carrier ([facility]) 12/16/[address] [address] Desmond Golden CNP Encounter to establish care 12/16/2024 Travel 12/15/2024 11:00 AM EDT Clinical Support [address] [address] aNny Segundo RN Uncomplicated opioid dependence ([facility]) (Primary Dx) 12/15/2024 Patient Outreach [address] [address] Devendra Oliveros [facility]orts 12/15/2024 Patient Outreach [address] [address] Devendra Oliveros [facility] 12/15/2024 Patient Outreach [address] [address] Devendra Oliveros [facility] 12/15/[address] [address] Nany Segundo RN Uncomplicated opioid dependence ([facility]) (Primary Dx) 12/15/2024 Patient Outreach [address] [address] Devendra Oliveros [facility] 12/15/2024 Travel 12/09/2024 Patient Outreach [facility] [address], [place] [phone] Desmond Golden CNP Pre-visit Planning (SDOH unable to complete. ) 12/08/2024 11:00 AM EDT Office Visit [address] [address] Yves Day MD Uncomplicated opioid dependence (CMS/HCC) (Primary Dx); Opioid use disorder in remission 12/08/2024 Patient Outreach [facility] [address] [place] [address] Eleno Pineda 12/08/2024 Travel from Last 3 Months Immunizations Immunization [...] Description 03/16/2025 10:15 AM EDT Office Visit [facility] [address] [place] [address] Yves Day MD [address] [place] [address] Health Maintenance Due Date Last Done Comments [...] 11:44 AM EDT Uncomplicated opioid dependence (CMS/HCC) HM COLONOSCOPY Routine 03/22/2021 from Last 3 Months or Most Recently Relevant to Health Maintenance Results * CTA Chest PE Protocal (02/11/2025 10:04 AM EDT) Anatomical Region Laterality Modality Body, Chest Computed Tomogra phy 02/11/2025 10:0 4 AM EDT Narrative 02/11/2025 10:46 AM EDT [place] [address] [address] Scan Report Signed Patient: Aristides Yin MR#: [id number] 746 : 1950 Acct:[id number] Age/Sex: 75 / M ADM Date: 02/11/25 Loc: HO.CT Attending Dr: Anupam Parada MD Ordering Physician: Anupam Parada MD Date of Service: 02/11/25 Procedure(s): CT angio chest PE protocol Accession Number(s): [id number] cc: Anupam Parada MD; Desmond Golden CHIEF SPECIALIST [employer] Report Number: [id number]: Total DLP = 96.00 mGy-cm Reason for [...] Brian Medina MD 02/11/2025 10:44 AM EDT Dictated By: Brian Medina MD Signed By: <Electronically signed by Brian Medina MD in OV> 02/11/25 1044 DD/ 1004 TD/TT: 02/11/25 1028 Party Plan Dealer: Procedure Note Donotuseinterpreter, Image - 02/11/[address] [address] [address] Scan Report Signed Patient: Frances Yin#: [id number] : 8Acct:[id number] Age/Sex: 75 / MADM Date: 02/11/25 Loc: HO.CT Attending Dr: Anupam Parada MD Ordering Physician: Anupam Parada MD Date of Service: 02/11/25 Procedure(s): CT angio chest PE protocol Accession Number(s): [id number] cc: Anupam Parada MD; Desmond Golden CHIEF SPECIALIST [employer] Report Number: [id number]: Total DLP = 96.00 mGy-cm Reason for [...] Brian Medina MD 02/11/2025 10:44 AM EDT Dictated By: Brian Medina MD Signed By: <Electronically signed by Brian Medina MD in OV> 02/11/25 1044 DD/ 1004 TD/TT: 02/11/25 1028 Party Plan Dealer: [facility] External Provider IMG CT PROCEDURES Final Result * POCT Creatinine GFR (02/11/2025 9:24 AM EDT) [facility] POCT Creatinine 0.8 0.5 - 1.4 mg/dL [facility] GFR POC >60 [facility] Comment:Chronic Kidney Disea se: Estimated GFR < 60 mL/min/1.44u5Hyelgz Kidney Disease: Estimated GFR < 15 mL/min/1.73m2 02/11/2025 9:24 AM EDT 02/11/2025 3:32 PM EDT Narrative [facility] - 02/11/2025 3:39 PM EDT [id number] Generic External Data Provider LAB POINT OF CARE TEST DOCKED DEVICE ORDERABLES Final Result Performing Organization Address City/State/[facility] Co de Phone Number [facility] [address] [place] [phone] * (ABNORMAL) CBC auto differential (02/11/2025 8:13 AM EDT) Only the most recent of2 resultswithin the time period is included. [facility] White Blood Count 7.3 4.8 - 10.8 X10*3/uL [facility] Red Blood Count 4.30(L) 4.60 - 5.80 X10*6/uL [facility] Hemoglobin 12.3(L) 14.0 - 18.0 g/dl [facility] Hematocrit 36.8(L) 42.0 - 52.0 % [facility] Mean Corpuscular Volume 85.6 80.0 - 98.0 fL [facility] Mean Corpuscular Hemoglobin 28.6 27.0 - 33.0 pg [facility] Mean Corpuscular HGB Conc 33.4 31.0 - 36.0 g/dl [facility] Red Cell Distribution Width 13.2 11.0 - 16.0 % [facility] Platelet Count 183 160 - 400 X10*3/uL [facility] Mean Platelet Volume 10.2 9.4 - 12.4 fL [facility] Neutrophils Percent Auto 69.3 45 - 73 % [facility] Imm Gran Pct Auto 0.1 0.0 - 0.4 % [facility] Lymphocytes Percent Auto 18.7(L) 20 - 40 % [facility] Monocytes Percent Auto 8.9 2 - 11 % [facility] Eosinophils Percent Auto 2.3 0 - 4 % [facility] Basophils Percent Auto 0.7 0 - 2 % [facility] NRBC Pct Auto 0.0 0.0 - 0.2 /100WBC [facility] Neutrophils Absolute Auto 5.0 2.0 - 8.3 x10*3/uL [facility] Imm Gran Abs Auto 0.01 0.00 - 0.03 X10*3/uL [facility] Lymphocytes Absolute Auto 1.4 1.2 - 4.9 X10*3/uL [facility] Monocytes Absolute Auto 0.7 0.1 - 1.2 X10*3/uL [facility] Eosinophils Absolute Auto 0.2 0.0 - 0.4 X10*3/uL [facility] Basophils Absolute Auto 0.1 0.0 - 0.2 X10*3/uL [facility] NRBC Abs Auto 0.000 0.0 - 0.012 X10*3/uL [facility] 02/11/2025 8:13 AM EDT 02/11/2025 8:13 AM EDT us Generic External Data Provider LAB BLOOD ORDERAB LES Final Result [facility] [address] [place] [address] [phone] * (ABNORMAL) Basic Metabolic Panel (02/11/2025 8:13 AM EDT) Sodium 145 135 - 145 mmol/L [facility] Potassium 3.7 3.3 - 5.1 mmol/L [facility] Chloride 107 96 - 108 mmol/L [facility] Carbon Dioxide 31(H) 22 - 29 mmol/L [facility] Anion Gap 11(L) 12 - 20 [facility] Urea Nitrogen (BUN) 17(H) 9 - 16 mg/dL [facility] Creatinine, Serum 0.93 0.5 - 1.4 mg/dL [facility] Estimated Glomerular Filt Rate >60 [facility] Comment:Chronic Kidney Disea se: Estimated GFR < 60 mL/min/1.80q4Yebkbc Kidney Disease: Estimated GFR < 15 mL/min/1.73m2 Glucose 98 60 - 115 mg/dL [facility] Calcium 9.4 8.4 - 10.2 mg/dL [facility] 02/11/2025 8:13 AM EDT 02/11/2025 8:13 AM EDT us Generic External Data Provider LAB BLOOD ORDERAB LES Final Result [facility] [address] [place] [phone] * (ABNORMAL) POCT ANDRES-14 Urine Drug Screen (02/02/2025 9:46 AM EDT) Only the most recent of5 resultswithin the time period is included. THC [...] 8:54 AM EDT) Syphilis Screen Nonreactive Nonreactive [facility] 12/17/2024 8:54 AM EDT 12/17/2024 10:54 AM EDT us Yves Day MD LAB BLOOD ORDERABLES Final Res ult [facility] [address] [place] [phone] * T-SPOT??.TB (12/17/2024 8:54 AM EDT) T Spot TB Negative Negative [facility] Comment:A negative test resu lt does [...] as aquantitative test. TS PANEL A 1 [facility] TS PANEL B 2 [facility] Negative Control Passed [facility] Positive Control Passed [facility] Comment:For additional infor matcourtney, please refer tohttp://education.Nekted/faq/UCE304(This link is being provided for informational/educational purposes only.)THIS TEST WAS PERFORMED AT:[facility] [id number] [place] [address]KYWHUVTDONTRELL BOYKIN MD,PHD 12/17/2024 8:54 AM EDT 12/17/2024 10:54 AM EDT Yves Day MD LAB BLOOD ORDERABLES Final Res ult Performing Organization Address [facility] Co de Phone Number [facility] [address] [place] [phone] * TSH W/Reflex to FT4 (12/17/2024 8:54 AM EDT) Pathologist [facility] TSH reflex Free T4 1.96 0.32 - 4.0 uIU/mL [facility] Blood Venous blood specimen / Unknown 12/17/2024 8:54 AM EDT 12/17/2024 10:54 AM EDT [facility] LAB BLOOD ORDERABLES Kaye l Result Performing Organization Address [facility] Co de Phone Number [facility] [address] [place] [phone] * Hepatitis C Viral RNA, Quantitative, Real-Time PCR (12/17/2024 8:54 AM EDT) [facility] Hepatitis C Viral Load <15 NOT DETECTED NOT DETECTED IU/mL [facility] HCV Log PCR <1.18 NOT DETECTED NOT DETECTED Log IU/mL [facility] Comment:For additional infor cristian, please refer tohttp://education.Nekted/faq/SEF35v0(This link is being provided for informational/educational purposes only.)THIS TEST WAS PERFORMED AT:[employer] [place] [id number] PHAM MD 12/17/2024 8:54 AM EDT 12/18/2024 3:11 PM EDT [facility] DOPER OPERATOR LAB BLOOD ORDERABLES Kaye l Result Performing Organization Address City/[facility]/ZIP Co de Phone Number [facility] [address] [place] [address] [phone] * Albumin, Random Urine W/Creatinine (12/17/2024 8:54 AM EDT) Creatinine, Urine 138.27 mg/dL [facility] Microalbumin Urine <5.0 mg/L [facility] Microalbum Creatinine Ratio Ur TNP <30 ug/mg cr [facility] Comment:Unable to calculate albumin/creatinine ratio due to lowmicroalbumin or creatinine result. Urine (Urine, Random) 12/17/2024 8:54 AM EDT 12/17/2024 10:57 AM EDT Desmond Golden CNP LAB URINE ORDERABLES Kaye l Result Performing Organization Address [facility] Co de Phone Number [facility] [address] [place] [phone] * (ABNORMAL) Hepatitis C Antibody with Reflex to HCV, RNA, Quantitative, Real- Time PCR (12/17/2024 8:54 AM EDT) Hepatitis C Antibody Reactive( A) Nonreactive [facility] Comment:Presumptive evidence of antibodies to HCV. 12/17/2024 8:54 AM EDT 12/17/2024 10:54 AM EDT Yves Day MD LAB BLOOD ORDERABLES Final Res ult Performing Organization Address [facility]/ZIP Co de Phone Number [facility] [address] [place] [phone] * Hepatitis A Antibody, Total (12/17/2024 8:54 AM EDT) Hepatitis A Antibody IgG REACTIVE Nonreactive [facility] Comment:The presence of IgG anti-HAV implies past HAV infection(recent or distant) or vaccination against HAV. 12/17/2024 8:54 AM EDT 12/17/2024 10:54 AM EDT Yves Day MD LAB BLOOD ORDERABLES Final Res ult Performing Organization Address [facility] de Phone Number [facility] [address] [place] [phone] * HIV-1/2 Antigen and Antibodies, Fourth Generation, with Reflexes (12/17/2024 8:54 AM EDT) HIV AB/AG Nonreactive Nonreactive [facility] Comment:HIV-1 p24 Ag and/or HIV-1/HIV-2 Ab not detected.A test result that is nonreactive does not exclude thepossibility of exposure to or infection with HIV-1 and/orHIV-2. Nonreactive results in this assay for individualswith prior exposure to HIV-1 and/or HIV-2 may be due toantigen and antibody levels that are below the limit ofdetection of this assay.The [employer]it HIV Ag/Ab Combo assay result andsupplemental assay results should be interpreted inconjunction with the patient's clinical presentation,history and other laboratory results. If the results areinconsistent with clinical evidence, additional testing issuggested to confirm the result. 12/17/2024 8:54 AM EDT 12/17/2024 10:54 AM EDT Yves Day MD LAB BLOOD ORDERABLES Final Res ult Performing Organization Address [facility] Co de Phone Number [facility] [address] [place] [phone] * Hemoglobin A1c (12/17/2024 8:54 AM EDT) Hemoglobin A1c 5.4 <6.0 % [facility] Comment:Hemoglobin A1C Refer ence Range Adults: 4.8 - 6.0 % Non diabetic: < 6.0 % Goal: < 7.0 %Additional Action Suggested: > 8.0 %Note: Hemoglobin A1c results are invalid for patients with abnormal amounts of HbF. Blood transfusions may impact the HbA1c concentration in the patient sample. Estimated Average Glucose 108 mg/dL [facility] Comment:eAG = Estimated ave rage glucose which is %A1C expressed asaverage glucose, using the formula of the Z6C-XzxawpeQdespoo Glucose study (ADAG), Diabetes Care, Vol.31,#8,Dec. 2007 Blood Venous blood specimen / Unknown 12/17/2024 8:54 AM EDT 12/17/2024 10:54 AM EDT Desmond Golden [facility] LAB BLOOD ORDERABLES Kaye l Result Performing Organization Address [facility] Co de Phone Number [facility] [address] [place] [phone] * Hepatic Function Panel (12/17/2024 8:54 AM EDT) Bilirubin, Direct 0.2 0.0 - 0.5 mg/dL [facility] 12/17/2024 8:54 AM EDT 12/17/2024 10:54 AM EDT Yves Day MD LAB BLOOD ORDERABLES Final Res ult Performing Organization Address [facility] Co de Phone Number [facility] [address] [place] [phone] * Lipid Panel, Standard (12/17/2024 8:54 AM EDT) Triglycerides 52 <150 mg/dL [facility] Comment:Desirable Triglyceri de: less than 150 mg/dLBorderline High Triglyceride 150-199 mg/dLHigh Triglyceride: 200-499 mg/dLVery High Triglyceride: greater than or equal to 5OO mg/dL Cholesterol 101 <200 mg/dL [facility] Comment:Desirable Cholestero l: less than 200 mg/dLBorderline High Cholesterol: 200-239 mg/dLHigh Cholesterol: greater than 239 mg/dL LDL Cholesterol Calculated 48 <100 mg/dL [facility] Comment:Desirable LDL: less than 100 mg/dLNear Optimal/Above Optimal LDL: 110- 129 mg/dLBorderline High LDL: 130-159 mg/dLHigh LDL: 160-189 mg/dLVery High LDL: greater than or equal to 190 mg/dL HDL Cholesterol 43 >40 mg/dL [facility] Comment:Desirable HDL: great er than 40 mg/dL Note: This HDL assay may give artificially low results in patients with liver disease. Blood Venous blood specimen / Unknown 12/17/2024 8:54 AM EDT 12/17/2024 10:54 AM EDT [facility] LAB BLOOD ORDERABLES Kaye l Result [facility] [address] [place] [phone] * (ABNORMAL) Comprehensive Metabolic Panel (12/17/2024 8:54 AM EDT) Sodium 144 135 - 145 mmol/L [facility] Potassium 3.6 3.3 - 5.1 mmol/L [facility] Comment:Slight Hemolysis.Int erpret result with caution. Chloride 105 96 - 108 mmol/L [facility] Carbon Dioxide 29 22 - 29 mmol/L [facility] Anion Gap 14 12 - 20 [facility] Urea Nitrogen (BUN) 17(H) 9 - 16 mg/dL [facility] Creatinine, Serum 1.12 0.5 - 1.4 mg/dL [facility] Estimated Glomerular Filt Rate >60 [facility] Comment:Chronic Kidney Disea se: Estimated GFR < 60 mL/min/[id number] Kidney Disease: Estimated GFR < 15 mL/min/1.73m2 Glucose 91 60 - 115 mg/dL [facility] Calcium 9.0 8.4 - 10.2 mg/dL [facility] Bilirubin, Total 0.7 0.0 - 1.0 mg/dL [facility] Aspartate Amino Transferase 33 5 - 37 U/L [facility] Comment:Slight Hemolysis.Int erpret result with caution. Alanine Aminotransferase 20 0 - 40 U/L [facility] Total Protein 6.6 6.5 - 8.0 g/dL [facility] Albumin Level 4.0 3.5 - 5.0 g/dL [facility] Alkaline Phosphatase 126(H) 39 - 117 U/L [facility] Blood Venous blood specimen / Unknown 12/17/2024 8:54 AM EDT 12/17/2024 10:54 AM EDT Desmond Golden DOPER OPERATOR LAB BLOOD ORDERABLES Kaye l Result [facility] [address] [place] [phone] * Colonoscopy (03/22/2021) Colonoscopy Normal Normal 03/22/2021 Narrative Janis Kebede - 03/22/2021 12:55 PM EDT Recommended 10 year follow up Historical Provider MD HEALTH MAINTENANCE Final Result from Last 3 Months or Most Recently Relevant to Health Maintenance Insurance MEDICARE ADVANTAGE Care Teams Meter Inspector Relationship Specialty Start Date End Date Desmond Golden CNP PCP - General Family Medicine 12/16/24
--- OUTSIDE RECORDS SUMMARY | 2025-03-05 10:56 | XMS_ITS | Encounter Summary ---
Author Organization [employer] Address [address] [facility] [address] [place] [address] Care Team Providers Care Knitting Machine Operator Helper Name Role Phone Desmond Golden SHORTY Primary Care Provider [phone] Reason for Visit * Reason Onset Date Comments Med Refill 03/01/2025 Encounter Details Date Type Department Care Team (Late st Contact Info) Description 03/01/2025 Refill [facility] [address] [place] [address] Nany Segundo RN Opioid dependence in remission (CMS/HCC) ([facility]) Social History Tobacco Use Types Packs/Day Years [...] the past 12 months, has t he [employer], gas, oil or water [employer] threatened to shut off services in your [...] Description 03/16/2025 10:15 AM EDT Office Visit [facility] [address] [place] [address] Yves Day MD [address] [place] [address] documented as of this encounter Visit Diagnoses Diagnosis Opioid dependence in remission (CMS/HCC) (HCC) Opioid type dependence, in remission documented in this encounter Additional Health Concerns Assessment Noted Time PHQ-9 Depression Total Score: 6 12/17/19 25 3:26 PM EDT documented as of this encounter Care Teams Knitting Machine Operator Helper Relationship Specialty Start Date End Date Desmond Golden CNP PCP - General Family Medicine 12/16/24 documented as of this encounter
== END 2025-03-05 10:04 | disposition home or self-care (01) ==
LOC: HO.HPS 09:36
PROVIDERS: Visit Provider Hospitalist
DX: I26.99 Other pulmonary embolism without acute cor pulmonale (principal); J90 Pleural effusion, not elsewhere classified; I31.39 Other pericardial effusion (noninflammatory); J43.9 Emphysema, unspecified; J44.9 Chronic obstructive pulmonary disease, unspecified
CPT/HCPCS: 99214; G2211

== ENCOUNTER → 2025-03-05 09:36 | Outpatient (BNVA) | payer MEDICARE, SELFPAY | PROVIDERS: Visit Provider Hospitalist | DX: I26.99 Other pulmonary embolism without acute cor pulmonale (principal); J40 Bronchitis, not specified as acute or chronic; I31.39 Other pericardial effusion (noninflammatory); J43.9 Emphysema, unspecified; Z99.81 Dependence on supplemental oxygen; Z79.01 Long term (current) use of anticoagulants; Z87.891 Personal history of nicotine dependence | CPT/HCPCS: 99212 ==

== ENCOUNTER 2025-04-06 12:45 | Outpatient (REF) | payer MEDICARE, SELFPAY ==
--- NOTE | ~2025-04-06 | US_ITS ---
EXAMINATION: US TRIPLEX LOWER EXTREMITY, LEFT CLINICAL INFORMATION: History of DVT COMPARISON: November 23, 2024 TECHNIQUE: Color-flow triplex imaging with spectral analysis and compression Doppler were performed on the left lower extremity. FINDINGS: Again seen is an abnormality in an anterior branch of the mid posterior tibial vein also appears hypoechoic with little to no flow. The vessel is noncompressible. Additionally, the great saphenous vein is partially occluded along its deep wall near the saphenofemoral junction, improved since the prior. The vessel is minimally compressible in the mid and distal thigh, similar to the prior. Respiratory variation, normal compression and augmented flow are noted throughout the left lower extremity. The visualized common femoral vein, superficial femoral vein, profunda femoral vein, popliteal vein and midcalf peroneal venous segments show no evidence of deep venous thrombosis. 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 No acute thrombus. Electronically signed by: Casimiro Payne MD 04/06/2025 01:41 PM EST
== END 2025-04-06 12:46 | disposition home or self-care (01) ==
LOC: HO.US 12:45
DX: I82.422 Acute embolism and thrombosis of left iliac vein (principal)
CPT/HCPCS: 93971

== ENCOUNTER → 2025-04-06 12:46 | Outpatient (BNV) | payer MEDICARE, SELFPAY | PROVIDERS: Visit Provider Radiology Diagnostic Radiology | DX: I82.542 Chronic embolism and thrombosis of left tibial vein (principal); I82.812 Embolism and thrombosis of superficial veins of left lower extremity | CPT/HCPCS: 93971 ==

== ENCOUNTER 2025-04-13 08:23 | Outpatient (AMB) | payer MEDICARE, SELFPAY ==
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
--- OUTSIDE RECORDS SUMMARY | 2025-04-13 08:39 | XMS_ITS | Encounter Summary ---
Author Organization [employer] Address [address] [place] [address] 7 [place] [address] Care Team Providers Care Manager Apple Name Role Phone Name, Angel SANCHEZ Primary Care Provider Desmond Golden CNP Primary Care Provider [phone] Encounter Details Date Type Department Care Team (Late st Contact Info) Description 09/28/2022 Abstract [facility] [address] [place] [phone] Name, MD Angel [address] [place] [phone] Social History Tobacco Use Types Packs/Day Years [...] Care Team (Late st Contact Info) Description 04/13/2025 10:15 AM EST Office Visit [facility] [address] [place] [phone] Yves Day MD [address] [place] [address] [phone] 04/27/2025 10:00 AM EST Office Visit [facility] [address] [place], [place] [phone] Desmond Golden CNP [address] [place], [place] [phone] 06/08/2025 10:15 AM EST Office Visit [facility] [address] [place] [address] Yvse Day MD [address] [place] [address] 06/22/2025 9:00 AM EST Office Visit [facility] [address] [place], [place] [phone] Frances Frost MD [address] [place], [place] [phone] documented as of this encounter Procedures Procedure Name Priority Date/Time Associated Diagnosis Comments COLONOSCOPY Routine 03/22/2021 documented in this encounter Results * Colonoscopy (03/22/2021) Colonoscopy Normal Normal 03/22/2021 Gee Yandy Janis - 03/22/2021 12:55 PM EDT Recommended 10 year follow up us Historical Provider HEALTH MAINTENANCE Final Result documented in this encounter Visit Diagnoses Not on filedocumented in this encounter Care Teams Manager Apple Relationship Specialty Start Date End Date Name, MD Angel [address] [place] [phone] PCP - General Family Medicine 06/11/18 11/19/23 Desmond Golden CNP [address] [place] [phone] PCP - General Family Medicine 12/16/24 documented as of this encounter
--- OUTSIDE RECORDS SUMMARY | 2025-04-13 08:39 | XMS_ITS | Encounter Summary ---
Author Organization [employer] Address [address] [facility] 7t [place] [address] Care Team Providers Care Claim Clinician Name Role Phone Desmodn Golden SHORTY Primary Care Provider [phone] Reason for Visit * Reason Comments Med Refill Encounter Details Date Type Department Care Team (Late st Contact Info) Description 03/15/[address] [facility] [address] [place], [place] [phone] Yves Day MD [address] [place], [place] [phone] Opioid dependence in remission (CMS/HCC) ([facility]) Social History Tobacco Use Types Packs/Day Years [...] Upcoming Encounters Date Type Department Care Team ([facility] st Contact Info) Description 04/13/2025 10:15 AM EST Office Visit [facility] [address] [place] [phone] Yves Day MD [address] [place] [phone] 04/27/2025 10:00 AM EST Office Visit [facility] [address] [place] [address] Desmond Golden CNP [address] [place] [address] 06/08/2025 10:15 AM EST Office Visit [facility] [address] [place] [phone] Yves Day MD [address] [place] [phone] 06/22/2025 9:00 AM EST Office Visit [facility] [address] [place] [address] Frances Frost MD [address] [place] [address] documented as of this encounter Visit Diagnoses Diagnosis Opioid dependence in remission (CMS/HCC) (HCC) Opioid type dependence, in remission Opioid dependence on maintenance agonist therapy, no symptoms (CMS/HCC) (HCC)- Primary documented in this encounter Additional Health Concerns Assessment Noted Time PHQ-9 Depression Total Score: 6 12/17/19 25 3:26 PM EDT documented as of this encounter Care Teams Claim Clinician Relationship Specialty Start Date End Date Desmond Golden CNP PCP - General Family Medicine 12/16/24 documented as of this encounter
--- OUTSIDE RECORDS SUMMARY | 2025-04-13 08:39 | XMS_ITS | Clinical Summary ---
Author Organization [facility] Address [address] [place] [address] Care Team Providers Care Dishwasher Name Role Phone Unavailable Primary Care Provider [...] 09/2008 COLONOSCOPY 02/14/2015 PROCEDURE: HISTORICAL COLONOSCOPY; COMMENT: [facility]; Dr. Pablo Grider; negative/poor preparation. Repeat 5 years. COLONOSCOPY 12/05/2016 PROCEDURE: HISTORICAL COLONOSCOPY; COMMENT: [email or web address]; solitary 3 mm tubular adenoma from the transverse colon. Solitary small angiodysplasia in the transverse colon. UPPER GASTROINTESTINAL ENDOSCOPY 12/05/2016 PROCEDURE: [place] UPPER GI ENDOSCOPY PERFORMED; COMMENT: [email or web address]; duodenal biopsies normal; chronic gastritis with moderate [...] y of colonoscopy; COMMENT: Screening colonoscopy 02/14/2015, [facility], Dr. Pablo Grider, negative examination with suboptimal prep. Repeat 5 years. Helicobacter pylori infection 12/25/2016 DX :Helicobacter pylori infection; COMMENT: Upper GI endoscopy and biopsy 12/05/2016@[facility]. 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
--- OUTSIDE RECORDS SUMMARY | 2025-04-13 08:39 | XMS_ITS | Clinical Summary ---
Author Organization [employer] Address [address] [facility] [address] [place] [address] Care Team Providers Care [employer] Salesperson Name Role Phone Desmond Golden SHORTY Primary Care Provider [phone] Allergies Active Allergy Reactions Criticality Noted Date [...] puffs every 4 (four) hours. 18 g 11 5 12:18 PM EST 12/17/19 25 Active amitriptyline (Elavil) 10 MG tabletIndicati ons:Encounter to establish care Take 1 tablet (10 mg) by mouth at bedtime. 30 tablet 11 12/17/19 25 Active atorvastatin (Lipitor) 40 MG tabletIndicati ons:Encounter to establish care Take 1 tablet (40 mg) by mouth Once per day. 30 tablet 12/17/19 25 Active carvedilol (Coreg) 6.25 MG tabletIndicati ons:Encounter to establish care Take 1 tablet (6.25 mg) by mouth 2 times daily. 30 tablet 11 12/17/19 25 Active Eliquis 5 MG tabletIndicati ons:Encounter to establish care Take 1 tablet (5 mg) by mouth every 12 (twelve) hours. 60 tablet 11 12/17/19 25 Active furosemide (Lasix) 20 MG tabletIndicati ons:Encounter to establish care Take 1 tablet (20 mg) by mouth Once per day. 30 tablet 11 12/17/19 25 Active hydroCHLOROthi azide (HYDRODiuril) 25 MG tabletIndicati ons:Encounter to establish care Take 1 tablet (25 mg) by mouth every other day. 30 tablet 12/17/19 25 Active tiotropium (Spiriva HandiHaler) 18 MCG inhalation capsuleIndicat ions:Encounter to establish care Place 1 capsule (18 mcg) into inhaler and inhale in the morning. 30 capsule 11 12/17/19 25 Active meclizine (Antivert) 25 MG [...] constipation. 527 g 2 02/03/20 25 Active triamcinolone (Kenalog) 0.1 % creamIndicatio [...] obstructive pulmonary disease, unspecified COPD type (CMS/HCC) ([facility]),Pleural effusion,On home oxygen therapy Use device to check oxygen saturation daily. 1 each 02/18/20 25 Active albuterol (2.5 MG/3ML) 0.083% nebulizer solutionIndica tions:Chronic obstructive pulmonary disease, unspecified COPD type (CMS/HCC) ([facility]) TAKE 3 ML BY NEBULIZATION EVERY 4 HOURS NEEDED FOR WHEEZING 75 mL 12:18 PM EST 03/16/20 25 Active Buprenorphine HCl-Naloxone HCl (Suboxone) 8-2 MG SL filmIndication s:Opioid dependence in remission (CMS/HCC) ([facility]) Place 1 Film under the tongue Once per day. 28 Film 1 04/07/20 25 2025 Active albuterol (2.5 MG/3ML) 0.083% nebulizer solutionIndica tions:Chronic obstructive pulmonary disease, unspecified COPD type (CMS/HCC) ([facility]) TAKE 3 ML BY NEBULIZATION EVERY 4 HOURS NEEDED FOR WHEEZING 75 mL 02/16/20 25 2024 Discontinued(R eorder (will not trigger notification to Pharmacy)) Buprenorphine HCl-Naloxone HCl (Suboxone) 8-2 MG SL filmIndication s:Opioid dependence in remission (CMS/HCC) ([facility]) Place 1 Film under the tongue Once per day for 28 days. 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 History of colonoscopy 02/23/2015 Overview (12/16/2024): Screening colonoscopy 02/14/2015, [facility], Dr. Pablo Grider, negative examination with suboptimal prep. 12/05/2016: Colonoscopy@[facility]; small tubular adenoma of the transverse [...] of skull and face 06/26 Drug withdrawal ([facility]/HCC) 06/26/2005 Hepatitis C carrier ([facility]) 06/26/2005 Assessment & Plan (12/17/2024 5:37 PM EDT): Hep C testing ordered by [facility] program Will await HCV RNA results Tobacco use disorder 06/26/2005 Resolved Problems Problem Noted Date Diagnosed Date Resolved Date Acute hypoxic respiratory failure (CMS/HCC) 11/30/2024 12/17/2024 Encounters Date Type Department Care Team Description 04/07/2025 Refill [facility] [address] [place] [address] Nany Segundo RN Opioid dependence in remission (CMS/HCC) (HCC) 03/19/2025 Telephone [facility] [address] [place] [address] Desmond Golden CNP Pre-op Exam 03/16/2025 10:15 AM EDT Office Visit [facility] [address] [place] [phone] Yves Day MD Opioid dependence on maintenance agonist therapy, no symptoms (CMS/HCC) (HCC) (Primary Dx) 03/16/2025 Travel 03/15/2025 Refill [facility] [address] [place] [phone] Yves Day MD Opioid dependence in remission (CMS/HCC) (HCC) 03/15/2025 Refill [facility] [address] [place] [address] Desmond Golden CNP Chronic obstructive pulmonary disease, unspecified COPD type (CMS/HCC) (HCC) 03/11/2025 Telephone [facility] [address] [place] [phone] Desmond Golden CNP lower extremity venous order 03/11/2025 Refill [facility] [address] [place] [phone] Nany Segundo RN Opioid dependence in remission (CMS/HCC) (HCC) 03/01/2025 Refill [facility] [address] [place] [address] Nany Segundo RN Opioid dependence in remission (CMS/HCC) (HCC) 02/17/2025 9:45 AM EDT Office Visit [facility] [address] [place] [address] Desmond Golden CNP Transaminitis (Primary Dx); Encounter to establish care; Deep vein thrombosis (DVT) of tibial vein of left lower extremity, unspecified chronicity (HCC); Venous stasis dermatitis; Seborrheic keratosis; Chronic migraine w/o aura w/o status migrainosus, not intractable; Other chronic pain; Chronic obstructive pulmonary disease, unspecified COPD type (CMS/HCC) (HCC); Pleural effusion; On home oxygen therapy; Encounter for immunization 02/17/2025 Travel 02/17/2025 Telephone [facility] [address] [place] [address] Desmond Golden CNP chat prep 02/16/2025 9:30 AM EDT Clinical Support [address] [address] Nany Segundo RN Opioid dependence in remission (CMS/HCC) (Primary Dx) 02/16/2025 Travel 02/15/2025 Refill [facility] [address] [place] [address] Desmond Golden CNP Chronic obstructive pulmonary disease, unspecified COPD type (CMS/HCC) 02/11/2025 Orders Only GENERIC EXTERNAL DATA DEPARTMENT Provider, Generic External Data 02/10/2025 Refill [facility] [address] [place] [phone] Nany Segundo RN Opioid dependence in remission (CMS/HCC) 02/02/2025 10:45 AM EDT Clinical Support [address] [address] Nany Segundo, BETITO Opioid type dependence, continuous (CMS/HCC) (Primary Dx) 02/02/2025 Telephone [facility] [address] [place] [address] vYes Day MD 02/02/2025 Telephone [facility] [address] [place] [address] Yves Day MD 02/02/2025 Travel 01/26/2025 Refill [facility] [address] [place] [address] Nany Segundo RN Opioid dependence in remission ([facility]) 01/26/2025 Refill [facility] [address] [place] [address] Nany Segundo RN 01/19/2025 9:30 AM EDT Clinical Support [facility] [address] [place] [address] Nany Segundo RN Uncomplicated opioid dependence ([facility]) (Primary Dx) 01/19/2025 Travel 01/15/2025 Refill [facility] [address] [place] [address] Golden, [employer], CORROSION CONTROL FITTER 01/13/2025 Refill [facility] [address] [place], [place] [phone] Nany Segundo RN Opioid dependence in remission ([facility]) from Last 3 Months Immunizations Immunization Administration [...] Description 04/13/2025 10:15 AM EST Office Visit [facility] [address] [place] [phone] Yves Day MD [address] [place] [address] 04/27/2025 10:00 AM EST Office Visit [facility] [address] [place] [address] Desmond Golden CNP [address] [place] [address] 06/08/2025 10:15 AM EST Office Visit [facility] [address] [place] [phone] Yves Day MD [address] [place] [address] 06/22/2025 9:00 AM EST Office Visit [facility] [address] [place] [address] Frances Frost MD [address] [place] [address] Health Maintenance Due Date Last Done Comments [...] Procedure Name Priority Date/Time Associated Diagnosis Comments LOWER EXTREMITY VENOUS DUPLEX LEFT Routine 04/06/2025 1:06 PM EST Deep vein thrombosis (DVT) of tibial vein of left lower extremity, unspecified chronicity (HCC) POCT ANDRES-14 URINE DRUG SCREEN Routine 03/16/2025 9:14 AM EDT Opioid dependence on maintenance agonist therapy, no symptoms (CMS/HCC) (HCC) CTA CHEST PE PROTOCAL Routine 02/11/2025 10:04 AM EDT POCT CREATININE GFR Routine 02/11/2025 9 :24 AM EDT BASIC METABOLIC PANEL Routine 02/11/2025 8:13 AM EDT CBC WITH AUTO DIFFERENTIAL Routine 02/11/2025 8:13 AM EDT POCT ANDRES-14 URINE DRUG SCREEN Routine 02/02/2025 9:46 AM EDT Opioid type dependence, continuous (CMS/HCC) LIPID PANEL, STANDARD Routine 12/17/2024 8:54 AM EDT Encounter to establish care HM COLONOSCOPY Routine 03/22/2021 from Last 3 Months or Most Recently Relevant to Health Maintenance Results * Lower extremity venous duplex left (04/06/2025 1:06 PM EST) 04/06/2025 1:06 PM EST [facility] - 04/06/2025 1:44 PM [place] [address] Ultrasound Report Signed Patient: Aristides Yin MR#: [id number] 746 : 1950 Acct:[id number] Age/Sex: 75 / M ADM Date: 04/06/25 Loc: HO.US Attending Dr: Desmond Golden ENGINEERING PSYCHOLOGIST Ordering Physician: Desmond Golden NP Date of Service: 04/06/25 Procedure(s): US venous duplex LE Accession Number(s): [id number] cc: Desmond Golden NP Reason for Exam: hx of DVT EXAMINATION: US TRIPLEX LOWER EXTREMITY, LEFT CLINICAL INFORMATION: History of DVT COMPARISON: November 23, 2024 TECHNIQUE: Color-flow triplex imaging with spectral analysis and compression Doppler were performed on the left lower extremity. FINDINGS: Again seen is an abnormality in an anterior branch of the mid posterior tibial vein also appears hypoechoic with little to no flow. The vessel is noncompressible. Additionally, the great saphenous vein is partially occluded along its deep wall near the saphenofemoral junction, improved since the prior. The vessel is minimally compressible in the mid and distal thigh, similar to the prior. Respiratory variation, normal compression and augmented flow are noted throughout the left lower extremity. The visualized common femoral vein, superficial femoral vein, profunda femoral vein, popliteal vein and midcalf peroneal venous segments show no evidence of deep venous thrombosis. US/US venous duplex LE LT IMPRESSION: Chronic DVT anterior branch of posterior tibial vein in the lower leg. 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 No acute thrombus. Electronically signed by: Casimiro Payne MD 04/06/2025 01:41 PM EST Dictated By: Casimiro Payne MD Signed By: <Electronically signed by Casimiro Payne MD in OV> 04/06/25 1341 DD/ 1306 TD/TT: 04/06/25 1318 Reimbursement Counselor: Procedure Note Donotuseinterpreter, Image - 04/06/2025 [place] [address] Ultrasound Report Signed Patient: Frances Yin#: [id number] 746 : 8Acct:[id number] Age/Sex: 75 / MADM Date: 04/06/25 Loc: .US Attending Dr: Desmond Golden NP Ordering Physician: Desmond Golden NP Date of Service: 04/06/25 Procedure(s): US venous duplex LE LT Accession Number(s): [id number] cc: Desmond Golden NP Reason for Exam: hx of DVT EXAMINATION: US TRIPLEX LOWER EXTREMITY, LEFT CLINICAL INFORMATION: History of DVT COMPARISON: November 23, 2024 TECHNIQUE: Color-flow triplex imaging with spectral analysis and compression Doppler were performed on the left lower extremity. FINDINGS: Again seen is an abnormality in an anterior branch of the mid posterior tibial vein also appears hypoechoic with little to no flow. The vessel is noncompressible. Additionally, the great saphenous vein is partially occluded along its deep wall near the saphenofemoral junction, improved since the prior. The vessel is minimally compressible in the mid and distal thigh, similar to the prior. Respiratory variation, normal compression and augmented flow are noted throughout the left lower extremity. The visualized common femoral vein, superficial femoral vein, profunda femoral vein, popliteal vein and midcalf peroneal venous segments show no evidence of deep venous thrombosis. US/US venous duplex LE LT IMPRESSION: Chronic DVT anterior branch of posterior tibial vein in the lower leg. 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 No acute thrombus. Electronically signed by: Casimiro Payne MD 04/06/2025 01:41 PM EST Dictated By: Casimiro Payne MD Signed By: <Electronically signed by Casimiro Payne MD in OV> 04/06/25 1341 DD/ 1306 TD/TT: 04/06/25 1318 Reimbursement Counselor: Desmond Golden CNP CV VASCULAR PROCEDURES Fi nal Result [facility] [address] [place] [phone] * (ABNORMAL) POCT ANDRES-14 Urine Drug Screen (03/16/2025 9:14 AM EDT) Only the most recent of2 resultswithin the time period is included. THC [...] obtained by clean catch procedure / Unknown 03/16/2025 9:14 AM EDT Yves Day MD POINT OF CARE TEST ENTER/EDIT ORDERABLES Final Result * CTA Chest PE Protocal (02/11/2025 10:04 AM EDT) Anatomical Region Laterality Modality Body, Chest Computed Tomogra phy 02/11/2025 10:0 4 AM EDT Narrative 02/11/2025 10:46 AM EDT [address] [address] [address] Scan Report Signed Patient: Aristides Yin MR#: [id number] 746 : 1950 Acct:[id number] Age/Sex: 75 / M ADM Date: 02/11/25 Loc: .CT Attending Dr: Anupam Parada MD Ordering Physician: Anupam Parada MD Date of Service: 02/11/25 Procedure(s): CT angio chest PE protocol Accession Number(s): [id number] cc: Anupam Parada MD; Desmond Golden ENGINEERING PSYCHOLOGIST Report Number: [id number]: Total DLP = 96.00 mGy-cm Reason for [...] 02/11/25 1044 DD/ 1004 TD/TT: 02/11/25 1028 Reimbursement Counselor: Procedure Note Donotuseinterpreter, Image - 02/11/[address] [address] [address] Scan Report Signed Patient: Frances Yin#: [id number] 746 : 8Acct:[id number] Age/Sex: 75 / MADM Date: 02/11/25 Loc: HO.CT Attending Dr: Anupam Parada MD Ordering Physician: Anupam Parada MD Date of Service: 02/11/25 Procedure(s): CT angio chest PE protocol Accession Number(s): [id number] cc: Anupam Parada MD; Desmond Golden ENGINEERING PSYCHOLOGIST Report Number: [id number]: Total DLP = 96.00 mGy-cm Reason for [...] 02/11/25 1044 DD/ 1004 TD/TT: 02/11/25 1028 Reimbursement Counselor: [facility] External Provider IMG CT PROCEDURES Final Result * POCT Creatinine GFR (02/11/2025 9:24 AM EDT) [facility] POCT Creatinine 0.8 0.5 - 1.4 mg/dL [facility] GFR POC >60 [facility] Comment:Chronic Kidney Disea se: Estimated GFR < 60 mL/min/1.95w4Msgsul Kidney Disease: Estimated GFR < 15 mL/min/1.73m2 02/11/2025 9:24 AM EDT 02/11/2025 3:32 PM EDT Narrative [facility] - 02/11/2025 3:39 PM EDT [id number] Generic External Data Provider LAB POINT OF CARE TEST DOCKED DEVICE ORDERABLES Final Result [facility] [address] [place] [address] [phone] * (ABNORMAL) CBC auto differential (02/11/2025 8:13 AM EDT) [facility] White Blood Count 7.3 4.8 - 10.8 X10*3/uL [facility] Red Blood Count 4.30(L) 4.60 - 5.80 X10*6/uL [facility] Hemoglobin 12.3(L) 14.0 - 18.0 g/dl [facility] Hematocrit 36.8(L) 42.0 - 52.0 % [facility] Mean Corpuscular Volume 85.6 80.0 - 98.0 fL [facility] Mean Corpuscular Hemoglobin 28.6 27.0 - 33.0 pg [facility] Mean Corpuscular HGB Conc 33.4 31.0 - 36.0 g/dl [facility] Red Cell Distribution Width 13.2 11.0 - 16.0 % [facility] Platelet Count 183 160 - 400 X10*3/uL [facility] Mean Platelet Volume 10.2 9.4 - 12.4 fL [facility] Neutrophils Percent Auto 69.3 45 - 73 % [facility] Imm Gran Pct Auto 0.1 0.0 - 0.4 % [facility] Lymphocytes Percent Auto 18.7(L) 20 - 40 % [facility] Monocytes Percent Auto 8.9 2 - 11 % [facility] Eosinophils Percent Auto 2.3 0 - 4 % [facility] Basophils Percent Auto 0.7 0 - 2 % [facility] NRBC Pct Auto 0.0 0.0 - 0.2 /100WBC [facility] Neutrophils Absolute Auto 5.0 2.0 - 8.3 x10*3/uL [facility] Imm Gran Abs Auto 0.01 0.00 - 0.03 X10*3/uL [facility] Lymphocytes Absolute Auto 1.4 1.2 - 4.9 X10*3/uL [facility] Monocytes Absolute Auto 0.7 0.1 - 1.2 X10*3/uL [facility] Eosinophils Absolute Auto 0.2 0.0 - 0.4 X10*3/uL [facility] Basophils Absolute Auto 0.1 0.0 - 0.2 X10*3/uL [facility] NRBC Abs Auto 0.000 0.0 - 0.012 X10*3/uL [facility] 02/11/2025 8:13 AM EDT 02/11/2025 8:13 AM EDT Generic External Data Provider LAB BLOOD ORDERAB LES Final Result Performing Organization Address [facility]/ZIP Co de Phone Number [facility] [address] [place] [address] [phone] * (ABNORMAL) Basic Metabolic Panel (02/11/2025 8:13 AM EDT) Pathologist [facility] Sodium 145 135 - 145 mmol/L [facility] Potassium 3.7 3.3 - 5.1 mmol/L [facility] Chloride 107 96 - 108 mmol/L [facility] Carbon Dioxide 31(H) 22 - 29 mmol/L [facility] Anion Gap 11(L) 12 - 20 [facility] Urea Nitrogen (BUN) 17(H) 9 - 16 mg/dL [facility] Creatinine, Serum 0.93 0.5 - 1.4 mg/dL [facility] Estimated Glomerular Filt Rate >60 [facility] Comment:Chronic Kidney Disea se: Estimated GFR < 60 mL/min/1.53l5Jkewlf Kidney Disease: Estimated GFR < 15 mL/min/1.73m2 Glucose 98 60 - 115 mg/dL [facility] Calcium 9.4 8.4 - 10.2 mg/dL [facility] 02/11/2025 8:13 AM EDT 02/11/2025 8:13 AM EDT Generic External Data Provider LAB BLOOD ORDERAB LES Final Result Performing Organization Address City/[facility]/ZIP Co de Phone Number [facility] [address] [place] [address] [phone] * Lipid Panel, Standard (12/17/2024 8:54 AM EDT) Triglycerides 52 <150 mg/dL [facility] Comment:Desirable Triglyceri de: less than 150 mg/dLBorderline High Triglyceride 150-199 mg/dLHigh Triglyceride: 200-499 mg/dLVery High Triglyceride: greater than or equal to 5OO mg/dL Cholesterol 101 <200 mg/dL [facility] Comment:Desirable Cholestero l: less than 200 mg/dLBorderline High Cholesterol: 200-239 mg/dLHigh Cholesterol: greater than 239 mg/dL LDL Cholesterol Calculated 48 <100 mg/dL [facility] Comment:Desirable LDL: less than 100 mg/dLNear Optimal/Above Optimal LDL: 110- 129 mg/dLBorderline High LDL: 130-159 mg/dLHigh LDL: 160-189 mg/dLVery High LDL: greater than or equal to 190 mg/dL HDL Cholesterol 43 >40 mg/dL [facility] Comment:Desirable HDL: great er than 40 mg/dL Note: This HDL assay may give artificially low results in patients with liver disease. Blood Venous blood specimen / Unknown 12/17/2024 8:54 AM EDT 12/17/2024 10:54 AM EDT [facility] LAB BLOOD ORDERABLES Kaye l Result [facility] [address] [place] [address] [phone] * Colonoscopy (03/22/2021) Colonoscopy Normal Normal 03/22/2021 Narrative Janis Kebede - 03/22/2021 12:55 PM EDT Recommended 10 year follow up Historical Provider HEALTH MAINTENANCE Final Result from Last 3 Months or Most Recently Relevant to Health Maintenance Insurance [facility] [employer] [employer] Care Teams [employer] Salesperson Relationship Specialty Start Date End Date Desmond Golden CNP PCP - General Family Medicine 12/16/24
[2025-04-13 08:46] VITALS: BP 142/82; PULSE 90; O2SAT 95; BMI 25.0
== END 2025-04-13 09:13 | disposition home or self-care (01) ==
LOC: HO.HGI 08:24
PROVIDERS: Visit Provider Nurse Practitioner Family
DX: K21.9 Gastro-esophageal reflux disease without esophagitis (principal); K59.01 Slow transit constipation
CPT/HCPCS: 99204

== ENCOUNTER → 2025-04-13 08:23 | Outpatient (BNVA) | payer MEDICARE, SELFPAY | PROVIDERS: Visit Provider Nurse Practitioner Family | DX: K21.9 Gastro-esophageal reflux disease without esophagitis (principal); K59.01 Slow transit constipation; Z86.19 Personal history of other infectious and parasitic diseases | CPT/HCPCS: 99202 ==

== ENCOUNTER 2025-04-27 10:53 | Outpatient (REF) | payer MEDICARE, SELFPAY ==
[2025-04-27 14:25] LABS: MANUAL DIFF FLAG NO
[2025-04-27 14:29] LABS: Hematocrit 36.3 % (42.0-52.0); Hemoglobin 11.8 g/dl (14.0-18.0); Imm Gran Abs Auto 0.02 X10*3/uL (0.00-0.03); Imm Gran Pct Auto 0.3 % (0.0-0.4); Lymphocytes Absolute Auto 1.3 X10*3/uL (1.2-4.9); Mean Corpuscular HGB Conc 32.5 g/dl (31.0-36.0); Mean Corpuscular Hemoglobin 28.0 pg (27.0-33.0); Mean Corpuscular Volume 86.2 fL (80.0-98.0); NRBC Abs Auto 0.000 X10*3/uL (0.0-0.012); NRBC Pct Auto 0.0 /100WBC (0.0-0.2); Platelet Count 213 X10*3/uL (160-400); Red Blood Count 4.21 X10*6/uL (4.60-5.80); White Blood Count 5.9 X10*3/uL (4.8-10.8)
[2025-04-27 15:35] LABS: Folate 9.4 ng/mL (> or = 4.0); Vitamin B12 410 pg/mL (200-900)
== END 2025-04-27 10:54 | disposition home or self-care (01) ==
LOC: HO.CHCLDS 10:53
DX: Z13.21 Encounter for screening for nutritional disorder (principal); R53.83 Other fatigue
CPT/HCPCS: 36415; 82306; 82607; 82746; 85025

== ENCOUNTER 2025-05-04 11:38 | Outpatient (REF) | payer MEDICARE, SELFPAY ==
--- NOTE | ~2025-05-04 | XR_ITS ---
EXAMINATION: XR LUMBOSACRAL SPINE CLINICAL INFORMATION: recurrence of bilat LBP COMPARISON: Correlated to CT chest dated February 11, 2025. Prior x-ray dated July 01, 2012 is not available on PACS system. TECHNIQUE: AP and lateral views. FINDINGS: Transpedicular screws at L4, L5 and S1 bilaterally anchor with a vertical rods. 2 cm anterolisthesis at L4-5. Endplate sclerosis and marginal osteophyte formation at multiple levels of the axial skeleton. S-shaped curvature of the lumbar spine. Osteopenia versus osteoporosis. Vascular calcifications, aorta. Probable status post laminectomies, L4-5 and L5-S1. XR/XR lumbar spine 2-3V IMPRESSION: Status post posterior fusion L4 S1 with a grade 1 anterolisthesis at L4-5. Electronically signed by: Manuel Reeves MD 05/04/2025 12:47 PM JIMMY
--- OUTSIDE RECORDS SUMMARY | 2025-05-04 10:40 | XMS_ITS | Encounter Summary ---
Author Organization [employer] Address [address] [facility] [address] [place] [address] Care Team Providers Care Life Science Technician Name Role Phone Desmond Golden SHORTY Primary Care Provider [phone] [phone] Reason for Visit * Reason Comments UTI Encounter Details Date Type Department Care Team (Late st Contact Info) Description 05/04/2025 10:40 AM EST Office Visit [facility] [address] [place] [address] Chronic bilateral low back pain without sciatica (Primary Dx); UTI symptoms; Other chronic pain Social History Tobacco Use Types Packs/Day Years [...] Sign Reading Time Taken Comments Blood Pressure 136/76 05/04/2025 10:48 AM EST Pulse 100 05/04/2025 10:48 AM EST Temperature 36.8 C (98.3 F) 05/04/2025 10:48 AM EST Respiratory Rate 19 05/04/2025 10:48 AM EST Oxygen Saturation 96% 05/04/2025 10:48 AM EST Inhaled Oxygen Concentration - - Weight 78.9 kg (174 lb) 05/04/2025 10:48 AM EST Height - - Body Mass Index 25.7 04/27/2025 9:58 AM EST documented in this encounter Plan of Treatment Upcoming Encounters Date Type Department Care Team (Late st Contact Info) Description 06/08/2025 10:15 AM EST Office Visit [facility] [address] [place] [address] Yves Day MD [address] [place] [address] 06/22/2025 9:00 AM EST Office Visit [facility] [address] [place] [address] Frances Frost MD [address] [place] [address] Scheduled Orders Name Type Priority Associated Diagnoses Orde r Schedule Culture, Urine, Routine Microbiology Routine UTI symptoms Ordered: 05/04/2025 documented as of this encounter Procedures Procedure Name Priority Date/Time Associated Diagnosis Comments XR LUMBAR SPINE 2-3 VIEWS Routine 05/04/2025 12:30 PM EST Chronic bilateral low back pain without sciatica POCT URINALYSIS DIPSTICK Routine 05/04/2025 10:59 AM EST UTI symptoms documented in this encounter Results * XR Lumbar Spine 2-3 Views (05/04/2025 12:30 PM EST) Anatomical Region Laterality Modality Spine, L-spine Radiographic Renita ging 05/04/2025 12:3 0 PM EST Narrative 05/04/2025 12:50 PM EST [facility] [address] [place] [address] XRay Report Signed Patient: Aristides Yin MR#: [id number] : 1950 Acct:[id number] Age/Sex: 75 / M ADM Date: 05/04/25 Loc: .HHCX Attending Dr: Cristobal Frey MD Ordering Physician: CRISTOBAL FREY MD Date of Service: 05/04/25 Procedure(s): XR lumbar spine 2-3V Accession Number(s): [id number] cc: CRISTOBAL FREY MD Reason for Exam: recurrence of bilat LBP EXAMINATION: XR LUMBOSACRAL SPINE CLINICAL INFORMATION: recurrence of bilat LBP COMPARISON: Correlated to CT chest dated February 11, 2025. Prior x-ray dated July 01, 2012 is not available on PACS system. TECHNIQUE: AP and lateral views. FINDINGS: Transpedicular screws at L4, L5 and S1 bilaterally anchor with a vertical rods. 2 cm anterolisthesis at L4-5. Endplate sclerosis and marginal osteophyte formation at multiple levels of the axial skeleton. S-shaped curvature of the lumbar spine. Osteopenia versus osteoporosis. Vascular calcifications, aorta. Probable status post laminectomies, L4-5 and L5-S1. XR/XR lumbar spine 2-3V IMPRESSION: Status post posterior fusion L4 S1 with a grade 1 anterolisthesis at L4-5. Electronically signed by: Manuel Reeves MD 05/04/2025 12:47 PM EST RP Dictated By: Manuel Aguilar MD Signed By: <Electronically signed by Manuel Vick MD in OV> 05/04/25 1247 DD/ 1230 TD/TT: 05/04/25 1241 Ordnance Equipment Worker: Procedure Note Claytonotvarshainterpreter, Image - 05/04/[address] [address] XRay Report Signed Patient: Frances Yin#: [id number] : 8Acct:[id number] Age/Sex: 75 / MADM Date: 05/04/25 Loc: HO.HHCX Attending Dr: Cristobal Frey MD Ordering Physician: CRISTOBAL FREY MD Date of Service: 05/04/25 Procedure(s): XR lumbar spine 2-3V Accession Number(s): [id number] cc: CRISTOBAL FREY MD Reason for Exam: recurrence of bilat LBP EXAMINATION: XR LUMBOSACRAL SPINE CLINICAL INFORMATION: recurrence of bilat LBP COMPARISON: Correlated to CT chest dated February 11, 2025. Prior x-ray dated July 01, 2012 is not available on PACS system. TECHNIQUE: AP and lateral views. FINDINGS: Transpedicular screws at L4, L5 and S1 bilaterally anchor with a vertical rods. 2 cm anterolisthesis at L4-5. Endplate sclerosis and marginal osteophyte formation at multiple levels of the axial skeleton. S-shaped curvature of the lumbar spine. Osteopenia versus osteoporosis. Vascular calcifications, aorta. Probable status post laminectomies, L4-5 and L5-S1. XR/XR lumbar spine 2-3V IMPRESSION: Status post posterior fusion L4 S1 with a grade 1 anterolisthesis at L4-5. Electronically signed by: Manuel Reeves MD 05/04/2025 12:47 PM EST Dictated By: Manuel Aguilar MD Signed By: <Electronically signed by Manuel Vick MDin OV> 05/04/25 1247 DD/ 1230 TD/TT: 05/04/25 1241 Ordnance Equipment Worker: us Cristobal Frey MD IMG XR PROCEDURES Edited Result - Final * (ABNORMAL) POCT urinalysis dipstick manually resulted (CPT 53149) (05/04/2025 10:59 AM EST) Color, UA Yellow Comment:Dark Clarity, UA Clear Glucose, UA Negative Bilirubin, UA Negative Ketones, UA Negative Spec Grav, UA 1.010 Blood, UA Positive(A) Negative, None Detected Comment:Small pH, UA 5.5 Protein, UA Negative Urobilinogen, UA 0.2 Leukocytes, UA Negative Negative, Rare, Trace, 1+ (17), 2+ (35), 3+ (70), Trace (15) Nitrite, UA Negative Negative, None Detected Appearance, UA OK Urine (Urine, Random) 05/04/2025 10:59 AM EST us Cristobal Frey MD POINT OF CARE TEST ENTER/EDIT OR DERABLES Final Result documented in this encounter Visit Diagnoses Diagnosis Chronic bilateral low back pain without sciatica- Primary UTI symptoms Other chronic pain documented in this encounter Additional Health Concerns Assessment Noted Time PHQ-9 Depression Total Score: 6 12/17/19 25 3:26 PM EDT documented as of this encounter Care Teams Life Science Technician Relationship Specialty Start Date End Date Desmond Golden CNP PCP - General Family Medicine 12/16/24 documented as of this encounter
--- OUTSIDE RECORDS SUMMARY | 2025-05-04 15:29 | XMS_ITS | Encounter Summary ---
Author Organization [employer] Address [address] [facility] [address] [place] [address] Care Team Providers Care Senior Housekeeper Name Role Phone Desmond Golden SHORTY Primary Care Provider [phone] [phone] Reason for Visit * Reason Comments Med Refill Encounter Details Date Type Department Care Team (Late st Contact Info) Description 03/15/2025 Refill [facility] [address] [place], [place] [phone] Yves Day MD [address] [place], [place] [phone] Opioid dependence in remission (CMS/HCC) ([facility]) Social History Tobacco Use Types Packs/Day Years [...] Description 06/08/2025 10:15 AM EST Office Visit [facility] [address] [place] [address] Yves Day MD [address] [place] [address] 06/22/2025 9:00 AM EST Office Visit [facility] [address] [place], [place] [phone] Frances Frost MD [address] [place] [address] documented as of this encounter Visit Diagnoses Diagnosis Opioid dependence in remission (CMS/HCC) (HCC) Opioid type dependence, in remission documented in this encounter Additional Health Concerns Assessment Noted Time PHQ-9 Depression Total Score: 6 12/17/19 25 3:26 PM EDT documented as of this encounter Care Teams Senior Housekeeper Relationship Specialty Start Date End Date Desmond Golden CNP PCP - General Family Medicine 12/16/24 documented as of this encounter
--- OUTSIDE RECORDS SUMMARY | 2025-05-04 15:29 | XMS_ITS | Clinical Summary ---
Author Organization [facility] Address [address] [place] [address] Care Team Providers Care Security Strategist Name Role Phone Unavailable Primary Care Provider [...] 09/2008 COLONOSCOPY 02/14/2015 PROCEDURE: HISTORICAL COLONOSCOPY; COMMENT: [facility]; Dr. Pablo Grider; negative/poor preparation. Repeat 5 years. COLONOSCOPY 12/05/2016 PROCEDURE: HISTORICAL COLONOSCOPY; COM[place] [facility] [place]; solitary 3 mm tubular adenoma from the transverse colon. Solitary small angiodysplasia in the transverse colon. UPPER GASTROINTESTINAL ENDOSCOPY 12/05/2016 PROCEDURE: [place] UPPER GI ENDOSCOPY PERFORMED; COMMENT[place] [facility]; duodenal biopsies normal; chronic gastritis with [...] y of colonoscopy; COMMENT: Screening colonoscopy 02/14/2015, [facility], Dr. Pablo Grider, negative examination with suboptimal prep. Repeat 5 years. Helicobacter pylori infection 12/25/2016 DX :Helicobacter pylori infection; COMMENT: Upper GI endoscopy and biopsy 12/05/2016@[facility]. 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
--- OUTSIDE RECORDS SUMMARY | 2025-05-04 15:29 | XMS_ITS | Encounter Summary ---
Author Organization [employer] Address [address] [facility] [address] [place] [address] Care Team Providers Care Hollow Ware Maker Name Role Phone Desmond Golden CNP Primary Care Provider [phone] [phone] Reason for Visit * Reason Onset Date Comments Nurse Triage 05/03/2025 Encounter Details Date Type Department Care Team (Late st Contact Info) Description 05/03/2025 Telephone [facility] [address] [place] [address] Desmond Golden CNP [address] [place] [address] Nurse Triage Social History Tobacco Use Types Packs/Day Years [...] encounter Miscellaneous Notes * Telephone Encounter - Elkin Sanchez RN - 05/04/2025 9:37 AM EST TC placed to patient daughter (Mckenna) on HIPPA. Patient daughter reported patient c/o lower back pain, no injury and possible UTI per pt. Patient daughter wants to have an appt for further evaluation. RN scheduled an appt in the [facility] for further evaluation. RN advised patient daughter ifhis symptoms worsen before the appt to go to the ED for further evaluation. Daughter verbalized understanding. Protocol Used: Back Pain (Adult) Protocol-Based Disposition: See in Office or Video Visit within 3 Days Video visit offer not recorded Positive Triage Questions: * Moderate back pain (e.g., interferes with normal activities) and present > 3 days * Patient wants to be seen * Back pain * All higher-acuity triage questions were negative. Care Advice Discussed: * Reassurance and Education - Back Pain * Cold or Heat * Sleep * Continue Activity * Pain Medicines * Pain Medicines - Extra Notes and Warnings * Reasons To Call Back - Severe pain not better after taking pain medicines - Moderate pain (interferes with normal activities) lasts over 3 days - Pain begins to shoot into the leg - Pain lasts over 2 weeks - Fever occurs - Numbness or weakness occurs - Loss of control of your bladder or bowel - You become worse * Telephone Encounter - Rea Quintana - 05/04/2025 8:17 AM EST Tc from Daughter returning call Contact daughter at [phone] * Telephone Encounter - Svetlana Vidales RN - 05/03/2025 12:37 PM EST TC to patient with spanish speaking babysitter to triage patient for back pain.. No answer. Message left toreturn call to office. 12:45 Attempted to contact ivan Andres via TC to triage. No answer. Message left to return call to office. * Telephone Encounter - Alfonzo Parada - 05/03/2025 11:26 AM EST Symptom: Back Pain - Not From Injury Outcome: Schedule an appointment to be seen within 3 days Reason: Caller denied all higher acuity questions Please contact pt ivan andres At [phone] documented in this encounter Plan of Treatment Upcoming Encounters Date Type Department Care Team (Late st Contact Info) Description 06/08/2025 10:15 AM EST Office Visit [facility] [address] [place] [address] Yves Day MD [address] [place] [address] 06/22/2025 9:00 AM EST Office Visit [facility] [address] [place] [address] Frances Frost MD [address] [place] [address] documented as of this encounter Visit Diagnoses Not on filedocumented in this encounter Additional Health Concerns Assessment Noted Time PHQ-9 Depression Total Score: 6 12/17/19 25 3:26 PM EDT documented as of this encounter Care Teams Hollow Ware Maker Relationship Specialty Start Date End Date Desmond Golden CNP PCP - General Family Medicine 12/16/24 documented as of this encounter
--- OUTSIDE RECORDS SUMMARY | 2025-05-04 15:29 | XMS_ITS | Encounter Summary ---
Author Organization [employer] Address [address] [facility] [address] [place] [address] Care Team Providers Care Deputy Sheriff Custody Name Role Phone Desmond Golden SHORTY Primary Care Provider [phone] [phone] Encounter Details Date Type Department Care Team (Latest Contact Info) Description 05/04/2025 Travel Social History Tobacco Use Types Packs/Day [...] Description 06/08/2025 10:15 AM EST Office Visit [facility] [address] [place] [address] Yves Day MD [address] [place], [place] [phone] 06/22/2025 9:00 AM EST Office Visit [facility] [address] [place], [place] [phone] Frances Frost MD [address] [place], [place] [phone] documented as of this encounter Visit Diagnoses Not on filedocumented in this encounter Additional Health Concerns Assessment Noted Time PHQ-9 Depression Total Score: 6 12/17/19 25 3:26 PM EDT documented as of this encounter Care Teams Deputy Sheriff Custody Relationship Specialty Start Date End Date Desmond Golden CNP PCP - General Family Medicine 12/16/24 documented as of this encounter
--- OUTSIDE RECORDS SUMMARY | 2025-05-04 15:29 | XMS_ITS | Clinical Summary ---
Author Organization [employer] Address [address] [facility] [address] [place] [address] Care Team Providers Care Optometric Assistant Name Role Phone Desmond Golden SHORTY Primary Care Provider [phone] Allergies Active Allergy Reactions Criticality Noted Date Comments Shellfish Allergy 02/17/2025 Other Reaction(s): throat closes & heart races Shrimp (Diagnostic) 04/12/2009 Other Reaction(s): Hives/Urticaria, THROAT CLOSES Shrimp Extract 06/11/2018 Medications albuterol 108 (90 Base) MCG/ACT inhalerIndicat ions:Encounter to establish care Inhale 2 puffs every 4 (four) hours. 18 g 5 12:18 PM EST 12/17/19 25 Active amitriptyline (Elavil) 10 MG tabletIndicati ons:Encounter to establish care Take 1 tablet (10 mg) by mouth at bedtime. 30 tablet 5 1:11 PM EST 12/17/19 25 Active atorvastatin (Lipitor) 40 MG tabletIndicati ons:Encounter to establish care Take 1 tablet (40 mg) by mouth Once per day. 30 tablet 5 1:11 PM EST 12/17/19 25 Active carvedilol (Coreg) 6.25 MG tabletIndicati ons:Encounter to establish care Take 1 tablet (6.25 mg) by mouth 2 times daily. 30 tablet 5 1:11 PM EST 12/17/19 25 Active Eliquis 5 MG tabletIndicati ons:Encounter to establish care Take 1 tablet (5 mg) by mouth every 12 (twelve) hours. 60 tablet 5 1:11 PM EST 12/17/19 25 Active furosemide (Lasix) 20 MG tabletIndicati ons:Encounter to establish care Take 1 tablet (20 mg) by mouth Once per day. 30 tablet 5 1:11 PM EST 12/17/19 25 Active hydroCHLOROthi azide (HYDRODiuril) 25 MG tabletIndicati ons:Encounter to establish care Take 1 tablet (25 mg) by mouth every other day. 30 tablet 11 5 1:11 PM EST 12/17/19 25 Active tiotropium (Spiriva HandiHaler) 18 [...] mg) by mouth before breakfast. 30 tablet 5 1:11 PM EST 12/17/19 25 Active amLODIPine (Norvasc) 5 MG tabletIndicati ons:Encounter to establish care TAKE 1 TABLET BY MOUTH EVERY DAY 30 tablet 5 1:11 PM EST 12/18/19 25 Active famotidine (Pepcid) 10 MG tablet Take 20 mg by mouth Once per day. Active cetirizine (ZyrTEC) 10 MG tablet Take 1 tablet by mouth at bed time. 03/28/20 21 Active tamsulosin (Flomax) 0.4 MG 24 hr capsule TAKE 1 CAPSULE BY MOUTH EVERY DAY 30 capsule 3 5 1:11 PM EST 01/16/20 25 Active sennosides (Senokot) 8.6 MG [...] swelling). 30 g 2 02/18/20 25 Active Misc. Devices (Pulse Oximeter) miscIndication s:Chronic obstructive pulmonary disease, unspecified COPD type (CMS/HCC) ([facility]),Pleural effusion,On home oxygen therapy Use device to check oxygen saturation daily. 1 each 02/18/20 25 Active albuterol (2.5 MG/3ML) 0.083% nebulizer solutionIndica tions:Chronic obstructive pulmonary disease, unspecified COPD type (CMS/HCC) ([facility]) TAKE 3 ML BY NEBULIZATION EVERY 4 HOURS NEEDED FOR WHEEZING 75 mL 5 12:18 PM EST 03/16/20 Active Buprenorphine HCl-Naloxone HCl (Suboxone) 8-2 MG SL filmIndication s:Opioid dependence in remission (CMS/HCC) ([facility]) Place 1 Film under the tongue Once per day. 28 Film 1 5 10:25 AM EST 04/07/20 25 2025 Active docusate sodium (Colace) 100 MG capsule TAKE 1 TO 2 CAPSULES BY MOUTH AT BEDTIME NEEDED FOR CONSTIPATION 60 capsule 3 5 1:11 PM EST 04/13/20 25 Active ketorolac (Acular) 0.5 % ophthalmic solution 04/09/20 25 Active Spiriva HandiHaler 18 MCG capsule USE 1 CAPSULE FOR INHALATION ONCE A DAY DO NOT SWALLOW CAPSULE IN THE MORNING 03/15/20 25 Active Anoro Ellipta 62.5-25 MCG/ACT aerosol powder inhale 1 puff by mouth daily 03/30/20 25 Active Diclofenac Sodium 1 % gelIndications :Other chronic pain Apply to affected areas twice daily for pain relief. 50 g 2 5 12:36 PM EST 05/04/20 Active acetaminophen (Tylenol) 500 MG tablet Take 2 tablets (1,000 mg) by mouth every 6 (six) hours if needed for moderate pain or fever. 50 tablet 1 5 12:36 PM EST 05/04/20 Active docusate sodium (Colace) 100 MG capsule 1 or 2 capsules PO at bedtime prn constipation (stool softener). 60 capsule 3 12/09/19 25 2024 Discontinued Diclofenac Sodium 1 % gelIndications :Other chronic pain Apply to affected areas twice daily for pain relief. 50 g 02/18/20 25 2024 Discontinued(R eorder (will not trigger notification to Pharmacy)) Buprenorphine HCl-Naloxone HCl (Suboxone) 8-2 MG SL filmIndication s:Opioid dependence in remission (CMS/[facility]) ([facility]) Place 1 Film under the tongue Once per day for 28 days. 28 Film 03/15/20 25 2024 Discontinued(R eorder (will not trigger notification to Pharmacy)) Active Problems Problem Noted Date Diagnosed Date Heroin dependence (CMS/[facility]) 02/17/2025 Overview (02/17/2025): last use 1 year [...] by Discern Expert Opioid dependence in remission (CMS/HCC) 019 Hypertensive disorder 06/11/2018 Illiteracy 06/11/2018 Helicobacter pylori infection 12/25/2016 Overview (12/16/2024): Upper GI endoscopy and biopsy 12/05/2016@[facility]. History of colonoscopy 02/23/2015 Overview (12/16/2024): Screening colonoscopy 02/14/2015, [facility], Dr. Pablo Grider, negative examination with suboptimal prep. 12/05/2016: Colonoscopy@[facility]; small tubular adenoma of the transverse [...] of skull and face 06/26 Drug withdrawal (CMS/HCC) 06/26/2005 Hepatitis C carrier (CMS/HCC) 06/26/2005 Assessment & Plan (12/17/2024 5:37 PM EDT): Hep C testing ordered by [facility] program Will await HCV RNA results Tobacco use disorder 06/26/2005 Resolved Problems Problem Noted Date Diagnosed Date Resolved Date Acute hypoxic respiratory failure (CMS/HCC) 11/30/2024 12/17/2024 Encounters Date Type Department Care Team Description 05/04/2025 10:40 AM EST Office Visit [facility] [address] [place] [address] Chronic bilateral low back pain without sciatica (Primary Dx); UTI symptoms; Other chronic pain 05/04/2025 Travel 05/03/2025 Telephone [facility] [address] [place] [address] Desmond Golden CNP Nurse Triage 04/27/2025 10:00 AM EST Office Visit [facility] [address] [place] [address] Desmond Golden CNP Pre-op evaluation (Primary Dx); Chronic obstructive pulmonary disease, unspecified COPD type (CMS/HCC) (HCC); Essential hypertension, benign; Iron deficiency anemia secondary to inadequate dietary iron intake 04/27/2025 Travel 04/26/2025 Telephone [facility] [address] [place] [address] Desmond Golden CNP chart prep 04/13/2025 10:15 AM EST Office Visit [facility] [address] [place] [address] Yves Day MD Opioid dependence on maintenance agonist therapy, no symptoms (CMS/HCC) (HCC) (Primary Dx) 04/13/2025 Refill [facility] [address] [place] [address] Yves Day MD 04/07/2025 Refill [facility] [address] [place] [address] Nany Segundo RN Opioid dependence in remission (CMS/HCC) (HCC) 03/19/2025 Telephone [facility] [address] [place] [address] Desmond Golden CNP Pre-op Exam 03/16/2025 10:15 AM EDT Office Visit [facility] [address] [place] [address] Yves Day MD Opioid dependence on maintenance agonist therapy, no symptoms (CMS/HCC) (HCC) (Primary Dx) 03/16/2025 Travel 03/15/2025 Refill [facility] [address] [place] [address] Yves Day MD Opioid dependence in remission (CMS/HCC) (HCC) 03/15/2025 Refill [facility] [address] [place] [address] Desmond Golden CNP Chronic obstructive pulmonary disease, unspecified COPD type (CMS/HCC) (HCC) 03/11/2025 Telephone [facility] [address] [place] [address] Desmond Golden CNP lower extremity venous order 03/11/2025 Refill [facility] [address] [place] [address] Nany Segundo RN Opioid dependence in remission ([facility]/HCC) ([facility]) 03/01/2025 Refill [facility] [address] [place] [address] Nany Segundo RN Opioid dependence in remission ([facility]/HCC) (HCC) 02/17/2025 9:45 AM EDT Office Visit [facility] [address] [place] [address] Desmond Golden CNP Transaminitis (Primary Dx); Encounter to establish care; Deep vein thrombosis (DVT) of tibial vein of left lower extremity, unspecified chronicity ([facility]); Venous stasis dermatitis; Seborrheic keratosis; Chronic migraine w/o aura w/o status migrainosus, not intractable; Other chronic pain; Chronic obstructive pulmonary disease, unspecified COPD type ([facility]/HCC) ([facility]); Pleural effusion; On home oxygen therapy; Encounter for immunization 02/17/2025 Travel 02/17/2025 Telephone [facility] [address] [place] [address] Desmond Golden CNP chat prep 02/16/2025 9:30 AM EDT Clinical Support [facility] [address] [place] [phone] Nany Segundo RN Opioid dependence in remission ([facility]/HCC) (Primary Dx) 02/16/2025 Travel 02/15/2025 Refill [facility] [address] [place] [address] Desmond Golden CNP Chronic obstructive pulmonary disease, unspecified COPD type ([facility]/HCC) 02/11/2025 Orders Only GENERIC EXTERNAL DATA DEPARTMENT Provider, Generic External Data 02/10/2025 Refill [facility] [address] [place] [address] Nany Segundo RN Opioid dependence in remission ([facility]/HCC) 02/02/2025 10:45 AM EDT Clinical Support [facility] [address] [place] [address] Nany Segundo RN Opioid type dependence, continuous ([facility]/HCC) (Primary Dx) 02/02/2025 Telephone [facility] [address] [place] [address] Yves Day MD 02/02/2025 Telephone [facility] [address] [place] [address] Yves Day MD 02/02/2025 Travel from Last 3 Months Immunizations Immunization [...] (174 lb) 05/04/2025 10:48 AM EST Height 175.3 cm (5' 9 ) 04/27/2025 9:58 AM EST Body Mass Index 25.7 04/27/2025 9:58 AM EST Plan of Treatment Upcoming Encounters Date Type Department Care Team (Late st Contact Info) Description 06/08/2025 10:15 AM EST Office Visit [facility] [address] [place] [address] Yves Day MD [address] [place] [address] 06/22/2025 9:00 AM EST Office Visit [facility] [address] [place] [address] Frances Frost MD [address] [place] [address] Health Maintenance Due Date Last Done Comments Hepatitis A Vaccines (1 of 2 - Risk 2-dose series) 01/20/1967 Zoster Vaccines (1 of 2) 01/20/1998 Hepatitis B Vaccines (1 of 3 - Risk 3-dose series) 2008 Alcohol/Substance Use Screening 12/16/2025 12/16/2024 Depression Screening 12/16/2025 12/16/2024, 12/17/19 25 SDOH Screening 12/16/2025 12/16/2024 RSV Patients and Patients Aged 60 years or older (1 - 1-dose 75+ series) 02/10/2026 Postponed from 01/20/2023 (Supply/Drug Shortage) COVID-19 Vaccine ( season) 2026 12/26/2021, 03/07/2021, 08/10/2020, Additional history exists Postponed from 01/18/2025 (Patient Refused) Tobacco Screening 05/04/2026 05/04/2025 Lipid Panel 12/17/2029 12/17/2024, 12/19/2020 DTaP/Tdap/Td Vaccines [...] Routine 05/04/2025 10:59 AM EST UTI symptoms VITAMIN B12/FOLATE, SERUM PANEL Routine 04/27/2025 10:54 AM EST Pre-op evaluation CBC WITH AUTO DIFFERENTIAL Routine 04/27/2025 10:54 AM EST Pre-op evaluation VITAMIN D,25-OH,TOTAL,IA Routine 04/27/2025 10:54 AM EST Pre-op evaluation LOWER EXTREMITY VENOUS DUPLEX LEFT Routine 04/06/2025 [...] Recently Relevant to Health Maintenance Results * XR Lumbar Spine 2-3 Views (05/04/2025 12:30 PM EST) Anatomical Region Laterality Modality Spine, L-spine Radiographic Renita ging 05/04/2025 12:3 0 PM EST Narrative 05/04/2025 12:50 PM EST [facility] [address] [place] [address] XRay Report Signed Patient: Aristides Yin MR#: [id number] 746 : 1950 Acct:[id number] Age/Sex: 75 / M ADM Date: 05/04/25 Loc: HO.HHCX Attending Dr: Cristobal Zamora MD Ordering Physician: CRISTOBAL ZAMORA MD Date of Service: 05/04/25 Procedure(s): XR lumbar spine 2-3V Accession Number(s): [id number] cc: CRISTOBAL ZAMORA MD Reason for Exam: recurrence of bilat [...] 05/04/25 1247 DD/ 1230 TD/TT: 05/04/25 1241 Propagator Laborer: Procedure Note Donotuseinterpreter, Image - 05/04/2025 [facility] [address] [place] [address] XRay Report Signed Patient: Gama YinR#: [id number] 746 : 8Acct:[id number] Age/Sex: 75 / MADM Date: 05/04/25 Loc: HO.HHCX Attending Dr: Cristobal Zamora MD Ordering Physician: CRISTOBAL ZAMORA MD Date of Service: 05/04/25 Procedure(s): XR lumbar spine 2-3V Accession Number(s): [id number] cc: CRISTOBAL ZAMORA MD Reason for Exam: recurrence of bilat [...] 05/04/25 1247 DD/ 1230 TD/TT: 05/04/25 1241 Propagator Laborer: Cristobal Zamora MD IMG XR PROCEDURES Edited Result - Final * (ABNORMAL) POCT urinalysis dipstick manually resulted (CPT 77458) (05/04/2025 10:59 AM EST) Color, UA Yellow [...] Urine (Urine, Random) 05/04/2025 10:59 AM EST Cristobal Zamora MD POINT OF CARE TEST ENTER/EDIT OR DERABLES Final Result * Vitamin D, 25-Hydroxy, Total, Immunoassay (04/27/2025 10:54 AM EST) Vitamin D 25-OH Total 41.2 >30 ng/mL [facility] Comment: Health Based Reference Values*< 20 ng/mL Aqiigulva89-95 ng/mL Insufficient> 30 ng/mL Sufficient*June SCHUMACHER. N Engl J Med. 2007;357:266-280There is no well-established upper level of normal vitamin Dlevels. Some laboratories use 50 ng/mL as an upper limit ofnormal. However, toxicity is patient-dependent and may occurat any level. Careful correlation with the patient'spresentation is necessary and, if there is concern forvitamin D toxicity, treatment should be consideredirrespective of the serum level.Care must be taken in interpreting Vitamin D results fromdifferent laboratories and methodologies. Published datademonstrated that results from patients undergoinghemodialysis may show a negative bias when tested withvarious automated 25-OH vitamin D assays when compared toLC-MS/MS.When testing samples from patients whose predominant form ofVitamin D is Vitamin D2, such as patients receiving VitaminD2 supplementation, results that are subtherapeutic shouldbe confirmed with another method such as LC-MS/MS. Blood Venous blood specimen / Unknown 04/27/2025 10:54 AM EST 04/27/2025 2:17 PM EST [facility] LAB BLOOD ORDERABLES Kaye l Result Performing Organization Address [facility] Co de Phone Number [facility] [address] [place] [phone] * Vitamin B12/Folate, Serum Panel (04/27/2025 10:54 AM EST) Pathologist [facility] Vitamin B12 410 200 - 900 pg/mL [facility] Comment:NORMAL 200-900 PG/ML INDETERMINATE 160-199 PG/ML DEFICIENT < 160 PG/ML Folate 9.4 > or = 4.0 ng/mL [facility] Comment:Reference Values:> o r = 4.0 ng/mL< 4.0 ng/mL suggests folate deficiency Methotrexate, aminopterin and folinic acid(leucovorin) are chemotherapeutic agents whose molecularstructures are similar to folate; therefore, the Architectfolate assay cannot be used for patients using these drugs. Blood Venous blood specimen / Unknown 04/27/2025 10:54 AM EST 04/27/2025 2:17 PM EST [facility] LAB BLOOD ORDERABLES Kaye l Result Performing Organization Address [facility] Co de Phone Number [facility] [address] [place] [phone] * (ABNORMAL) CBC auto differential (04/27/2025 10:54 AM EST) Only the most recent of2 resultswithin the time period is included. Pathologist [facility] White Blood Count 5.9 4.8 - 10.8 X10*3/uL [facility] Red Blood Count 4.21(L) 4.60 - 5.80 X10*6/uL [facility] Hemoglobin 11.8(L) 14.0 - 18.0 g/dl [facility] Hematocrit 36.3(L) 42.0 - 52.0 % [facility] Mean Corpuscular Volume 86.2 80.0 - 98.0 fL [facility] Mean Corpuscular Hemoglobin 28.0 27.0 - 33.0 pg [facility] Mean Corpuscular HGB Conc 32.5 31.0 - 36.0 g/dl [facility] Red Cell Distribution Width 14.5 11.0 - 16.0 % [facility] Platelet Count 213 160 - 400 X10*3/uL [facility] Mean Platelet Volume 10.3 9.4 - 12.4 fL [facility] Neutrophils Percent Auto 66.0 45 - 73 % [facility] Imm Gran Pct Auto 0.3 0.0 - 0.4 % [facility] Lymphocytes Percent Auto 21.6 20 - 40 % [facility] Monocytes Percent Auto 9.5 2 - 11 % [facility] Eosinophils Percent Auto 1.9 0 - 4 % [facility] Basophils Percent Auto 0.7 0 - 2 % [facility] NRBC Pct Auto 0.0 0.0 - 0.2 /100WBC [facility] Neutrophils Absolute Auto 3.9 2.0 - 8.3 x10*3/uL [facility] Imm Gran Abs Auto 0.02 0.00 - 0.03 X10*3/uL [facility] Lymphocytes Absolute Auto 1.3 1.2 - 4.9 X10*3/uL [facility] Monocytes Absolute Auto 0.6 0.1 - 1.2 X10*3/uL [facility] Eosinophils Absolute Auto 0.1 0.0 - 0.4 X10*3/uL [facility] Basophils Absolute Auto 0.0 0.0 - 0.2 X10*3/uL [facility] NRBC Abs Auto 0.000 0.0 - 0.012 X10*3/uL [facility] Blood Venous blood specimen / Unknown 04/27/2025 10:54 AM EST 04/27/2025 2:17 PM EST Robejessica Golden PLASTIC DUPLICATOR LAB BLOOD ORDERABLES Kaye l Result [facility] [address] [place] [phone] * Lower extremity venous duplex left (04/06/2025 1:06 PM EST) 04/06/2025 1:06 PM EST Narrative [facility] - 04/06/2025 1:44 PM EST [address] [address] Ultrasound Report Signed Patient: Aristides Yin MR#: [id number] 746 : 1950 Acct:[id number] Age/Sex: 75 / M ADM Date: 04/06/25 Loc: HO.US Attending Dr: Desmond Golden CHEMICAL PROCESS OPERATOR Ordering Physician: Desmond Golden NP Date of Service: 04/06/25 Procedure(s): US venous duplex LE LT Accession Number(s): [id number] cc: Desmond Golden NP Reason for Exam: [...] Casimiro Payne MD 04/06/2025 01:41 PM EST RP Dictated By: Casimiro Payne MD Signed By: <Electronically signed by Casimiro Payne MD in OV> 04/06/25 1341 DD/ 1306 TD/TT: 04/06/25 1318 Propagator Laborer: Procedure Note Donotuseinterpreter, Image - 04/06/2025 [place] [address] Ultrasound Report Signed Patient: Frances Yin#: [id number] 746 : 8Acct:[id number] Age/Sex: 75 / MADM Date: 04/06/25 Loc: .US Attending Dr: Desmond Golden NP Ordering Physician: Desmond Golden NP Date of Service: 04/06/25 Procedure(s): US venous duplex LE LT Accession Number(s): [id number] cc: Desmond Golden NP Reason for Exam: [...] Casimiro Payne MD 04/06/2025 01:41 PM EST RP Dictated By: Casimiro Payne MD Signed By: <Electronically signed by Casimiro Payne MD in OV> 04/06/25 1341 DD/ 1306 TD/TT: 04/06/25 1318 Propagator Laborer: Desmond Golden CNP CV VASCULAR PROCEDURES Fi nal Result [facility] [address] [place] [address] [phone] * (ABNORMAL) POCT ANDRES-14 Urine Drug Screen [...] AM EDT Narrative 02/11/2025 10:46 AM EDT [address] [address] [address] Scan Report Signed Patient: Aristides Yin MR#: [id number] 746 : 1950 Acct:[id number] Age/Sex: 75 / M ADM Date: 02/11/25 Loc: HO.CT Attending Dr: Anupam Parada MD Ordering Physician: Anupam Parada MD Date of Service: 02/11/25 Procedure(s): CT angio chest PE protocol Accession Number(s): [id number] cc: Anupam Parada MD; Desmond Golden CHEMICAL PROCESS OPERATOR Report Number: [id number]: Total DLP = 96.00 mGy-cm Reason for [...] 02/11/25 1044 DD/ 1004 TD/TT: 02/11/25 1028 Propagator Laborer: Procedure Note Donotuseinterpreter, Image - 02/11/[address] [place] [address] [address] Scan Report Signed Patient: Frances Yin#: [id number] 746 : 8Acct:[id number] Age/Sex: 75 / MADM Date: 02/11/25 Loc: .CT Attending Dr: Anupam Parada MD Ordering Physician: Anupam Parada MD Date of Service: 02/11/25 Procedure(s): CT angio chest PE protocol Accession Number(s): [id number] cc: Anupam Parada MD; Desmond Golden CHEMICAL PROCESS OPERATOR Report Number: [id number]: Total DLP = 96.00 mGy-cm Reason for [...] 02/11/25 1044 DD/ 1004 TD/TT: 02/11/25 1028 Propagator Laborer: [facility] External Provider IMG CT PROCEDURES Final Result * POCT Creatinine GFR (02/11/2025 9:24 AM EDT) POCT Creatinine 0.8 0.5 - 1.4 mg/dL [facility] GFR POC >60 [facility] Comment:Chronic Kidney Disea se: Estimated GFR < 60 mL/min/1.95r6Tcbxrb Kidney Disease: Estimated GFR < 15 mL/min/1.73m2 02/11/2025 9:24 AM EDT 02/11/2025 3:32 PM EDT Narrative [facility] - 02/11/2025 3:39 PM EDT [id number] Generic External Data Provider LAB POINT OF CARE TEST DOCKED DEVICE ORDERABLES Final Result [facility] [address] [place] [address] [phone] * (ABNORMAL) Basic Metabolic Panel (02/11/2025 8:13 AM EDT) Sodium 145 135 - 145 mmol/L [facility] Potassium 3.7 3.3 - 5.1 mmol/L [facility] Chloride 107 96 - 108 mmol/L [facility] Carbon Dioxide 31(H) 22 - 29 mmol/L [facility] Anion Gap 11(L) 12 - 20 [facility] Urea Nitrogen (BUN) 17(H) 9 - 16 mg/dL [facility] Creatinine, Serum 0.93 0.5 - 1.4 mg/dL [facility] Estimated Glomerular Filt Rate >60 [facility] Comment:Chronic Kidney Disea se: Estimated GFR < 60 mL/min/1.33u1Mdurna Kidney Disease: Estimated GFR < 15 mL/min/1.73m2 Glucose 98 60 - 115 mg/dL [facility] Calcium 9.4 8.4 - 10.2 mg/dL [facility] 02/11/2025 8:13 AM EDT 02/11/2025 8:13 AM EDT us Generic External Data Provider LAB BLOOD ORDERAB LES Final Result Performing Organization Address [facility] Co de Phone Number [facility] [address] [place] [phone] * Lipid Panel, Standard (12/17/2024 8:54 AM EDT) Triglycerides 52 <150 mg/dL [facility] Comment:Desirable Triglyceri de: less than 150 mg/dLBorderline High Triglyceride 150-199 mg/dLHigh Triglyceride: 200-499 mg/dLVery High Triglyceride: greater than or equal to 5OO mg/dL Cholesterol 101 <200 mg/dL [facility] Comment:Desirable Cholestero l: less than 200 mg/dLBorderline High Cholesterol: 200-239 mg/dLHigh Cholesterol: greater than 239 mg/dL LDL Cholesterol Calculated 48 <100 mg/dL [facility] Comment:Desirable LDL: less than 100 mg/dLNear [...] AM EDT 12/17/2024 10:54 AM EDT us Desmond Golden PLASTIC DUPLICATOR LAB BLOOD ORDERABLES Kaye l Result Performing Organization Address City/[facility]/ZIP Co de Phone Number [facility] [address] [place] [address] [phone] * Colonoscopy (03/22/2021) Colonoscopy Normal Normal 03/22/2021 Janis Adorno - 03/22/2021 12:55 PM EDT Recommended 10 year follow up Historical Provider MD HEALTH MAINTENANCE Final Result from Last 3 Months or Most Recently Relevant to Health Maintenance Insurance [employer] MED[employer]ARE [employer]AGE HMO Care Teams Optometric Assistant Relationship Specialty Start Date End Date Desmond Golden CNP PCP - General Family Medicine 12/16/24
--- OUTSIDE RECORDS SUMMARY | 2025-05-04 15:29 | XMS_ITS | Encounter Summary ---
Author Organization [employer] Address [address] [place] [address] [address] [place] [address] Care Team Providers Care Lead Performance Support Analyst Name Role Phone Name, Angel SANCHEZ Primary Care Provider [phone] Desmond Golden CNP Primary Care Provider [phone] Encounter Details Date Type Department Care Team (Late st Contact Info) Description 09/28/2022 Abstract [facility] [address] [place] [address] [phone] Name, MD Angel [address] [place] [phone] Social History Tobacco Use Types Packs/Day Years [...] Description 06/08/2025 10:15 AM EST Office Visit [facility] [address] [place] [phone] Yves Day MD [address] [place] [address] [phone] 06/22/2025 9:00 AM EST Office Visit [facility] [address] [place], [place] [phone] Frances Frost MD [address] [place], [place] [phone] documented as of this encounter Procedures Procedure Name Priority Date/Time Associated Diagnosis Comments COLONOSCOPY Routine 03/22/2021 documented in this encounter Results * Colonoscopy (03/22/2021) Colonoscopy Normal Normal 03/22/2021 Janis Adorno - 03/22/2021 12:55 PM EDT Recommended 10 year follow up us Historical Provider HEALTH MAINTENANCE Final Result documented in this encounter Visit Diagnoses Not on filedocumented in this encounter Care Teams Lead Performance Support Analyst Relationship Specialty Start Date End Date Name, MD Angel [address] [place] [address] PCP - General Family Medicine 06/11/18 11/19/23 Desmond Golden CNP [address] [place] [address] PCP - General Family Medicine 12/16/24 documented as of this encounter
== END 2025-05-04 11:39 | disposition home or self-care (01) ==
LOC: HO.HHCX 11:38
PROVIDERS: Visit Provider Emergency Medicine
DX: G89.29 Other chronic pain (principal); M54.50 Low back pain, unspecified; R39.9 Unspecified symptoms and signs involving the genitourinary system
CPT/HCPCS: 72100; 87086

== ENCOUNTER → 2025-05-04 11:40 | Outpatient (BNV) | payer MEDICARE, SELFPAY | PROVIDERS: Visit Provider Radiology Diagnostic Radiology | DX: M54.50 Low back pain, unspecified (principal) | CPT/HCPCS: 72100 ==

== ENCOUNTER 2025-05-19 13:56 | Outpatient (AMB) | payer MEDICARE, SELFPAY ==
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
[2025-05-19 14:06] VITALS: BP 122/68; PULSE 67; BMI 25.4
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
--- OUTSIDE RECORDS SUMMARY | 2025-05-19 15:13 | XMS_ITS | Encounter Summary ---
Author Organization [employer] Address [address] [facility] [address] [place] [address] Care Team Providers Care Parking Inspector Name Role Phone Desmond Golden SHORTY Primary Care Provider [phone] Reason for Visit * Reason Comments Med Refill Encounter Details Date Type Department Care Team (Late st Contact Info) Description 05/17/2025 Refill [facility] [address] [place] [address] [phone] Cristobal Zamora MD [address] [place] [address] Social History Tobacco Use Types Packs/Day Years [...] Care Team (Late st Contact Info) Description 06/02/2025 3:45 PM EST Office Visit [facility] [address] [place] [address] Desmond Golden CNP [address] [place] [address] 06/08/2025 10:15 AM EST Office Visit [facility] [address] [place] [phone] Yves Day MD [address] [place] [phone] 06/22/2025 9:00 AM EST Office Visit [facility] [address] [place] [address] Frances Frost MD [address] [place] [address] documented as of this encounter Visit Diagnoses Not on filedocumented in this encounter Additional Health Concerns Assessment Noted Time PHQ-9 Depression Total Score: 6 12/17/19 3:26 PM EDT documented as of this encounter Care Teams Parking Inspector Relationship Specialty Start Date End Date Desmond Golden CNP PCP - General Family Medicine 12/16/24 documented as of this encounter
--- OUTSIDE RECORDS SUMMARY | 2025-05-19 15:13 | XMS_ITS | Clinical Summary ---
Author Organization [employer] Address [address] [facility] 7t [place] [address] Care Team Providers Care Electric Motor Mechanic Name Role Phone Desmond Golden SHORTY Primary Care Provider [phone] Allergies Active Allergy Reactions Criticality Noted Date Comments Shellfish Allergy 02/17/2025 Other Reaction(s): throat closes & heart races Shrimp (Diagnostic) 04/12/2009 Other Reaction(s): Hives/Urticaria, THROAT CLOSES Shrimp Extract 06/11/2018 Medications albuterol 108 (90 Base) MCG/ACT inhalerIndicat ions:Encounter to establish care Inhale 2 puffs every 4 (four) hours. 18 g 11 5 3:09 PM EST 12/17/19 25 Active amitriptyline (Elavil) 10 MG tabletIndicati ons:Encounter to establish care Take 1 tablet (10 mg) by mouth at bedtime. 30 tablet 5 4:42 PM EST 12/17/19 25 Active atorvastatin (Lipitor) 40 MG tabletIndicati ons:Encounter to establish care Take 1 tablet (40 mg) by mouth Once per day. 30 tablet 5 4:42 PM EST 12/17/19 25 Active carvedilol (Coreg) 6.25 MG tabletIndicati ons:Encounter to establish care Take 1 tablet (6.25 mg) by mouth 2 times daily. 30 tablet 5 4:42 PM EST 12/17/19 25 Active Eliquis 5 MG tabletIndicati ons:Encounter to establish care Take 1 tablet (5 mg) by mouth every 12 (twelve) hours. 60 tablet 5 4:42 PM EST 12/17/19 25 Active furosemide (Lasix) 20 MG tabletIndicati ons:Encounter to establish care Take 1 tablet (20 mg) by mouth Once per day. 30 tablet 11 5 4:42 PM EST 12/17/19 25 Active hydroCHLOROthi azide [...] by mouth before breakfast. 30 tablet 5 4:42 PM EST 12/17/19 25 Active amLODIPine (Norvasc) 5 MG tabletIndicati ons:Encounter to establish care TAKE 1 TABLET BY MOUTH EVERY DAY 30 tablet 5 1:11 PM EST 12/18/19 25 Active famotidine (Pepcid) 10 MG tablet Take 20 mg by mouth Once per day. Active cetirizine (ZyrTEC) 10 MG tablet Take 1 tablet by mouth at bed time. 03/28/20 21 Active sennosides (Senokot) 8.6 MG tablet 1 [...] obstructive pulmonary disease, unspecified COPD type (CMS/HCC) ([facility]),Pleural effusion,On home oxygen therapy Use device to check oxygen saturation daily. 1 each 02/18/20 25 Active albuterol (2.5 MG/3ML) 0.083% nebulizer solutionIndica tions:Chronic obstructive pulmonary disease, unspecified COPD type (CMS/HCC) ([facility]) TAKE 3 ML BY NEBULIZATION EVERY 4 HOURS NEEDED FOR WHEEZING 75 mL 5 12:18 PM EST 03/16/20 Active Buprenorphine HCl-Naloxone HCl (Suboxone) 8-2 MG SL filmIndication s:Opioid dependence in remission (CMS/HCC) ([facility]) Place 1 Film under the tongue Once per day. 28 Film 1 5 3:52 PM EST 04/07/20 25 2025 Active docusate sodium (Colace) 100 MG capsule TAKE 1 TO 2 CAPSULES BY MOUTH AT BEDTIME NEEDED FOR CONSTIPATION 60 capsule 3 5 4:42 PM EST 04/13/20 25 Active ketorolac (Acular) [...] g 2 5 12:36 PM EST 05/04/20 25 Active acetaminophen (Tylenol) 500 MG tablet Take 2 tablets (1,000 mg) by mouth every 6 (six) hours if needed for moderate pain or fever. 50 tablet 1 5 4:42 PM EST 05/04/20 25 Active tamsulosin (Flomax) 0.4 MG 24 hr capsule TAKE 1 CAPSULE BY MOUTH EVERY DAY 30 capsule 3 5 3:09 PM EST 05/06/20 25 Active ferrous gluconate (Fergon) 324 (38 Fe) MG tabletIndicati ons:Iron deficiency anemia secondary to inadequate dietary iron intake Take 1 tablet (324 mg) by mouth with breakfast. 30 tablet 11 05/06/20 25 2025 Active tamsulosin (Flomax) 0.4 MG 24 hr capsule TAKE 1 CAPSULE BY MOUTH EVERY DAY 30 capsule 3 5 1:11 PM EST 01/16/20 25 2024 Discontinued Diclofenac Sodium 1 % gelIndications :Other chronic pain Apply to affected areas twice daily for pain relief. 50 g 02/18/20 25 2024 Discontinued(R eorder (will not trigger notification to Pharmacy)) Active Problems Problem Noted Date Diagnosed Date Heroin dependence ([facility]) 02/17/2025 Overview (02/17/2025): last use 1 year [...] [facility] Pt to follow up with Dr. Ivey- Hayde, workup for hypercoagulability? On home oxygen therapy [...] Overview (12/16/2024): Upper GI endoscopy and biopsy 12/05/2016@[facility]. History of colonoscopy 02/23/2015 Overview (12/16/2024): Screening colonoscopy 02/14/2015, [facility], Dr. Pablo Grider, negative examination with suboptimal prep. 12/05/2016: Colonoscopy@[facility]; small tubular adenoma of the transverse [...] Encounters Date Type Department Care Team Description 05/17/2025 Refill [facility] [address] [place] [phone] Cristobal Zamora MD 05/10/2025 Patient Outreach [facility] [address] [place] [address] Eleno Pineda Recovery Supports 05/07/2025 Travel 05/06/2025 Orders Only [facility] [address] [place] [phone] Desmond Golden CNP Iron deficiency anemia secondary to inadequate dietary iron intake (Primary Dx) 05/06/2025 Results Follow-Up [facility] [address] [place] [phone] Desmond Golden CNP Vitamin D, 25-Hydroxy, Total, Immunoassay, CBC auto differential, Vitamin B12/Folate, Serum Panel 05/06/2025 Refill [facility] [address] [place] [address] Desmond Golden CNP 05/04/2025 10:40 AM EST Office Visit [facility] [address] [place] [address] Cristobal Zamora MD Chronic bilateral low back pain without sciatica (Primary Dx); UTI symptoms; Other chronic pain 05/04/2025 Travel 05/03/2025 Telephone [facility] [address] [place] [phone] Desmond Golden CNP Nurse Triage 04/27/2025 10:00 AM EST Office Visit [facility] [address] [place] [address] Desmond Golden CNP Pre-op evaluation (Primary Dx); Chronic obstructive pulmonary disease, unspecified COPD type (CMS/HCC) (HCC); Essential hypertension, benign; Iron deficiency anemia secondary to inadequate dietary iron intake 04/27/2025 Travel 04/26/2025 Telephone [facility] [address] [place] [address] Desmond Golden CNP chart prep 04/13/2025 10:15 AM EST Office Visit [facility] [address] [place] [address] Yves Day MD Opioid dependence on maintenance agonist therapy, no symptoms (CMS/HCC) (HCC) (Primary Dx) 04/13/2025 Refill [facility] [address] [place] [address] Yves Day MD 04/07/2025 Refill [facility] [address] [place] [address] Nany Segundo, BETITO Opioid dependence in remission (CMS/HCC) (HCC) 03/19/2025 Telephone [facility] [address] [place] [address] Desmond Golden CNP Pre-op Exam 03/16/2025 10:15 AM EDT Office Visit [facility] [address] [place] [address] Yves Day MD Opioid dependence on maintenance agonist therapy, no symptoms (CMS/HCC) ([facility]) (Primary Dx) 03/16/2025 Travel 03/15/2025 Refill [facility] [address] [place] [address] Yves Day MD Opioid dependence in remission (CMS/HCC) ([facility]) 03/15/2025 Refill [facility] [address] [place], [place] [phone] Desmond Golden CNP Chronic obstructive pulmonary disease, unspecified COPD type (CMS/HCC) ([facility]) 03/11/2025 Telephone [employer] [address] [place] [address] Desmond Golden CNP lower extremity venous order 03/11/2025 Refill [facility] [address] [place] [address] Nany Segundo RN Opioid dependence in remission (CMS/HCC) ([facility]) 03/01/2025 Refill [facility] [address] [place] [address] Nany Segundo RN Opioid dependence in remission ([facility]/HCC) ([facility]) 02/17/2025 9:45 AM EDT Office Visit [facility] [address] [place], [place] [phone] Desmond Golden CNP Transaminitis (Primary Dx); Encounter to establish care; Deep vein thrombosis (DVT) of tibial vein of left lower extremity, unspecified chronicity ([facility]); Venous stasis dermatitis; Seborrheic keratosis; Chronic migraine w/o aura w/o status migrainosus, not intractable; Other chronic pain; Chronic obstructive pulmonary disease, unspecified COPD type (CMS/HCC) ([facility]); Pleural effusion; On home oxygen therapy; Encounter for immunization 02/17/2025 Travel 02/17/2025 Telephone [facility] [address] [place], [place] [phone] Desmond Golden CNP chat prep 02/16/2025 9:30 AM EDT Clinical Support [facility] [address] [place] [address] Nany Segundo RN Opioid dependence in remission ([facility]/HCC) (Primary Dx) 02/16/2025 Travel from Last 3 Months Immunizations Immunization [...] your housing situation today? I have dee valdo 12/16/[address] you li [...] Description 06/02/2025 3:45 PM EST Office Visit [facility] [address] [place], [place] [phone] Desmond Golden CNP [address] [place], [place] [phone] 06/08/2025 10:15 AM EST Office Visit [facility] [address] [place], [place] [phone] Yves Day MD [address] [place] [address] 06/22/2025 9:00 AM EST Office Visit [facility] [address] [place] [address] Frances Frost MD [address] [place] [address] Health Maintenance Due Date Last Done Comments [...] Chronic bilateral low back pain without sciatica CULTURE, URINE, ROUTINE Routine 05/04/2025 11:02 AM EST UTI symptoms POCT URINALYSIS DIPSTICK Routine 05/04/2025 10:59 AM [...] maintenance agonist therapy, no symptoms (CMS/HCC) (HCC) LIPID PANEL, STANDARD Routine 12/17/2024 8:54 AM EDT Encounter to establish care HM COLONOSCOPY Routine 03/22/2021 from Last 3 Months or Most Recently Relevant to Health Maintenance Results * XR Lumbar Spine 2-3 Views (05/04/2025 12:30 PM EST) Anatomical Region Laterality Modality Spine, L-spine Radiographic Renita ging 05/04/2025 12:3 0 PM EST Narrative 05/04/2025 12:50 PM EST [address] [address] XRay Report Signed Patient: Aristides Yin MR#: [id number] 746 : 1950 Acct:[id number] Age/Sex: 75 / M ADM Date: 05/04/25 Loc: HO.HHCX Attending Dr: Cristobal Zamora MD Ordering Physician: CRISTOBAL ZAMORA MD Date of Service: 05/04/25 Procedure(s): XR lumbar spine 2-3V Accession Number(s): [id number] cc: CRISTOBAL ZAMORA MD Reason for Exam: [...] 05/04/25 1247 DD/ 1230 TD/TT: 05/04/25 1241 Patient Services Manager: Procedure Note Donotuseinterpreter, Image - 05/04/2025 [address] [place] [address] XRay Report Signed Patient: Gama YinR#: [id number] 746 : 8Acct:[id number] Age/Sex: 75 / MADM Date: 05/04/25 Loc: HO.HHCX Attending Dr: Cristobal Zamora MD Ordering Physician: CRISTOBAL ZAMORA MD Date of Service: 05/04/25 Procedure(s): XR lumbar spine 2-3V Accession Number(s): [id number] cc: CRISTOBAL ZAMORA MD Reason for Exam: [...] 05/04/25 1247 DD/ 1230 TD/TT: 05/04/25 1241 Patient Services Manager: Cristobal Zamora MD IMG XR PROCEDURES Edited Result - Final * Culture, Urine, Routine (05/04/2025 11:02 AM EST) Urine Urine specimen obtained by clean catch procedure / Unknown 05/04/2025 11:02 AM EST 05/04/2025 4:13 PM EST Comment:[facility] - 05/06/2025 9:32 AM EST Urine Culture No growth. Specimen Source: Urine clean catch us Cristobal Zamora MD LAB MICROBIOLOGY - GENERAL ORDER YVETTE Final Result [facility] [address] [place] [phone] * (ABNORMAL) POCT urinalysis dipstick manually resulted (CPT 92773) (05/04/2025 10:59 AM EST) Color, UA Yellow [...] Random) 05/04/2025 10:59 AM EST us Cristobal Zamora MD POINT OF CARE TEST ENTER/EDIT OR DERABLES Final Result * Vitamin D, 25-Hydroxy, Total, Immunoassay (04/27/2025 10:54 AM EST) Vitamin D 25-OH Total 41.2 >30 ng/mL [facility] Comment: Health Based Reference Values*< 20 ng/mL Iqqntwung05-38 ng/mL Insufficient> 30 ng/mL Sufficient*June SCHUMACHER. N [...] 10:54 AM EST 04/27/2025 2:17 PM EST [facility] LAB BLOOD ORDERABLES Kaye l Result Performing Organization Address [facility] Co de Phone Number [facility] [address] [place] [address] [phone] * Vitamin B12/Folate, Serum Panel (04/27/2025 10:54 AM EST) Vitamin B12 410 200 - 900 pg/mL [facility] Comment:NORMAL 200-900 PG/ML INDETERMINATE 160-199 PG/ML DEFICIENT < 160 PG/ML Folate 9.4 > or = 4.0 ng/mL [facility] Comment:Reference Values:> o r = 4.0 ng/mL< 4.0 ng/mL suggests folate deficiency Methotrexate, aminopterin and folinic acid(leucovorin) are chemotherapeutic agents whose molecularstructures are similar to folate; therefore, the Architectfolate assay cannot be used for patients using these drugs. Blood Venous blood specimen / Unknown 04/27/2025 10:54 AM EST 04/27/2025 2:17 PM EST [facility] LAB BLOOD ORDERABLES Kaye l Result Performing Organization Address [facility]/ZIP Co de Phone Number [facility] [address] [place] [address] [phone] * (ABNORMAL) CBC auto differential (04/27/2025 10:54 AM EST) White Blood Count 5.9 4.8 - 10.8 X10*3/uL [facility] Red Blood Count 4.21(L) 4.60 - 5.80 X10*6/uL [facility] Hemoglobin 11.8(L) 14.0 - 18.0 g/dl [facility] Hematocrit 36.3(L) 42.0 - 52.0 % [facility] Mean Corpuscular Volume 86.2 80.0 - 98.0 fL [facility] Mean Corpuscular Hemoglobin 28.0 27.0 - 33.0 pg [facility] Mean Corpuscular HGB Conc 32.5 31.0 - 36.0 g/dl [facility] Red Cell Distribution Width 14.5 11.0 - 16.0 % [facility] Platelet Count 213 160 - 400 X10*3/uL [facility] Mean Platelet Volume 10.3 9.4 - 12.4 fL [facility] Neutrophils Percent Auto 66.0 45 - 73 % [facility] Imm Gran Pct Auto 0.3 0.0 - 0.4 % [facility] Lymphocytes Percent Auto 21.6 20 - 40 % [facility] Monocytes Percent Auto 9.5 2 - 11 % [facility] Eosinophils Percent Auto 1.9 0 - 4 % [facility] Basophils Percent Auto 0.7 0 - 2 % [facility] NRBC Pct Auto 0.0 0.0 - 0.2 /100WBC [facility] Neutrophils Absolute Auto 3.9 2.0 - 8.3 x10*3/uL [facility] Imm Gran Abs Auto 0.02 0.00 - 0.03 X10*3/uL [facility] Lymphocytes Absolute Auto 1.3 1.2 - 4.9 X10*3/uL [facility] Monocytes Absolute Auto 0.6 0.1 - 1.2 X10*3/uL [facility] Eosinophils Absolute Auto 0.1 0.0 - 0.4 X10*3/uL [facility] Basophils Absolute Auto 0.0 0.0 - 0.2 X10*3/uL [facility] NRBC Abs Auto 0.000 0.0 - 0.012 X10*3/uL [facility] Blood Venous blood specimen / Unknown 04/27/2025 10:54 AM EST 04/27/2025 2:17 PM EST us Desmond Golden DIRECTOR TRANSPORTATION LAB BLOOD ORDERABLES Kaye l Result Performing Organization Address City/State/[facility] Co de Phone Number [facility] [address] [place] [phone] * Lower extremity venous duplex left (04/06/2025 1:06 PM EST) 04/06/2025 1:06 PM EST Narrative [facility] - 04/06/2025 1:44 PM EST [address] [address] Ultrasound Report Signed Patient: Aristides Yin MR#: [id number] 746 : 1950 Acct:[id number] Age/Sex: 75 / M ADM Date: 04/06/25 Loc: . Attending Dr: Desmond Golden NP Ordering Physician: Desmond Golden NP Date of Service: 04/06/25 Procedure(s): US venous duplex LE Accession Number(s): [id number] cc: Desmond Golden NP Reason for Exam: [...] 04/06/25 1341 DD/ 1306 TD/TT: 04/06/25 1318 Patient Services Manager: Procedure Note Donotuseinterpreter, Image - 04/06/2025 [place] [address] Ultrasound Report Signed Patient: Frances Yin#: [id number] 746 : 8Acct:[id number] Age/Sex: 75 / MADM Date: 04/06/25 Loc: HO. Attending Dr: Desmond Golden NP Ordering Physician: Desmond Golden NP Date of Service: 04/06/25 Procedure(s): US venous duplex LE LT Accession Number(s): [id number] cc: Desmond Golden NP Reason for Exam: [...] 04/06/25 1341 DD/ 1306 TD/TT: 04/06/25 1318 Patient Services Manager: Desmond Golden DIRECTOR TRANSPORTATION CV VASCULAR PROCEDURES Fi nal Result [facility] [address] [place] [phone] * (ABNORMAL) POCT ANDRES-14 Urine Drug Screen (03/16/2025 9:14 AM EDT) THC Negative Negative Cocaine Screen, Urine Negative [...] CARE TEST ENTER/EDIT ORDERABLES Final Result * Lipid Panel, Standard (12/17/2024 8:54 AM EDT) Triglycerides 52 <150 mg/dL [facility] Comment:Desirable Triglyceri de: less than 150 mg/dLBorderline High Triglyceride 150-199 mg/dLHigh Triglyceride: 200-499 mg/dLVery High Triglyceride: greater than or equal to 5OO mg/dL Cholesterol 101 <200 mg/dL [facility] Comment:Desirable Cholestero l: less than 200 mg/dLBorderline High Cholesterol: 200-239 mg/dLHigh Cholesterol: greater than 239 mg/dL LDL Cholesterol Calculated 48 <100 mg/dL [facility] Comment:Desirable LDL: less than 100 mg/dLNear Optimal/Above Optimal LDL: 110- 129 mg/dLBorderline High LDL: 130-159 mg/dLHigh LDL: 160-189 mg/dLVery High LDL: greater than or equal to 190 mg/dL HDL Cholesterol 43 >40 mg/dL [facility] Comment:Desirable HDL: great er than 40 mg/dL Note: This HDL assay may give artificially low results in patients with liver disease. Blood Venous blood specimen / Unknown 12/17/2024 8:54 AM EDT 12/17/2024 10:54 AM EDT Robejessica Golden [facility] LAB BLOOD ORDERABLES Kaye l Result [facility] [address] [place] [phone] * Colonoscopy (03/22/2021) Colonoscopy Normal Normal 03/22/2021 Narrative Janis Kebede - 03/22/2021 12:55 PM EDT Recommended 10 year follow up Historical Provider HEALTH MAINTENANCE Final Result from Last 3 Months or Most Recently Relevant to Health Maintenance Insurance [facility] MEDICARE ADVANTAGE HMO Care Teams Electric Motor Mechanic Relationship Specialty Start Date End Date Desmond Golden CNP PCP - General Family Medicine 12/16/24
--- OUTSIDE RECORDS SUMMARY | 2025-05-19 15:13 | XMS_ITS | Encounter Summary ---
Author Organization [employer] Address [address] [facility] [address]t [place] [address] Care Team Providers Care Customer Care Specialist Name Role Phone Desmond Golden SHORTY Primary Care Provider [phone] Reason for Visit * Reason Comments Med Refill Encounter Details Date Type Department Care Team (Late st Contact Info) Description 03/15/2025 Refill [facility] [address] [place], [place] [phone] Yves Day MD [address] [place], [place] [phone] Opioid dependence in remission (CMS/HCC) ([facility]) Social History Tobacco Use Types Packs/Day [...] Upcoming Encounters Date Type Department Care Team ([facility] st Contact Info) Description 06/02/2025 3:45 PM EST Office Visit [facility] [address] [place] [address] Desmond Golden CNP [address] [place] [address] 06/08/2025 10:15 AM EST Office Visit [facility] [address] [place] [phone] Yvse Day MD [address] [place] [phone] 06/22/2025 9:00 AM EST Office Visit [facility] [address] [place] [address] Frances Frost MD [address] [place] [address] documented as of this encounter Visit Diagnoses Diagnosis Opioid dependence in remission (CMS/HCC) (HCC) Opioid type dependence, in remission documented in this encounter Additional Health Concerns Assessment Noted Time PHQ-9 Depression Total Score: 6 12/17/19 25 3:26 PM EDT documented as of this encounter Care Teams Customer Care Specialist Relationship Specialty Start Date End Date Desmond Golden CNP PCP - General Family Medicine 12/16/24 documented as of this encounter
--- OUTSIDE RECORDS SUMMARY | 2025-05-19 15:13 | XMS_ITS | Encounter Summary ---
Author Organization [employer] Address [address] [place] [address] 7 [place] [address] Care Team Providers Care Insurance Rater Name Role Phone Name, Angel SANCHEZ Primary Care Provider [phone] Desmond Golden CNP Primary Care Provider [phone] Encounter Details Date Type Department Care Team (Late st Contact Info) Description 09/28/2022 Abstract [facility] [address] [place] [phone] Name, MD Angel [address] [place] [phone] Social History Tobacco Use Types Packs/Day Years [...] Description 06/02/2025 3:45 PM EST Office Visit [facility] [address] [place] [address] Dsemond Golden CNP [address] [place] [address] 06/08/2025 10:15 AM EST Office Visit [facility] [address] [place] [phone] Yves Day MD [address] [place] [address] 06/22/2025 9:00 AM EST Office Visit [facility] [address] [place], [place] [phone] Frances Frost MD [address] [place], [place] [phone] documented as of this encounter Procedures Procedure Name Priority Date/Time Associated Diagnosis Comments COLONOSCOPY Routine 03/22/2021 documented in this encounter Results * Hm Colonoscopy (03/22/2021) Colonoscopy Normal Normal 03/22/2021 Janis Adorno - 03/22/2021 12:55 PM EDT Recommended 10 year follow up Historical Provider HEALTH MAINTENANCE Final Result documented in this encounter Visit Diagnoses Not on filedocumented in this encounter Care Teams Insurance Rater Relationship Specialty Start Date End Date Name, MD Angel [address] [place] [address] PCP - General Family Medicine 06/11/18 11/19/23 Desmond Golden CNP [address] [place] [address] PCP - General Family Medicine 12/16/24 documented as of this encounter
== END 2025-05-19 14:26 | disposition home or self-care (01) ==
LOC: HO.HCS 13:56
PROVIDERS: Visit Provider Internal Medicine
DX: I26.99 Other pulmonary embolism without acute cor pulmonale (principal); I31.39 Other pericardial effusion (noninflammatory); I25.10 Atherosclerotic heart disease of native coronary artery without angina pectoris
CPT/HCPCS: 99214; G2211

== ENCOUNTER → 2025-05-19 13:56 | Outpatient (BNVA) | payer MEDICARE, SELFPAY | PROVIDERS: Visit Provider Internal Medicine | DX: I26.99 Other pulmonary embolism without acute cor pulmonale (principal); I31.39 Other pericardial effusion (noninflammatory); I21.4 Non-ST elevation (NSTEMI) myocardial infarction; Z87.891 Personal history of nicotine dependence; I10 Essential (primary) hypertension; I25.10 Atherosclerotic heart disease of native coronary artery without angina pectoris; Z79.01 Long term (current) use of anticoagulants; I77.79 Dissection of other specified artery; I25.83 Coronary atherosclerosis due to lipid rich plaque | CPT/HCPCS: 99212 ==